=== PATIENT | male | born 1935 | race Hispanic/Latino ===

== ENCOUNTER 2017-11-01 16:04 | Observation (INO) | payer MEDICARE, OTHER ==
[2017-11-01] MEDS ORDERED: MORPHINE 4 MG/ML SYR ONE (16:21)
[2017-11-01] MEDS ORDERED: ONDANSETRON 4 MG/2 ML VIAL ONE (16:24)
[2017-11-01] MEDS ORDERED: Morphine 2 MG/2 ML SYR ONE (16:26)
[2017-11-01 16:39] LABS: Absolute Lymphocytes (CBC) 0.8 K/uL (0.7-4.9); Absolute Monocytes 1.3 K/uL (0.1-1.3); Absolute Neutrophil 7.1 K/uL (1.8-8.0); Basophils % 0.3 % (0-1.3); Eosinophils % 0.6 % (0-4.4); Hematocrit 41.5 % (39.6-49.0); MCH 32.4 pg (27.0-35.0); MCV 97.2 fL (80-100); MPV 10.8 fL (7.6-11.3); Monocytes % 13.6 % (3.3-12.3); RBC Red Blood Cell Count 4.27 M/uL (4.33-5.43)
[2017-11-01 16:43] LABS: Protime INR 1.44
--- NOTE | 2017-11-01 16:43 | RAD REPORT ---
EXAM DESCRIPTION: RAD - Chest Single View - 11/01/2017 4:34 pm CLINICAL HISTORY: Trauma, chest pain COMPARISON: None. FINDINGS: Portable technique limits examination quality. Mildly elevated right hemidiaphragm noted. The lungs are grossly clear. The heart is normal in size. No displaced fractures. IMPRESSION: No acute intrathoracic process suspected.
[2017-11-01 16:45] LABS: Potassium 3.3 mEq/L (3.6-5.0)
[2017-11-01 16:51] LABS: Bilirubin Direct 0.2 mg/dL (0-0.2); Magnesium 1.7 mg/dL (1.8-2.5); Protein, Total 6.9 g/dL (6.0-8.3)
[2017-11-01 16:54] LABS: CKMB Creatine Kinase MB 2.3 ng/ml (0.3-4.0)
--- NOTE | 2017-11-01 17:50 | RAD REPORT ---
EXAM DESCRIPTION: CT - Head C Spine Cap Wo Con - 11/01/2017 5:23 pm CLINICAL HISTORY: Trauma, head and neck injury. Chest, abdomen and pelvis pain. COMPARISON: 10/03/2001 TECHNIQUE: CT head without contrast. CT cervical spine without contrast with coronal and sagittal reformatted images. CT chest, abdomen and pelvis without contrast with coronal and sagittal reformatted images of the [facility]. All CT scans are performed using dose optimization technique as appropriate and may include automated exposure control or mA/KV adjustment according to patient size. FINDINGS: CT HEAD WITHOUT CONTRAST: No intracranial hemorrhage, hydrocephalus or extra-axial fluid collection. Multiple areas subarachnoi d space hyperdensity noted, unchanged as far back as the [address] This may be related to a remote myelogram which used Pantopaque contrast. No areas of brain edema or midline shift. The paranasal sinuses and mastoids are clear. The calvarium is intact. CT CERVICAL SPINE WITHOUT CONTRAST: No fracture or subluxation. Multilevel posterior laminectomy noted spanning C4-6. The prevertebral so ft tissues are normal in thickness. CT CHEST, ABDOMEN, PELVIS WITHOUT CONTRAST: NOTE: Lack of contrast is a significant limitation in the assessment of trauma related findings. Spec ifically, solid organ, vascular and bowel evaluation is significantly limited. The lungs are clear.No pneumothorax or pericardial/pleural fluid. No evidence of intra-abdominal visceral injury, free fluid or free air is seen within the above detai led limitations. Cholecystectomy clips. Multiple right renal cysts are present. IVC filter is noted. No concerning pelvic findings. No fractures. IMPRESSION: Negative for acute traumatic findings within the above detailed limitations.
[2017-11-01] MEDS ORDERED: NA CHLORIDE 0.9% 1,000 ML ONE (18:42)
--- NOTE | 2017-11-01 19:36 | ER ---
Nurse's Notes [facility] Name: Simone Narvaez Sr Age: 81 yrs Sex: Male : 1935 Arrival Date: 11/01/2017 Time: 16:01 Bed 4 Private MD: Diagnosis: Syncope and collapse;Diarrhea, unspecified;Urinary tract infection, site not specified Presentation: 11/01 15:56 Presenting complaint: EMS states: Pt was having pain and took a Tramadol, pt went sv outside and was dizzy. Pt passed out outside and fell outside of his house. Pt crawled out to the front of his house to get help. Pt's neighbor called 911. Abrasion to the back of the head, neck pain and low back pain. Diarrhea x 2 days, gas pain and left flank pain. BS-108. Care prior to arrival: Cervical collar in place. Placed on backboard. IV initiated. 20 GA, in the right hand, Glucose check: 108. Mechanism of Injury: Fall from standing position. Trauma event details: Injury occurred in the [facility], Injury occurred: at home. Injury occurred: November 01, 2017. 15:56 Acuity: SVEN 2 sv 15:56 Method Of Arrival: EMS: [facility] sv 16:05 Transition of care: patient was not received from another setting of care. Onset of sv symptoms was November 01, 2017. Initial Sepsis Screen: Does the patient meet any 2 criteria? No. Patient's initial sepsis screen is negative. Does the patient have a suspected source of infection? No. Patient's initial sepsis screen is negative. Trauma Activation: Alert Physician: ED Physician; Name: Dr. Banegas; Notified At: 15:52; Arrived At: 15:52 Physician: General Surgeon; Name: N/A; Notified At: 15:52; Arrived At: 15:52 Physician: Radiology; Name: Malini Rodríguez; Notified At: 15:52; Arrived At: 15:52 Physician: Respiratory; Name: N/A; Notified At: 15:52; Arrived At: N/A Physician: Lab; Name: N/A; Notified At: 15:52; Arrived At: N/A Historical: - Allergies: 16:09 Codeine; sv 16:09 Gluten Protein; sv - Home Meds: 16:09 Xarelto oral oral [Active]; amlodipine 2.5 mg tab 1 tab once daily for Hypertension sv [Active]; folic acid 400 mcg Oral tab 1 tab once daily [Active]; gabapentin 300 mg Oral cap 1 cap 3 times per day for Postherpetic Neuralgia [Active]; losartan-hydrochlorothiazide 50-12.5 mg Oral tab 1 tab once daily for Hypertension [Active]; Vision oral oral [Active]; lamotrigine oral oral [Active]; Osteo Bi-Flex oral oral [Active]; Glipizide Oral [Active]; fenofibrate oral oral [Active]; - PMHx: 16:09 DVT; Hypertension; pre-diabetic; sv - PSHx: 16:09 Neck surgery; sv - Immunization history:: Adult Immunizations up to date. - Immunization history: Last tetanus immunization: - up to date. - Social history:: Smoking status: Patient/guardian denies using tobacco. Screenin:18 Abuse screen: Denies threats or abuse. Denies injuries from another. Nutritional sv screening: No deficits noted. Tuberculosis screening: No symptoms or risk factors identified. Fall Risk No fall in past 12 months (0 pts). No secondary diagnosis (0 pts). IV access (20 points). Ambulatory Aid- None/Bed Rest/Nurse Assist (0 pts). Gait- Normal/Bed Rest/Wheelchair (0 pts) Mental Status- Oriented to own ability (0 pts). Total Hou Fall Scale indicates No Risk (0-24 pts). Primary Survey: 16:00 A: Airway: patent, No supplemental oxygen in use on arrival. Oral cavity: clear, iw dentures present. Breathing/Chest: Respiratory pattern: regular, Respiratory effort: spontaneous, unlabored, Breath sounds: clear, bilaterally. Chest inspection: symmetrical rise and fall of the chest. Circulation: Cardiac rhythm: sinus rhythm Heart tones present. Pulses: palpable right radial artery, left radial artery, left carotid pulse and right carotid pulse. Disability Alert. 16:10 Reassessment Airway Airway Patent Breathing/Chest Respiratory pattern Regular iw Respiratory effort Spontaneous Unlabored Breath sounds Clear Chest inspection Symmetrical Circulation Heart rhythm Sinus rhythm Heart tones Present Pulses Palpable Color [place] Temperature Warm Dry Disability Alert. Secondary Survey: 16:10 HEENT: Head Other abrasion to posterior left side of head. Gastrointestinal: Abdomen is iw soft, Bowel sounds present in all quadrants. Palpation No deficit noted. : No signs and/or symptoms were reported regarding the genitourinary system. Injury Description: Abrasion sustained to left lower rib cage is superficial. Assessment: 16:00 General: Appears uncomfortable, well developed, Behavior is calm, cooperative. Pain: iw Complains of pain in abdomen Quality of pain is described as bloating, gas pain. Neuro: Level of Consciousness is awake, alert, obeys commands, Oriented to person, place, time, Moves all extremities. Reports dizziness, a syncopal episode. Cardiovascular: Capillary refill < 3 seconds in bilateral fingers Patient's skin is warm and dry. Respiratory: Respiratory effort is even, unlabored, Respiratory pattern is regular, symmetrical. GI: Abdomen is flat, non-distended, Bowel sounds present X 4 quads. Abd is soft and non tender X 4 quads. Reports bloating, diarrhea. Derm: Skin is normal. Musculoskeletal: Range of motion: intact in all extremities. 16:34 Reassessment: Pt does not want pain medication at this time. sv 17:00 Reassessment: Patient appears in no apparent distress at this time. No changes from sv previously documented assessment. Patient and/or family updated on plan of care and expected duration. Pain level reassessed. Patient is alert, oriented x 3, equal unlabored respirations, skin warm/dry/pink. Pt cleaned of incontinence. 19:22 General: Appears in no apparent distress. uncomfortable, Behavior is calm, cooperative. ao General: Appears in no apparent distress. uncomfortable, Behavior is calm, cooperative, appropriate for age. Pain: Complains of pain in Right side. Neuro: Level of Consciousness is awake, alert, obeys commands, Oriented to person, place, time, Moves all extremities. Speech is normal, Facial symmetry appears normal. Cardiovascular: Capillary refill < 3 seconds in bilateral fingers Patient's skin is warm and dry. Respiratory: Airway is patent Respiratory effort is even, unlabored, Respiratory pattern is regular, symmetrical. GI: Abdomen is flat, non-distended, Bowel sounds present X 4 quads. Abd is soft and non tender X 4 quads. Reports bloating, diarrhea. : Reports inability to void. EENT: No signs and/or symptoms were reported regarding the EENT system. Derm: Skin is normal. Musculoskeletal: Range of motion: intact in all extremities. Vital Signs: 16:10 BP 129 / 68; Pulse 67; Resp 20; Temp 98.4; Pulse Ox 100% ; Weight 74.84 kg; Height 5 sv ft. 6 in. (167.64 cm); Pain 5/10; 16:34 BP 115 / 61; Pulse 63 MON; Resp 12; Temp 98.4(O); Pulse Ox 100% on R/A; sv 17:42 BP 150 / 67; Pulse 65; Resp 18; Pulse Ox 100% on R/A; sv 18:30 BP 144 / 63; Pulse 63; Resp 15; Pulse Ox 98% ; sv 19:24 BP 143 / 59; Pulse 63; Resp 18; Pulse Ox 99% on R/A; Pain 5/10; ao 20:13 BP 170 / 60; Pulse 59; Resp 19; Pulse Ox 100% on R/A; la1 20:58 BP 147 / 85; Pulse 61; Resp 19; Pulse Ox 100% on R/A; la1 16:10 Body Mass Index 26.63 (74.84 kg, 167.64 cm) sv 16:34 Sinus Rhythm sv Marcos Coma Score: 16:00 Eye Response: spontaneous(4). Verbal Response: oriented(5). Motor Response: obeys sv commands(6). Total: 15. 16:35 Eye Response: spontaneous(4). Verbal Response: oriented(5). Motor Response: obeys sv commands(6). Total: 15. 20:13 Eye Response: spontaneous(4). Verbal Response: oriented(5). Motor Response: obeys la1 commands(6). Total: 15. Trauma Score (Adult): 16:00 Eye Response: spontaneous(1); Verbal Response: oriented(1); Motor Response: obeys sv commands(2); Systolic BP: > 89 mm Hg(4); Respiratory Rate: 10 to 29 per min(4); Otley Score: 15; Trauma Score: 12 16:35 Eye Response: spontaneous(1); Verbal Response: oriented(1); Motor Response: obeys sv commands(2); Systolic BP: > 89 mm Hg(4); Respiratory Rate: 10 to 29 per min(4); Otley Score: 15; Trauma Score: 12 20:13 Eye Response: spontaneous(1); Verbal Response: oriented(1); Motor Response: obeys la1 commands(2); Systolic BP: > 89 mm Hg(4); Respiratory Rate: 10 to 29 per min(4); Marcos Score: 15; Trauma Score: 12 20:58 Eye Response: spontaneous(1); Verbal Response: oriented(1); Motor Response: obeys la1 commands(2); Systolic BP: > 89 mm Hg(4); Respiratory Rate: 10 to 29 per min(4); Otley Score: 15; Trauma Score: 12 ED Course: 16:00 Maintain EMS IV. Dressing intact. Site clean \T\ dry. Gauge \T\ site: 20G R hand. sv 16:01 Patient arrived in ED. sv 16:05 monitor and storage bin tender on. Pulse ox on. NIBP on. sv 16:05 Arm band placed on right wrist. sv 16:06 Triage completed. sv 16:10 Phillip Escoto PA is PHCP. cp 16:10 Wilman Banegas MD is Attending Physician. cp 16:15 Initial lab(s) drawn, by ED staff, sent to lab. Inserted saline lock: 18 gauge in right sv antecubital area, using aseptic technique. ,using aseptic technique. done by Tara Rodgers RN Blood collected. 16:16 Patient maintains SpO2 saturation greater than 95% on room air. Thermoregulation: warm sv blanket given to patient. 16:16 Patient has correct armband on for positive identification. Placed in gown. Bed in low sv position. Call light in reach. Side rails up X2. 16:21 Tara Harp, RAYSA is Primary Nurse. iw 16:34 XRAY Chest (1 view) In Process Unspecified. EDMS 16:47 Radiology exam delayed due to lab results not completed at this time. (BUN/Creatinine). cw1 16:50 Basic Metabolic Panel Sent. sv 17:[address] via stretcher. sv 17:23 CT completed. Patient moved back from CT. cw1 17:24 CT Traumagram (Head C Spine CAP wo con) In Process Unspecified. EDMS 19:17 role handed off by Amanda Louise RN sv 19:34 Kianna Sen MD is Hospitalizing Provider. cp 20:32 No provider procedures requiring assistance completed. Patient admitted, IV remains in la1 place. Administered Medications: 18:40 Drug: NS 0.9% 250 ml Route: IV; Rate: calculated rate; Site: right forearm; sg 20:13 Follow up: IV Status: Completed infusion la1 18:40 Drug: NS 0.9% 1000 ml Route: IV; Rate: 75 ml/hr; Site: right antecubital; sg 20:13 Follow up: IV Status: Infusion continued upon admission la1 20:15 Not Given (Patient Refused): morphine 2 mg IVP once la1 20:15 Not Given (Patient Refused): Zofran 4 mg IVP once; over 2 minutes la1 20:27 Drug: Rocephin - (cefTRIAXone) 1 grams Route: IVPB; Infused Over: 30 mins; Site: right la1 antecubital; 20:27 Follow up: IV Status: Infusion continued upon admission la1 Point of Care Testing: Blood Glucose: 16:14 Blood Glucose: 98 mg/dL; sv Ranges: Intake: 16:00 PO: 0ml; Total: 0ml. sv Output: 16:00 Urine: 0ml; Total: 0ml. sv 20:13 Urine: 400ml (Voided); Total: 400ml. la1 Outcome: 19:35 Decision to Hospitalize by Provider. cp 20:33 Admitted to Tele accompanied by tech, via stretcher, room 407, with chart, Report la1 called to Maritza 20:33 Condition: stable 20:33 Instructed on the need for admit. 20:33 Patient's length of stay in the Emergency Department was greater than 2 hours. la1 Admission process and obtaining urinePatient's length of stay extended due to 21:12 Patient left the ED. la1 Signatures: Dispatcher [employer] Amanda Floyd RN RN sv Gay, Steven, RN RN sg Williams, Irene, RN RN iw Woodley, Crystal cw1 Dayton Dia RN RN la1 Phillip Escoto PA PA cp Ortiz, Alex, RN RN ao Corrections: (The following items were deleted from the chart) 16:15 16:10 BP 129 / 68; Pulse 67bpm; Resp 20bpm; Pulse Ox 100%; 74.84 kg; sv sv
--- NOTE | 2017-11-01 19:36 | EDPHYS ---
Physician Documentation [facility] Name: Simone Narvaez Sr Age: 81 yrs Sex: Male : 1935 Arrival Date: 11/01/2017 Time: 16:01 Bed 4 Private MD: ED Physician Wilman Banegas HPI: 11/01 16:15 This 81 yrs old Male presents to ER via EMS with complaints of Fall Injury, cp Syncope. 16:15 Details of fall: The patient fell from an upright position, while walking. cp 16:15 Onset: The symptoms/episode began/occurred today. Associated injuries: The patient cp sustained injury to the head, contusion, injury to the chest, specifically the left lower rib area, pain with movement, tenderness. 16:15 Patient reports he walked outside back of house, became dizzy and collapse to ground. cp Patient was unable to get up and crawled around to front of house. Neighbor found him and called EMS. Patient reports taking tramadol prior to walking outside. Historical: - Allergies: 16:09 Codeine; sv 16:09 Gluten Protein; sv - Home Meds: 16:09 Xarelto oral oral [Active]; amlodipine 2.5 mg tab 1 tab once daily for Hypertension sv [Active]; folic acid 400 mcg Oral tab 1 tab once daily [Active]; gabapentin 300 mg Oral cap 1 cap 3 times per day for Postherpetic Neuralgia [Active]; losartan-hydrochlorothiazide 50-12.5 mg Oral tab 1 tab once daily for Hypertension [Active]; Vision oral oral [Active]; lamotrigine oral oral [Active]; Osteo Bi-Flex oral oral [Active]; Glipizide Oral [Active]; fenofibrate oral oral [Active]; - PMHx: 16:09 DVT; Hypertension; pre-diabetic; sv - PSHx: 16:09 Neck surgery; sv - Immunization history:: Adult Immunizations up to date. - Immunization history: Last tetanus immunization: - up to date. - Social history:: Smoking status: Patient/guardian denies using tobacco. ROS: 16:20 Constitutional: Negative for body aches, chills, fever, poor PO intake. cp 16:20 Eyes: Negative for injury, pain, redness, and discharge. cp 16:20 ENT: Negative for drainage from ear(s), ear pain, sore throat, difficulty swallowing, cp difficulty handling secretions. 16:20 Cardiovascular: Negative for chest pain, edema, palpitations. 16:20 Respiratory: Negative for cough, shortness of breath, wheezing. 16:20 Abdomen/GI: Positive for diarrhea, Negative for abdominal pain, nausea, vomiting, constipation, black/tarry stool, rectal bleeding. 16:20 : Negative for urinary symptoms, flank pain. cp 16:20 Skin: Negative for cellulitis, rash. 16:20 Neuro: Positive for syncope, Negative for altered mental status, seizure activity, weakness. 16:20 All other systems are negative. Exam: 16:08 ECG was reviewed by the Attending Physician. cp 16:25 Constitutional: The patient appears in no acute distress, alert, awake, cp non-diaphoretic, non-toxic, well developed, well nourished, uncomfortable. 16:25 Head/face: Noted is contusion, that is superficial, of the left side of the back of cp head. 16:25 Eyes: Periorbital structures: appear normal, Pupils: equal, round, and reactive to light and accomodation, Extraocular movements: intact throughout, Conjunctiva: normal, no exudate, no injection, Sclera: no appreciated abnormality, Lids and lashes: appear normal, bilaterally. 16:25 ENT: External ear(s): are unremarkable, Ear canal(s): are normal, clear, TM's: dullness, bilaterally, Nose: is normal, Mouth: Lips: moist, Oral mucosa: pink and intact, moist, Posterior pharynx: Airway: no evidence of obstruction, patent, Uvula: midline, non-edematous, no erythema, swelling, is not appreciated, erythema, is not appreciated, exudate, is not appreciated, Voice: is normal. 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 16:25 Cardiovascular: Rate: normal, Rhythm: regular, Pulses: Pulses are 2+ in right radial artery and left radial artery. Heart sounds: murmur, not appreciated, rub, not appreciated, gallop, not appreciated, Edema: is not appreciated, JVD: is not appreciated. 16:25 Respiratory: the patient does not display signs of respiratory distress, Respirations: normal, no use of accessory muscles, no retractions, no splinting, no tachypnea, labored breathing, is not present, Breath sounds: are clear throughout, no decreased breath sounds, no stridor, no wheezing. Vital Signs: 16:10 BP 129 / 68; Pulse 67; Resp 20; Temp 98.4; Pulse Ox 100% ; Weight 74.84 kg; Height 5 sv ft. 6 in. (167.64 cm); Pain 5/10; 16:34 BP 115 / 61; Pulse 63 MON; Resp 12; Temp 98.4(O); Pulse Ox 100% on R/A; sv 17:42 BP 150 / 67; Pulse 65; Resp 18; Pulse Ox 100% on R/A; sv 18:30 BP 144 / 63; Pulse 63; Resp 15; Pulse Ox 98% ; sv 19:24 BP 143 / 59; Pulse 63; Resp 18; Pulse Ox 99% on R/A; Pain 5/10; ao 20:13 BP 170 / 60; Pulse 59; Resp 19; Pulse Ox 100% on R/A; la1 20:58 BP 147 / 85; Pulse 61; Resp 19; Pulse Ox 100% on R/A; la1 16:10 Body Mass Index 26.63 (74.84 kg, 167.64 cm) sv 16:34 Sinus Rhythm sv Marcos Coma Score: 16:00 Eye Response: spontaneous(4). Verbal Response: oriented(5). Motor Response: obeys sv commands(6). Total: 15. 16:35 Eye Response: spontaneous(4). Verbal Response: oriented(5). Motor Response: obeys sv commands(6). Total: 15. 20:13 Eye Response: spontaneous(4). Verbal Response: oriented(5). Motor Response: obeys la1 commands(6). Total: 15. Trauma Score (Adult): 16:00 Eye Response: spontaneous(1); Verbal Response: oriented(1); Motor Response: obeys sv commands(2); Systolic BP: > 89 mm Hg(4); Respiratory Rate: 10 to 29 per min(4); Marcos Score: 15; Trauma Score: 12 16:35 Eye Response: spontaneous(1); Verbal Response: oriented(1); Motor Response: obeys sv commands(2); Systolic BP: > 89 mm Hg(4); Respiratory Rate: 10 to 29 per min(4); Marcos Score: 15; Trauma Score: 12 20:13 Eye Response: spontaneous(1); Verbal Response: oriented(1); Motor Response: obeys la1 commands(2); Systolic BP: > 89 mm Hg(4); Respiratory Rate: 10 to 29 per min(4); Carlton Score: 15; Trauma Score: 12 20:58 Eye Response: spontaneous(1); Verbal Response: oriented(1); Motor Response: obeys la1 commands(2); Systolic BP: > 89 mm Hg(4); Respiratory Rate: 10 to 29 per min(4); Carlton Score: 15; Trauma Score: 12 MDM: 16:10 Patient medically screened. cp 17:00 Differential diagnosis: closed head injury, contusion, fracture, multiple trauma. 18:25 Data reviewed: vital signs, nurses notes, lab test result(s), EKG, radiologic studies, cp CT scan, plain films. 18:28 Physician consultation: Anya Gross MD was called at 18:28, left msg on voicemail. 19:30 Response to treatment: the patient's symptoms have mildly improved after treatment, and cp as a result, I will admit patient. 19:30 Counseling: I had a detailed discussion with the patient and/or guardian regarding: the cp historical points, exam findings, and any diagnostic results supporting the discharge/admit diagnosis, lab results, radiology results, the need for further work-up and treatment in the hospital. 19:34 Physician consultation: Kianna Sen MD was called at 19:34, was contacted at 19:34, regarding admission, to the telemetry unit. patient's condition. 11/01 16:12 Order name: Basic Metabolic Panel cp 11/01 16:12 Order name: BNP; Complete Time: 17:07 cp 11/01 16:12 Order name: CBC with Diff; Complete Time: 17:07 11/01 17:08 Interpretation: Normal except: RBC 4.27; ADRIANNA% 76.5; LYM% 9.0; MN% 13.6. cp 11/01 16:12 Order name: Ckmb; Complete Time: 17:07 11/01 16:12 Order name: CPK; Complete Time: 17:07 11/01 16:12 Order name: LFT's; Complete Time: 17:07 11/01 16:12 Order name: Magnesium; Complete Time: 17:07 11/01 17:09 Interpretation: MG 1.7; Reviewed. 11/01 16:12 Order name: PT-INR; Complete Time: 17:07 11/01 16:12 Order name: Ptt, Activated; Complete Time: 17:07 11/01 16:12 Order name: Troponin (emerg Dept Use Only); Complete Time: 17:07 11/01 16:12 Order name: Basic Metabolic Panel; Complete Time: 17:07 EDUT 11/01 17:09 Interpretation: Normal except: K 3.3; CO2 19; BUN 29; CRE 2.05; GFR 31. 11/01 19:54 Order name: CBC with Automated Diff [facility] 11/01 19:54 Order name: CBC with Automated Diff [facility] 11/01 19:54 Order name: Comprehensive Metabolic Panel [facility] 11/01 16:12 Order name: XRAY Chest (1 view); Complete Time: 17:07 11/01 17:07 Order name: CT Traumagram (Head C Spine CAP wo con); Complete Time: 18:06 11/01 19:54 Order name: Echo with Doppler EDUT 11/01 19:54 Order name: Comprehensive Metabolic Panel [facility] 11/01 19:55 Order name: Carotid Artery Bilateral [facility] 11/01 20:20 Order name: Urine Microscopic Only [facility] 11/01 20:20 Order name: Urine Culture [facility] 11/01 20:22 Order name: Urine Dipstick--Ancillary (enter results) [facility] 11/01 20:24 Order name: Urine Dipstick-Ancillary [facility] 11/01 20:56 Order name: Urine Microscopic Only [facility] 11/01 16:12 Order name: EKG; Complete Time: 16:13 11/01 16:12 Order name: Cardiac monitoring; Complete Time: 16:32 11/01 16:12 Order name: EKG - Nurse/Tech; Complete Time: 16:32 11/01 16:12 Order name: IV Saline Lock; Complete Time: 16:32 11/01 16:12 Order name: Labs collected and sent; Complete Time: 16:32 11/01 16:12 Order name: O2 Per Protocol; Complete Time: 16:32 11/01 16:12 Order name: O2 Sat Monitoring; Complete Time: 16:32 11/01 16:12 Order name: Urine Dipstick-Ancillary (obtain specimen); Complete Time: 20:19 11/01 19:54 Order name: CONS Pharmacy Consult EDMS EC:08 Rate is 67 beats/min. Rhythm is regular. CT interval is prolonged at 208 msec. QRS cp interval is prolonged at 112 msec. QT interval is normal. Interpreted by me. Reviewed by me. Administered Medications: 18:40 Drug: NS 0.9% 250 ml Route: IV; Rate: calculated rate; Site: right forearm; sg 20:13 Follow up: IV Status: Completed infusion la1 18:40 Drug: NS 0.9% 1000 ml Route: IV; Rate: 75 ml/hr; Site: right antecubital; sg 20:13 Follow up: IV Status: Infusion continued upon admission la1 20:15 Not Given (Patient Refused): morphine 2 mg IVP once la1 20:15 Not Given (Patient Refused): Zofran 4 mg IVP once; over 2 minutes la1 20:27 Drug: Rocephin - (cefTRIAXone) 1 grams Route: IVPB; Infused Over: 30 mins; Site: right la1 antecubital; 20:27 Follow up: IV Status: Infusion continued upon admission la1 Point of Care Testing: Blood Glucose: 16:14 Blood Glucose: 98 mg/dL; sv Ranges: Critical Glucose Levels:Adult <50 mg/dl or >400 mg/dl <40 mg/dl or >180 mg/dl Disposition: 22:00 Chart complete. cp Disposition: 11/01/17 19:35 Hospitalization ordered by Kianna Sen for Observation. Preliminary diagnosis are Syncope and collapse, Diarrhea, unspecified, Urinary tract infection, site not specified. - Bed requested for Telemetry/MedSurg (observation). - Status is Observation. la1 - Condition is Stable. - Problem is new. - Symptoms have improved. UTI on Admission? Yes Addendum: 11/10/2017 05:58 Co-signature as Attending Physician, Wilman Banegas MD I agree with the assessment and w a plan of care. Signatures: Dispatcher [employer] EDMS Amanda Louise RN RAYSA Domonique Olivier RN RAYSA Pankaj Duran RN RN sg Attema, Lee RN RAYSA la1 Phillip Escoto PA PA cp Appiah, William, MD MD wa Corrections: (The following items were deleted from the chart) 11/01 17:08 16:13 Head C Spine CAP W Con+CT.RAD.BRZ ordered. EDMS EDMS 17:10 17:08 Head C Spine Cap Wo Con ordered. EDUT EDMS 19:46 19:35 Hospitalization Ordered by Kianna Sen MD for Observation. Preliminary mw diagnosis is Syncope and collapse; Diarrhea, unspecified. Bed requested for Telemetry/MedSurg (observation). Status is Observation. Condition is Stable. Problem is new. Symptoms have improved. UTI on Admission? No. cp 20:15 18:08 [place] ordered. cp la1 20:21 19:46 11/01/2017 19:35 Hospitalization Ordered by Kianna Sen MD for Observation. cp Preliminary diagnosis is Syncope and collapse; Diarrhea, unspecified. Bed requested for Telemetry/MedSurg (observation). Status is Observation. Condition is Stable. Problem is new. Symptoms have improved. UTI on Admission? No. mw 21:12 20:21 11/01/2017 19:35 Hospitalization Ordered by Kianna Sen MD for Observation. la1 Preliminary diagnosis is Syncope and collapse; Diarrhea, unspecified; Urinary tract infection, site not specified. Bed requested for Telemetry/MedSurg (observation). Status is Observation. Condition is Stable. Problem is new. Symptoms have improved. UTI on Admission? Yes. cp
[2017-11-01] MEDS ORDERED: ONDANSETRON 4 MG/2 ML VIAL IV PRN (19:51)
[2017-11-01] MEDS ORDERED: ACETAMINOPHEN 500 MG TAB PO PRN (19:51)
[2017-11-01] MEDS ORDERED: MORPHINE 2 MG/ML SYR IV PRN (19:51)
[2017-11-01 20:23] LABS: Urine Blood NEGATIVE (NEG); Urine Glucose NEGATIVE (NEG); Urine Protein NEGATIVE (NEG); Urine Specific Gravity <1.005 (1.005-1.030); Urine pH 5.5 (5.0-7.0)
[2017-11-01] MEDS ORDERED: CEFTRIAXONE/SWI 1gm 1 GM/10 ML SYR ONE (20:25)
[2017-11-01 20:55] LABS: Urine Bacteria LOADED /HPF (NONE SEEN); Urine Culture Reflex Order NOT NEEDED; Urine RBC <5 /HPF (NONE SEEN)
--- NOTE | 2017-11-01 21:20 | RAD REPORT ---
EXAM DESCRIPTION: RACHEL - CP - 11/01/2017 9:14 pm CLINICAL HISTORY: Syncope COMPARISON: None. TECHNIQUE: Real-time sonographic evaluation of both carotid systems was performed. Doppler interroga tion was performed with waveform tracing bilaterally. FINDINGS: Normal high resistance waveforms are noted in both external carotid arteries. The common c arotid arteries and internal carotid arteries show normal low resistance waveforms. Mild soft plaque is seen in the left carotid bulb. Small focal hard plaque is noted left common carot id. Peak systolic and end diastolic velocity values and the ICA/CCA ratios are in the non-hemodynamic ally significant range. Antegrade flow seen in both vertebral arteries. IMPRESSION: Mild soft plaquing noted left carotid bulb. No evidence of a hemodynamically significant stenosis.
[2017-11-01] MEDS: NA CHLORIDE 0.9% 1,000 ML IV SCH (22:29)
--- NOTE | 2017-11-02 01:27 | P.HP ---
Certification for Inpatient Patient admitted to: Observation With expected LOS: <2 Midnights Patient will require the following post-hospital care: None Practitioner: I am a practitioner with admitting privileges, knowledge of patient current condition, hospital course, and medical plan of care. Services: Services provided to patient in accordance with Admission requirements found in Title 42 Section 412.3 of the Code of Federal Regulations Patient History Date of Service: 11/01/17 Reason for admission: Syncope History of Present Illness: Patient is an 81-year-old gentleman who came into the hospital after a syncopal event. Patient has been having diarrhea for the last 48 hrs. He states he is unable to count how many times he has gone to the restroom today. He was in his driveway when he suddenly became dizzy and collapsed. He crawled towards his driveway, and one of the neighbors saw him lying in his driveway. EMS was called. Patient was brought into the hospital for evaluation. Patient EKG and troponins are negative. Patient was found to have prerenal azotemia, and appears to be very dehydrated. Patient was brought into the hospital and will be worked up for the syncopal event. We will go ahead and admit patient for observation and monitor on telemetry. Allergies codeine Allergy (Verified 11/01/17 23:03) Unknown Gluten Protein Allergy (Uncoded 11/01/17 23:03) Unknown Home Medications: Amlodipine Besylate 5 mg PO DAILY 11/01/17 Fish Oil/Dha/Epa [Fish Oil 1,200 mg Fish Oil] 1 cap PO DAILY 11/01/17 Folic Acid 0.4 mg PO DAILY 11/01/17 Gabapentin [Gralise] 300 mg PO TID 11/01/17 Glipizide [Glucotrol] 5 mg PO DAILY 11/01/17 Glucosamine/D3/Boswellia Viviana [Osteo Bi-Flex Tablet] 1 each PO DAILY 11/01/17 Lamotrigine [Lamictal] 25 mg PO DAILY 11/01/17 Losartan/Hydrochlorothiazide [Losartan-Hctz 100-12.5 mg Tab] 1 tab PO DAILY Pioglitazone HCl 30 mg PO DAILY 11/01/17 Rivaroxaban [Xarelto] 20 mg PO DAILY 11/01/17 Tramadol HCl [Ultram] 50 mg PO Q6H PRN 11/01/17 Vit A/C/E/Zinc/Selenium/Copper [Vision Formula Tablet] 1 each PO DAILY 11/01/17 - Past Medical/Surgical History Has patient received pneumonia vaccine in the past: Yes Diabetic: Yes -: HTN -: NIDDM -: Hx DVT (2016) -: Kidney disease (bilat 50% functional per pt's report) -: Nodules in the lungs -: Neuropathy -: back neck -: gall bladder -: lower back -: Bilat cataract sx - Family History Mother Medical History: Hypertension - Social History Smoking Status: Former smoker Alcohol use: Yes CD- Drugs: No Caffeine use: Yes Place of Residence: Home Review of Systems 10-point ROS is otherwise unremarkable Physical Examination - Vital Signs Temperature: 98.2 F Blood Pressure: 167/71 Pulse: 52 Respirations: 19 Pulse Ox (%): 97 - Physical Exam General: Alert, In no apparent distress, Oriented x3 HEENT: Atraumatic, PERRLA, Mucous membr. moist/pink, EOMI, Sclerae nonicteric Neck: Supple, 2+ carotid pulse no bruit, No LAD, Without JVD or thyroid abnormality Respiratory: Clear to auscultation bilaterally, Normal air movement Cardiovascular: Regular rate/rhythm, Normal S1 S2, No murmurs Gastrointestinal: Normal bowel sounds, Soft and benign, Non-distended, No tenderness Musculoskeletal: No clubbing, No swelling, No tenderness Integumentary: No rashes Neurological: Normal gait, Normal speech, Normal strength at 5/5 x4 extr, Normal tone, Sensation intact, Cranial nerves 3-12 intact, Normal affect Lymphatics: No axilla or inguinal lymphadenopathy - Studies Laboratory Data (last 24 hrs) 11/01/17 16:20: PT 17.0 H, INR 1.44, APTT 29.5 11/01/17 16:20: WBC 9.2, Hgb 13.9, Hct 41.5, Plt Count 155 11/01/17 16:20: B-Natriuretic Peptide 73 11/01/17 16:20: Sodium 135, Potassium 3.3 L, BUN 29 H, Creatinine 2.05 H, Glucose 110, Magnesium 1.7 L, Total Bilirubin 1.0, AST 96 H, ALT 60, Alkaline Phosphatase 39 L Assessment & Plan - Problems (Diagnosis) (1) Syncope and collapse Current Visit: Yes Status: Acute (2) Hypertension Current Visit: Yes Status: Acute (3) Type 2 diabetes mellitus Current Visit: Yes Status: Acute (4) Diarrhea Current Visit: Yes Status: Acute (5) Chronic kidney disease Current Visit: Yes Status: Acute (6) Urinary tract infection Current Visit: Yes Status: Acute - Plan Plan: 1. Serial troponins and EKG 2. Cardiology consultation if any arrhythmias or cardiac abnormalities noted on imaging study 3. Echocardiogram and carotid Doppler 4. IV hydration 5. Stool studies and Imodium if persistent diarrhea 6. GI and DVT prophylaxis Discharge Plan: Home Plan to discharge in: 24 Hours - Advance Directives Does patient have a Living Will: No Does patient have a Durable POA for Healthcare: No - Code Status/Comfort Care Code Status Assessed: Yes Code Status: Full Code Critical Care: No Time Spent Managing PTS Care (In Minutes): 50
[2017-11-02 04:09] LABS: Absolute Lymphocytes (CBC) 1.1 K/uL (0.7-4.9); Absolute Monocytes 1.1 K/uL (0.1-1.3); Absolute Neutrophil 4.7 K/uL (1.8-8.0); Basophils % 0.7 % (0-1.3); Eosinophils % 2.1 % (0-4.4); Lymphocytes % 15.2 % (15.3-44.8); MCH 32.7 pg (27.0-35.0); MCV 96.8 fL (80-100); MPV 10.1 fL (7.6-11.3); Monocytes % 15.9 % (3.3-12.3); RBC Red Blood Cell Count 4.24 M/uL (4.33-5.43)
[2017-11-02 04:54] LABS: Albumin 3.6 g/dL (3.2-5.5); Bilirubin Total 0.6 mg/dL (0.3-1.2); Potassium 3.7 mEq/L (3.6-5.0); Protein, Total 6.6 g/dL (6.0-8.3)
[2017-11-02] MEDS: NA CHLORIDE 0.9% 1,000 ML IV SCH ×2 (06:39→16:00)
[2017-11-02] MEDS ORDERED: Morphine 2 MG/2 ML SYR IV PRN (07:00)
[2017-11-02] MEDS ORDERED: TRAMADOL HCL 50 MG TAB PO PRN (07:07)
[2017-11-02] MEDS ORDERED: REGADENOSON 0.4 MG/5 ML SYR IV ONE (08:10)
[2017-11-02] MEDS ORDERED: AMLODIPINE 5 MG TAB PO SCH (09:00)
[2017-11-02] MEDS ORDERED: FOLIC ACID 1 MG TABLET PO SCH (09:00)
[2017-11-02] MEDS ORDERED: DOCOSAHEXANOIC AC/EPA 1000 MG PO SCH (09:00)
[2017-11-02] MEDS ORDERED: OCUVITE (VIT A,C & E/LUTEIN/MINERAL) TABLET PO SCH (09:00)
[2017-11-02] MEDS ORDERED: lamoTRIgine 25 MG TAB PO SCH (09:00)
--- NOTE | 2017-11-02 12:10 | RAD REPORT ---
EXAM DESCRIPTION: MRI - Stroke Protocol - 11/02/2017 10:57 am CLINICAL HISTORY: CVA.Syncope COMPARISON: 11/01/2017 TECHNIQUE: MRI of brain with diffusion-weighted imaging with contrast 3D [id number] non contrast MR angiography of the [place]. 2D [id number] post contrast MR angiography of the neck vessels. Approximately 20 cc of Magnevist contrast was administered during the study. FINDINGS: No intracranial hemorrhage, hydrocephalus or extra-axial fluid collection is seen. Moderat e confluent T2/FLAIR hyperintensity in the periventricular and deep white matter is present compatibl e with chronic microvascular ischemic changes.No areas of brain edema or midline shift. No intracrani al mass lesion. Diffusion-weighted imaging is negative for acute CVA. The midline structures are normally formed. Post-contrast imaging through the brain shows no abnormal enhancement to suggest tumor or infection. Mastoid air cells and paranasal sinuses are clear. MR angiography of the [place] shows no aneurysm, flow-limiting stenosis or vascular malforma tion. MR angiography of the neck vessels shows no significant carotid stenosis. Antegrade flow is seen in b oth vertebral arteries. IMPRESSION: Negative for acute CVA or other acute intracranial abnormality.
--- NOTE | 2017-11-02 12:42 | RAD REPORT ---
EXAM DESCRIPTION: NM - Rest Stress Cardiac Imaging - 11/02/2017 12:36 pm CLINICAL HISTORY: Chest pain. COMPARISON: None. TECHNIQUE: The patient was administered approximately 10mCi of Tc 99m Sestamibi prior to resting SPE CT imaging of the heart. The patient was then administered approximately 30 mCi of Tc 99m Sestamibi f ollowing exercise or pharmacologic stress. Multiplanar SPECT images were reviewed. FINDINGS: No stress induced ischemic defect is seen to suggest stress induced ischemia. No fixed def ect is seen to suggest hibernating myocardium or scarred myocardium. The end diastolic volume is 95 ml, the end systolic volume is 35 ml, and the ejection fraction is 64 %. IMPRESSION: No stress induced ischemia.
--- NOTE | 2017-11-02 12:51 | TREADPHA ---
DX: CHEST PAIN Date of Study: 11/02/17 Ht: 5 6 Wt: 165 lb 0 oz Consulting Physician: JAZMINE MEDICATIONS: TYLENOL, NORVASC, FISH OIL, FOLIC ACID, LAMICTAL, ZOFRAN, XARELTO, ULTRAM HISTORY: PHYSICIAL EXAMINATION: RESTING B.P.: 140/60 RESTING H.R.: 52 RESTING EKG: SINUS BRADYCARDIA, FIRST DEGREE AV BLOCK. PROTOCOL: LEXISCAN EXERCISE TIME: 3:30 B.P. AT PEAK STRESS: 132/68 IMPRESSION: LEXISCAN STRESS TEST PERFORMED CARDIOLITE INJECTED PER PROTOCOL. NO SUPRA VENTRICULAR TACHYCARDIA OR VENTRICULAR TACHYCARDIA NOTED. SEE NUCLEAR MEDICINE REPORT. NON DIAGNSOTIC EKG WITH LEXISCAN STRESS.
--- NOTE | 2017-11-02 14:46 | EKG ---
Test Date: 2017-11-01 Test Time: 16:03:11 Stock Clerk: SWG MEASUREMENT RESULTS: Intervals: Rate: 67 VT: 208 QRSD: 112 QT: 412 QTc: 435 [place]: P: 29 VT: 208 QRS: 37 T: 48 INTERPRETIVE STATEMENTS: Normal sinus rhythm Normal ECG Compared to ECG 01/04/2010 12:33:26 criteria for inferior infarct are no longer present Electronically Signed On 11-02-17 14:46:02 CDT by Christo Cowan
[2017-11-02 15:46] LABS: Potassium 4.8 mEq/L (3.6-5.0)
[2017-11-02] MEDS ORDERED: NACHLORIDE 0.45% 1,000 ML IV SCH (17:00)
[2017-11-02] MEDS ORDERED: RIVAROXABAN 20 MG TABLET PO SCH (17:00)
--- NOTE | 2017-11-02 17:38 | P.DS ---
Admission Date: 11/01/17 Discharge Date: 11/02/17 Primary Care Provider: Dr. Prashant Dooley, [facility] Disposition: ROUTINE DISCHARGE Discharge Condition: GOOD Reason for Admission: Syncope Procedures: Stress test: No stress induced ischemia. MRI Stroke protocol: No acute abnormality. Carotid doppler: No carotid stenosis. - Problems (1) Chronic kidney disease Onset Date: 11/02/17 Current Visit: Yes Status: Chronic Qualifiers: Chronic kidney disease stage: stage 2 (mild) Qualified Code(s): N18.2 - Chronic kidney disease, stage 2 (mild) (2) Diarrhea Onset Date: 11/02/17 Current Visit: Yes Status: Acute Qualifiers: Diarrhea type: unspecified type Qualified Code(s): R19.7 - Diarrhea, unspecified (3) Hypertension Onset Date: 11/02/17 Current Visit: Yes Status: Chronic Qualifiers: Hypertension type: essential hypertension Qualified Code(s): I10 - Essential (primary) hypertension (4) Syncope and collapse Onset Date: 11/02/17 Current Visit: Yes Status: Acute (5) Type 2 diabetes mellitus Onset Date: 11/02/17 Current Visit: Yes Status: Chronic Qualifiers: Diabetes mellitus terminal carman insulin use: without group home use Diabetes mellitus complication status: with other specified complication Qualified Code (s): E11.69 - Type 2 diabetes mellitus with other specified complication (6) Urinary tract infection Onset Date: 11/02/17 Current Visit: Yes Status: Acute Qualifiers: Urinary tract infection type: site unspecified Hematuria presence: without hematuria Qualified Code(s): N39.0 - Urinary tract infection, site not specified (7) History of DVT (deep vein thrombosis) Current Visit: Yes Status: Chronic (8) Chronic anticoagulation Current Visit: Yes Status: Chronic (9) 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 He reports that he was having some diarrhea recently. He mentioned not having good oral intake. He was going to his car when he felt lightheaded and blanked out. He was seen in the ER. He was evaluated. Initial CT brain was negative. He was admitted for further evaluation. Hospital Course: During his stay, he was evaluated for his syncopal episode. It was thought it was from dehydration. CT of the head, neck, chest and abdomen was unremarkable. He also had an MRI stroke protocol to address this further. No acute finding was noted. Carotid doppler showed no acute stenosis. Cardiac stress test showed no stress induced ischemia. EF was normal. He was given IV fluids with improvement. His diarrhea improved. He was found to have a UTI. Urine culture was pending. At discharge, he was doing well. No chest pain, SOB, or diarrhea was noted. He will be sent home with Cipro 250 mg one pill twice daily for 7 days to treat his UTI. Recommendation is to follow up with a repeat urine culture in 7-10 days to monitor resolution. UTI prevention will be provided. His diarrhea has improved. C. Diff culture was negative. He may take Imodium as needed. He has HTN. Medication has been adjusted due to his renal insufficiency. Losartan HCT has been discontinued. BP has been stable with Norvasc only. At discharge he may continue with Norvasc 5 mg one pill every day. Recommendation is to maintain BP less than 150/80. If elevated, he will need to contact his PCP for recommendations. He has DM. He will continue with Glipizide and Actos. He is to monitor for hypoglycemia. Recommendation is to maintain his BS less than 140 fasting and less than 200 after meals. Further adjustment can be done by his PCP. Patient has DM neuropathy. He may continue with Gabapentin and Tramadol. He will need to limit his Tramadol in the future. He has Chronic renal disease. This remains improved. He will need to follow up with Nephrology as outpatient to further monitor. Recommendation is to obtain Lab-BMP in 1 week to monitor his progress. He has history of recurrent DVT with IVC filter. He is taking Chronic anticoagulation. He may continue with this medication. This is to be monitored closely since he chronic renal disease. 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 He may continue with this medication. His liver function was elevated. Lab-Hepatitis panel has been obtained. He will need to follow up with his PCP to go over results. Vital Signs/Physical Exam: Temp Pulse Resp BP Pulse Ox 97.9 F 60 18 150/60 H 100 11/02/17 16:00 11/02/17 16:00 11/02/17 16:00 11/02/17 16:00 11/02/17 16:00 General: Alert, In no apparent distress, Oriented x3, Cooperative HEENT: Atraumatic Neck: Supple Respiratory: Clear to auscultation bilaterally, Normal air movement Cardiovascular: Normal pulses, Regular rate/rhythm Gastrointestinal: Normal bowel sounds, Soft and benign, Non-distended, No tenderness, No masses, No rebound Musculoskeletal: No erythema, No tenderness, No warmth Integumentary: No tenderness/swelling, No erythema, No warmth, No cyanosis Neurological: Normal speech, Normal strength at 5/5 x4 extr, Normal tone Laboratory Data at Discharge: WBC 7.1 K/uL (4.3-10.9) D 11/02/17 03:50 Hgb 13.8 g/dL (13.6-17.9) 11/02/17 03:50 Hct 41.0 % (39.6-49.0) 11/02/17 03:50 Plt Count 139 K/uL (152-406) L 11/02/17 03:50 PT 17.0 SECONDS (9.5-12.5) H 11/01/17 16:20 INR 1.44 11/01/17 16:20 APTT 29.5 SECONDS (24.3-36.9) 11/01/17 16:20 Sodium 155 mEq/L (135-145) H 11/02/17 15:15 Potassium 4.8 mEq/L (3.6-5.0) 11/02/17 15:15 BUN 25 mg/dL (6-20) H 11/02/17 15:15 Creatinine 1.59 mg/dL (0.61-1.24) H 11/02/17 15:15 Glucose 146 mg/dL (65-120) H 11/02/17 15:15 Magnesium 1.7 mg/dL (1.8-2.5) L 11/01/17 16:20 Total Bilirubin 0.6 mg/dL (0.3-1.2) 11/02/17 03:50 AST 93 IU/L (10-42) H 11/02/17 03:50 ALT 72 IU/L (10-60) H 11/02/17 03:50 Alkaline Phosphatase 33 IU/L (42-121) L 11/02/17 03:50 B-Natriuretic Peptide 73 pg/ml (<=100) 11/01/17 16:20 Home Medications: Amlodipine Besylate 5 mg PO DAILY 11/01/17 Fish Oil/Dha/Epa [Fish Oil 1,200 mg Fish Oil] 1 cap PO DAILY 11/01/17 Folic Acid 0.4 mg PO DAILY 11/01/17 Gabapentin [Gralise] 300 mg PO TID 11/01/17 Glipizide [Glucotrol*] 5 mg PO DAILY 11/01/17 Glucosamine/D3/Boswellia Viviana [Osteo Bi-Flex Tablet] 1 each PO DAILY 11/01/17 Lamotrigine [Lamictal*] 25 mg PO DAILY 11/01/17 Pioglitazone HCl 30 mg PO DAILY 11/01/17 Rivaroxaban [Xarelto] 20 mg PO DAILY 11/01/17 Tramadol HCl [Ultram] 50 mg PO Q6H PRN 11/01/17 Vit A/C/E/Zinc/Selenium/Copper [Vision Formula Tablet] 1 each PO DAILY 11/01/17 Ciprofloxacin HCl [Cipro 250 MG Tablet*] 250 mg PO BID #14 tab 11/02/17 New Medications: Ciprofloxacin HCl [Cipro 250 MG Tablet*] 250 mg PO BID #14 tab Patient Discharge Instructions: 1. Patient will need to follow up with his PCP in 1 week to follow up this hospitalization. 2. Patient presented with syncope related to diarrhea and dehydration. He received IV fluids and this has resolved. During his stay, CT of the head, neck, chest and abdomen was unremarkable. MRI brain showed no acute finding. Carotid doppler showed no acute stenosis. Cardiac stress test showed no stress induced ischemia. EF was normal. He was found to have a UTI. Urine culture was pending. At discharge, he was doing well. No chest pain, SOB, or diarrhea was noted. At discharge he will continue with Cipro 250 mg one pill twice daily for 7 days to treat his UTI. Recommendation is to follow up with a repeat urine culture in 7-10 days to monitor resolution. UTI prevention will be provided. 3. His diarrhea has improved. C. Diff culture was negative. He may take Imodium as needed. 4. He has HTN. Medication has been adjusted due to his renal insufficiency. Losartan HCT has been discontinued. BP has been stable with Norvasc only. At discharge he may continue with Norvasc 5 mg one pill every day. Recommendation is to maintain BP less than 150/80. If elevated, he will need to contact his PCP for recommendations. 5. He has DM. He will continue with Glipizide and Actos. He is to monitor for hypoglycemia. Recommendation is to maintain his BS less than 140 fasting and less than 200 after meals. Further adjustment can be done by his PCP. 6. Patient has DM neuropathy. He may continue with Gabapentin and Tramadol. He will need to limit his Tramadol in the future. 7. He has Chronic renal disease. This remains improved. He will need to follow up with Nephrology as outpatient to further monitor. Recommendation on no further use of NSAIDS. Future medication will need to be renally dosed. Recommendation is to obtain Lab -BMP in 1 week to monitor his progress. 8. He has history of recurrent DVT with IVC filter. He is taking Chronic anticoagulation. He may continue with this medication. This is to be monitored closely since he chronic renal disease. 9. 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 He may continue with this medication. 10. His liver function was elevated. Lab-Hepatitis panel has been obtained. He will need to follow up with his PCP to go over results. Diet: Renal Activity: Fall precautions Time spent managing pt's care (in minutes): 55
[2017-11-04 14:04] LABS: HBsAG Nonreactive (Nonreactive); Hepatitis A IgM Antibody Nonreactive
--- NOTE | 2017-11-04 15:01 | EEG ---
CHART: [id number] TEST ID#: [id number] DATE OF STUDY: 11/02/2017 THE EEG WAS RECORDED PORTABLE IN THE PATIENTS ROOM ON A 17 CHANNEL MACHINE. ELECTRODES WERE APPLIED IN THE USUAL MANNER USING THE INTERNATIONAL 10-20 SYSTEM. THE WAKING BACKGROUND RHYTHM IN THIS RECORD CONSISTS OF VERY WELL DEVELOPED AND WELL ORGANIZED WAVES OF 9 HZ., MAXIMAL IN THE POSTERIOR HEAD REGIONS WHICH ATTENUATE NORMALLY WITH EYE OPENING. LOW-VOLTAGE 18-22 HZ ACTIVITY IS EXPRESSED IN THE FRONTAL REGIONS. THERE ARE NO FOCAL OR LATERALIZING FEATURES. NO EPILEPTIFORM ACTIVITY APPEARS. SLEEP OCCURRED NATURALLY. IN ADDIOTION TO NORMAL SLEEP PATTERNS ARE PRESENT. HYPERVENTILATION WAS NOT PREFORMED. PHOTIC STIMULATION PRODUCED POOR DRIVING BILATERALLY. IMPRESSION: NORMAL EEG FOR THE AGE OF THE PATIENT IN [place], DROWSINESS AND SLEEP.
== END 2017-11-02 21:41 | disposition home or self-care (01) ==
LOC: ER 16:04 → ERHOLD 19:53 → 4TH 20:30
PROVIDERS: ADMIT Hospitalist; ATTEND Family Medicine
DX: R55 Syncope and collapse (principal); I10 Essential (primary) hypertension; R19.7 Diarrhea, unspecified; E11.22 Type 2 diabetes mellitus with diabetic chronic kidney disease; I12.9 Hypertensive chronic kidney disease with stage 1 through stage 4 chronic kidney disease, or unspecified chronic kidney disease; N39.0 Urinary tract infection, site not specified; N18.2 Chronic kidney disease, stage 2 (mild); Z86.718 Personal history of other venous thrombosis and embolism
CPT/HCPCS: 36415; 70450; 70544; 70549; 70553; 71045; 71250; 72125; 78452; 80048 ×3; 80053; 80074; 80076; 82550; 82553; 82962 ×5; 83735; 83880; 84484; 85025 ×2; 85610; 85730; 87077; 87086; 87088; 87186; 87493; 93005; 93017; 93880; 95819; 96361; 96365; 96366; 96374; 96375; 97163; 99285; A9500; A9577; G0378 ×2; J0696; J2785; J7030 ×2; 81003; 81015; J2270; J2405

== ENCOUNTER 2018-02-01 09:30 | Emergency (ER) | payer MEDICARE ==
--- OUTSIDE RECORDS SUMMARY | 2018-02-01 09:35 | XMS REPORT | Continuity of Care Document ---
:1935 Author Organization Interface Problems Problem Status Onset Classification Date Comments Source Date Reported Discharge 01/27/20 01/29/2017 [facility] Diagnosis: 17 Acute embolism and thrombosis of other specified deep vein of right lower extremity RT LEG SWELLING Active 01/27/20 [facility] 17 I82.409 Active 01/01/20 [facility] 17 I87.331 - Active 10/02/19 [facility] CHRONIC VENOUS 17 [facility] HTN W ULCER AND DX: Active 05/13/20 [facility] E11.622///I70.2 16 03/// ART DOPPLER LOW E11.622, Active 05/01/20 [facility] I70.203 16 L97.819 Active 04/28/20 [facility] 16 DVT Active 04/11/20 [facility] 16 M54.5 - LOW Active 12/12/19 [facility] BACK PAIN 16 [facility] LEG PAIN Active 12/12/19 [facility] 16 ACUTE LEFT Active 12/12/19 [facility] LOWER EXTREMITY 16 DVT DEEP VENOUS Active 12/12/19 [facility] THROMBOSIS 16 [place], LEG PAIN Active 12/12/19 [facility] 16 733.0 - Active 04/06/20 [facility] OSTEOPOROSIS 14 [facility] 723.1 - Active 12/15/19 [facility] CERVICALGIA 13 [facility] Depression Resolved Problem 01/29/2017 [facility] (<span [facility] ID="[id number] [facility] 9">Confirmed</s farrar>) Diabetes Active Problem 01/29/2017 [facility] Hypertension Resolved Problem 01/29/2017 [facility] Atypical chest Active Problem 01/29/2017 pain [facility] OPID [facility] DVT (<span Active Problem 01/29/2017 ID="[id number] [facility] 1">Confirmed</s OPID farrar>) [facility] OPID [place] wound Resolved Problem 01/29/2017 [facility], OPID [facility], OP[facility] [place] EDEMA, Active [facility] UNSPECIFIED ACUTE EMBOLISM Active [facility] AND [facility] UNSP DEEP VN ACUTE EMBOLISM Active [facility] AND THROMBOSIS OF [place] NON-PRESSURE Active [facility] CHRONIC ULCER OTH PRT R LOW TYPE 2 DIABETES Active [facility] MELLITUS WITH OTHER SKIN UNSP ATHSCL Active [facility] [place] ARTERIES OF EXTREMITI Medications Medication Details Route Status Patient Ordering Order Source Instructions Provider Date tramadol 50 mg=1 tab, Active hydrochloride 50 PO, Q6H, PRN 2016 [facility] MG Oral Tablet Pain, X 7 day, # 28 tab, 0 Refill(s) rivaroxaban 15 MG 15 mg=1 tab, Active Oral Tablet PO, BID, # 42 2016 [facility] [Xarelto] tab, 0 Refill(s) Saline Flush 0.9% 10 mL, Route: Inactive IVP, Drug 2016 [facility] Form: INJ, Dosing Weight 75, kg, PRN, PRN Line Flush, Start date: 01/26/17 13:17:00 CDT, Duration: 30 day, Stop date: 02/25/17 13:16:00 CDTNotes: (Same as: BD Posiflush) pioglitazone 30 mg 30 mg=1 tab, Active oral tablet PO, Daily, # 2016 [facility] 90 tab, 0 Refill(s) amLODIPine 5 mg 5 mg=1 tab, Active oral tablet PO, Daily, # 2016 [facility] 30 tab, 0 Refill(s) carBAMazepine 200 200 mg=1 tab, Active mg oral tablet PO, BID, # 60 2016 [facility] tab, 3 Refill(s) Glipizide 5 MG 5 mg=1 tab, Active Oral Tablet PO, Before 2016 [facility] Breakfast, # 90 tab, 0 Refill(s) Prilosec PO, Daily, 0 Active Refill(s) 2016 [facility] Fish Oil 1200 mg 1,200 mg=1 Active oral capsule cap, PO, TID, 2016 [facility] 0 Refill(s) rivaroxaban 20 MG 20 mg=1 tab, No Longer Oral Tablet PO, QPM, # 30 Active 2016 [facility] [Xarelto] tab, 3 Refill(s) Fenofibrate 54 MG 54 mg=1 tab, Active Oral Tablet PO, Daily, # 2016 [facility] 30 tab, 0 Refill(s) sodium chloride 1,000 mL, No Longer 0.9% 1000 ml INJ Rate: 125 Active 2016 [facility] 1,000 mL ml/hr, Infuse over: 8 hr, Route: IV, Dosing Weight 75.909 kg, Total Volume: 1,000, Start date: 01/05/17 8:53:00 CDT, Duration: 30 day, Stop date: 02/04/17 8:52:00 CDT Sulfamethoxazole 1 tab, PO, Active 800 MG / BID, 0 2015 [facility] Trimethoprim 160 Refill(s) MG Oral Tablet [Bactrim] Mupirocin 0.02 1 appl, TOP, Active MG/MG Topical BID, apply a 2015 [facility] Ointment thin film till resolved, 0 Refill(s) Folic Acid 1, PO, Daily, Active 0 Refill(s) 2015 [facility] Vitamin D3 See Active Instructions, 2015 [facility] 1 tab daily, 0 Refill(s) Losartan 12.5 mg, PO, Active Daily, 0 2015 [facility] Refill(s) tizanidine 2.5 mg, PO, Active Bedtime, 0 2015 [facility] Refill(s) levocetirizine 2 mg=, PO, Active QPM, 0 2015 [facility] Refill(s) enoxaparin 80 70 mg, SUB-Q, Active mg/0.8 mL [id number], X 30 2015 [facility] subcutaneous day, # 30 ea, solution 0 Refill(s) Levemir 5 unit, 0.05 No Longer mL, Route: Active 2015 [facility] SUB-Q, Drug form: INJ, Bedtime, Dosing Weight 74.091, kg, Start date: 04/17/16 21:00:00 CDT, Duration: 30 day, Stop date: 05/16/16 21:00:00 CSTNotes: Same as Levemir Do not hold insulin without contacting prescriber WASTE: F/P - Black; E - Municipal Trash Bin "single patient use only" Lovenox 70 mg, 0.7 mL, No Longer Route: SUB-Q, Active 2015 [facility] Drug form: INJ, [id number], Dosing Weight 74.091, kg, For CrCL Notes: Nurse to ensure documentation of patient education per anticoagulatio n policy. (Same as: Lovenox) Warfarin Sodium 2.5 mg=1 tab, No Longer 2.5 MG Oral Tablet PO, Q-, 0 Active 2015 [facility] [Coumadin] Refill(s) Warfarin Sodium 1 1 mg=1 tab, No Longer MG Oral Tablet PO, Active 2015 [facility] [Coumadin] [id number], 0 Refill(s) Docusate 100 mg, 1 cap, No Longer Route: PO, Active 2015 [facility] Drug form: CAP, BID, Dosing Weight 74.091, kg, Start date: 04/17/16 17:00:00 CDT, Duration: 30 day, Stop date: 05/17/16 9:00:00 CSTNotes: (Same as: Colace) (Do Not Crush) Insulin, Aspart, 10 unit, 0.1 No Longer Human mL, Route: Active 2015 [facility] SUB-Q, Drug form: SOLN, TID-Before Meals, Dosing Weight 74.091, kg, PRN Blood Glucose Results, Start date: 04/17/16 16:06:00 CDT, Duration: 30 day, Stop date: 05/17/16 16:05:00 CSTNotes: Roll in palms of hands gently; Do not shake vigorously. (Same as: NovoLOG) "single patient use only" WASTE: F/P - Black; E - [employer] | Anywhere Trash Bin Stable for 28 days at room temperature. Expires in days from Date Dextrose 50% 25 gm, 50 mL, No Longer Syringe Route: IVP, Active 2015 [facility] Drug Form: INJ, Dosing Weight 74.091, kg, PRN, PRN Blood Glucose Results, Start date: 04/17/16 16:06:00 CDT, Duration: 30 day, Stop date: 05/17/16 15:05:00 ORTHOTIST PROSTHETIST Glucagon 1 mg, Route: No Longer IM, Drug form: Active 2015 [facility] PDR/INJ, PRN, Dosing Weight 74.091, kg, PRN Blood Glucose Results, Start date: 04/17/16 16:06:00 CDT, Duration: 30 day, Stop date: 05/17/16 15:05:00 ORTHOTIST PROSTHETIST Ondansetron 4 mg, 2 mL, No Longer Route: IVP, Active 2015 [facility] Drug form: INJ, Q6H, Dosing Weight 74.091, kg, PRN Nausea & Vomiting, Start date: 04/17/16 16:00:00 CDT, Duration: 30 day, Stop date: 05/17/16 15:59:00 CSTNotes: (Same as: Zofran) MEDICATION WASTE Product Size: 4 mg Product Wasted: ___ mg Acetaminophen 650 mg, 2 tab, No Longer Route: PO, Active 2015 [facility] Drug form: TAB, Q4H, Dosing Weight 74.091, kg, PRN Pain 1-3/Temp > 100.4 F, Start date: 04/17/16 16:00:00 CDT, Duration: 30 day, Stop date: 05/17/16 15:59:00 CSTNotes: Do not exceed 4 gm/day. (Same as: Tylenol) Enoxaparin 70 mg, 0.7 mL, No Longer Route: SUB-Q, Active 2015 [facility] Drug form: INJ, Daily, Dosing Weight 72.727, kg, Start date: 12/14/15 3:00:00 CDT, Duration: 30 day, Stop date: 01/12/16 3:00:00 CDTNotes: Nurse to ensure documentation of patient education per anticoagulatio n policy. (Same as: Lovenox) Protonix 40 mg, 1 tab, Inactive Route: PO, 2015 [facility] Drug form: ECTAB, Daily, Dosing Weight 72.727, kg, Start date: 12/13/15 9:00:00 CDT, Duration: 30 day, Stop date: 01/11/16 9:00:00 CDTNotes: Tablet should not be chewed or crushed. (Same as: Protonix) apixaban 5 MG Oral 5 mg=1 tab, Active Tablet [Eliquis] PO, BID, 2 2015 [facility] pills po bid for first 7 days then 1 pill po bid, # 70 tab, 0 Refill(s) Vitamin D3 5000 5,000 Active intl units oral IntlUnit=1 2015 [facility] tablet tab, PO, Daily, 0 Refill(s) multivitamin with 0 Refill(s) Active minerals 2015 [facility] MaxiVision Lutein 10 mg, PO, Active Formula Daily, 0 2015 [facility] Refill(s) Osteo Bi-Flex 0 Refill(s) Active 2015 [facility] Amlodipine 2.5 mg, PO, Active Daily, 0 2015 [facility] Refill(s) Osteo Bi-Flex QAM, 0 Active Triple Strength Refill(s) 2015 [facility] Alendronate 70 mg, PO, Active QSun, 0 2015 [facility] Refill(s) gabapentin 300 mg, PO, Active TID, 0 2015 [facility] Refill(s) Diltiazem 180 mg, PO, Active Hydrochloride ER Daily, 0 2015 [facility] Refill(s) Prilosec 20 mg, PO, Active Daily, 0 2015 [facility] Refill(s) Hydrochlorothiazid 1 tab, PO, Active e 12.5 MG / Daily, 2 hours 2015 [facility] Losartan Potassium after 100 MG Oral Tablet breakfast, 0 Refill(s) Fish Oil 1,200 mg, PO, Active with lunch, 0 2015 [facility] Refill(s) pioglitazone 15 mg, PO, Active Daily, 0 2015 [facility] Refill(s) Sertraline 50 mg, PO, Active Daily, at 2015 [facility] bedtime, 0 Refill(s) Enoxaparin 70 mg, 0.7 mL, No Longer Route: SUB-Q, Active 2015 [facility] Drug form: INJ, [id number], Dosing Weight 72.727, kg, Start date: 12/12/15 18:00:00 CDT, Duration: 30 day, Stop date: 01/11/16 15:00:00 CDTNotes: Nurse to ensure documentation of patient education per anticoagulatio n policy. (Same as: Lovenox) Insulin, Aspart, 4 unit, 0.04 No Longer Human mL, Route: Active 2015 [facility] SUB-Q, Drug form: SOLN, TID-Before Meals, Dosing Weight 72.636, kg, PRN Blood Glucose Results, Start date: 12/12/15 17:58:00 CDT, Duration: 30 day, Stop date: 01/11/16 17:57:00 CDTNotes: Roll in palms of hands gently; Do not shake vigorously. (Same as: NovoLOG) "single patient use only" WASTE: F/P - Black; E - Municipal Trash Bin Stable for 28 days at room temperature. Expires in days from Date Dextrose 50% 12.5 gm, 25 No Longer Syringe mL, Route: Active 2015 [facility] IVP, Drug Form: INJ, Dosing Weight 72.636, kg, PRN, PRN Blood Glucose Results, Start date: 12/12/15 17:58:00 CDT, Duration: 30 day, Stop date: 01/11/16 17:57:00 CDT Glucagon 1 mg, Route: No Longer IM, Drug form: Active 2015 [facility] PDR/INJ, PRN, Dosing Weight 72.636, kg, PRN Blood Glucose Results, Start date: 12/12/15 17:58:00 CDT, Duration: 30 day, Stop date: 01/11/16 17:57:00 CDT Zofran 4 mg, 2 mL, No Longer Route: IVP, Active 2015 [facility] Drug form: INJ, Q6H, Dosing Weight 72.727, kg, PRN Nausea, Start date: 12/12/15 17:56:00 CDT, Duration: 30 day, Stop date: 01/11/16 17:55:00 CDTNotes: (Same as: Zofran) MEDICATION WASTE Product Size: 4 mg Product Wasted: ___ mg Albuterol 0.833 3 ml, Route: No Longer MG/ML / NEB, Drug Active 2015 [facility] Ipratropium Form: SOLN, Marlin 0.167 Dosing Weight MG/ML Inhalant 72.727, kg, Solution [DuoNeb] RQID, PRN Shortness of breath, Start date: 12/12/15 17:56:00 CDT, Duration: 30 day, Stop date: 01/11/16 17:55:00 CDTNotes: (Same as: Duoneb) Acetaminophen 325 1 tab, Route: No Longer MG / Hydrocodone PO, Drug Form: Active 2015 [facility] Bitartrate 7.5 MG TAB, Dosing Oral Tablet [Thompson Weight 72.727, 7.5/325] kg, Q4H, PRN Pain Score 4-6, Start date: 12/12/15 17:56:00 CDT, Duration: 30 day, Stop date: 01/11/16 17:55:00 CDTNotes: Same as Thompson 325-7.5mg Do not exceed 4gm/day of acetaminophen. Acetaminophen 650 mg, 2 tab, No Longer Route: PO, Active 2015 [facility] Drug form: TAB, Q6H, Dosing Weight 72.727, kg, PRN Pain 1-3/Temp > 100.4 F, Start date: 12/12/15 17:56:00 CDT, Duration: 30 day, Stop date: 01/11/16 17:55:00 CDTNotes: Do not exceed 4 gm/day. (Same as: Tylenol) Dulcolax Laxative 10 mg, 1 supp, No Longer Route: SC, Active 2015 [facility] Drug form: SUPP, ONCE, Dosing Weight 72.727, kg, PRN Constipation, Start date: 12/12/15 17:56:00 CDTNotes: (Same As: Dulcolax, Bisco-Lax) Hydralazine 10 mg, 0.5 mL, No Longer Route: IVP, Active 2015 [facility] Drug form: INJ, Q4H, Dosing Weight 72.727, kg, PRN Hypertension, Start date: 12/12/15 17:56:00 CDT, Duration: 30 day, Stop date: 01/11/16 17:55:00 CDTNotes: (Same as: Apresoline) Push over 5 minutes Docusate Sodium 100 mg, 1 cap, No Longer 100 MG Oral Route: PO, Active 2015 [facility] Capsule [Colace] Drug form: CAP, BID, Dosing Weight 72.727, kg, PRN Constipation, Start date: 12/12/15 17:56:00 CDT, Duration: 30 day, Stop date: 01/11/16 17:55:00 CDTNotes: (Same as: Colace) (Do Not Crush) Lovenox 70 mg, Route: Inactive SUB-Q, Drug 2015 [facility] form: INJ, ONCE, Dosing Weight 72.727, kg, Priority: STAT, Start date: 12/12/15 14:37:00 CDT, Stop date: 12/12/15 14:37:00 CDT Saline Flush 0.9% 10 mL, Route: No Longer IVP, Drug Active 2015 [facility] Form: INJ, Dosing Weight 72.727, kg, PRN, PRN Line Flush, Start date: 12/12/15 13:59:00 CDT, Duration: 30 day, Stop date: 01/11/16 13:58:00 CDTNotes: (Same as: BD Posiflush) Enoxaparin 72 mg, Route: Inactive SUB-Q, ONCE, 2015 [facility] Dosing Weight 72.727, kg, Priority: STAT, Start date: 12/12/15 13:59:00 CDT, Stop date: 12/12/15 13:59:00 CDT Allergies, Adverse Reactions, Alerts Substance Category Reaction Severity Reaction Status Date Comments Source type Reported codeine Assertion Drug Active allergy [facility] Immunizations Immunization Date Site Status Last Comments Source Given Updated influenza virus Right completed Bindu vaccine, 6 deltoid [facility] inactivated OPID [facility] Results Order Name Results Value Reference Date Interpretation Comments Source Range CHEM PANEL A/G Ratio 1.0 0.7 - 1.6 01/26 [facility] CHEM PANEL Globulin 3.8 g/dL 2.7 - 4.2 01/26 [facility] CHEM PANEL AGAP 7.0 meq/L 10.0 - 08/ 20.0 /2017 [facility] CHEM PANEL B/C Ratio 14 6 - 25 01/26 [facility] CHEM PANEL eGFR 34 01/26 Result Comment: The eGFR is calculated using the CKD-EPI formula. In most young, healthy individuals the eGFR will be >90 mL/ min/1.73m2. The eGFR declines with age. An eGFR of 60-89 may be normal in mL/min/1.7 /2016 some populations, particularly the elderly, for whom the CKD-EPI formula has not been extensively validated. Use of the eGFR is not recommended in the following populations: [place] [address] Individuals with unstable creatinine concentrations, including patients and those with serious co-morbid conditions. Patients with extremes in muscle mass or diet. The data above are obtained from the National Kidney Disease Education Program (NKDEP) which additionally recommends that when the eGFR is used in patients with extremes of body mass index for purposes of drug dosing, the eGFR should be multiplied by the estimated BMI. CHEM PANEL Bili Total 0.3 mg/dL 0.2 - 1.3 01/26 [facility] CHEM PANEL Alk Phos 58 unit/L 39 - 136 01/26 [facility] CHEM PANEL AST 15 unit/L 0 - 37 01/26 [facility] CHEM PANEL ALT 20 unit/L 0 - 65 01/26 [facility] CHEM PANEL BUN 26 mg/dL 7 - 22 01/26 [facility] CHEM PANEL Glucose Lvl 106 mg/dL 70 - 99 01/26 [facility] CHEM PANEL CO2 29 meq/L 24 - 32 01/26 [facility] CHEM PANEL Chloride Lvl 104 meq/L 95 - 109 01/26 [facility] CHEM PANEL Albumin Lvl 3.8 g/dL 3.5 - 5.0 01/26 [facility] CHEM PANEL Total 7.6 g/dL 6.4 - 8.4 01/26 Protein [facility] CHEM PANEL Calcium Lvl 8.7 mg/dL 8.5 - 10.5 01/26 [facility] CHEM PANEL Sodium Lvl 136 meq/L 135 - 145 01/26 [facility] CHEM PANEL Creatinine 1.85 mg/dL 0.50 - 01/26 Lvl 1.40 [facility] CHEM PANEL Potassium 4.0 meq/L 3.5 - 5.1 01/26 Lvl [facility] HEMATOLOGY PTT 34.6 s 22.9 - 08 MH 35.8 /2017 [facility] HEMATOLOGY INR 1.20 0.85 - 08 MH 1.17 /2016 [facility] HEMATOLOGY PT 15.5 s 12.0 - 08/07 MH 14.7 /2016 [facility] HEMATOLOGY MCHC 33.2 g/dL 32.0 - 01/26 MH 36.0 /2016 [facility] HEMATOLOGY RDW 14.4 % 11.5 - 01/26 MH 14. [facility] HEMATOLOGY MPV 9.7 fL 7.4 - 10.4 01/26 [facility] HEMATOLOGY Platelet 144 K/CMM 133 - 450 01/26 [facility] HEMATOLOGY Hgb 13.4 g/dL 14.0 - 01/26 MH 18.0 /2016 [facility] HEMATOLOGY RBC 4.13 M/CMM 4.70 - 01/26 MH 6.10 /2016 [facility] HEMATOLOGY MCV 97.7 fL 80.0 - 01/26 MH 94.0 /2016 [facility] HEMATOLOGY Hct 40.4 % 42.0 - 01/26 54.0 [facility] HEMATOLOGY MCH 32.5 pg 27.0 - 01/26 31.0 /2016 [facility] HEMATOLOGY WBC 8.5 K/CMM 3.7 - 10.4 01/26 [facility] HEMATOLOGY Eosinophils 0.1 K/CMM 0.0 - 0.5 08/ MH # /2016 [facility] HEMATOLOGY Basophils # 0.0 K/CMM 0.0 - 0.2 01/26 [facility] HEMATOLOGY Segs-Bands # 6.4 K/CMM 1.5 - 8.1 01/26 [facility] Lymphocytes 1.0 K/CMM 1.0 - 5.5 01/26 MH # /2016 [facility] Monocytes 11.4 % 2.0 - 12.0 01/26 [facility] Monocytes # 1.0 K/CMM 0.0 - 0.8 01/26 [facility] HEMATOLOGY Eosinophils 1.3 % 0.0 - 4.0 01/26 [facility] HEMATOLOGY Basophils 0.4 % 0.0 - 1.0 01/26 [facility] HEMATOLOGY Segs 75.0 % 45.0 - 01/26 75.0 [facility] HEMATOLOGY Lymphocytes 11.9 % 20.0 - 01/26 40.0 [facility] Bladder US Bladder US Patient Name: ONEAL ALFARO HUNG 01/23 - OPID - [facility] : 1935; Age: 81 years y/o Male MR: [id number] Read by: Wade Li MD Dictated Date/time: 01/23/17 14:11 Electronically Signed by: Wade Li MD 01/23/17 14:14 FINAL REPORT Study: Bladder US 01/23/2017 1:22 PM CDT Ordering Physician: Lauren Keller MD Clinical Indication: Chronic kidney disease. Diabetes. No signs or symptoms provided. Comparison: None. Technique: Grayscale, color and Doppler sonographic evaluation of the bladder was performed with standard technique. FINDINGS: Under distended and appropriately thick walled. Both ureteral jets are identified. Prevoid volume: 44 cc. Post void volume: 6 cc. Other: None. IMPRESSION: 1. Under distended thick-walled urinary bladder. 2. Mild postvoid residual. SL: [id number] CHEM PANEL POC 1.9 mg/dL 0.5 - 1.4 01/05 Creatinine /2016 [facility] CHEM PANEL eGFR 33 01/05 Result Comment: The eGFR is calculated using the CKD-EPI formula. In most young, healthy individuals the eGFR will be >90 mL/ min/1.73m2. The eGFR declines with age. An eGFR of 60-89 may be normal in mL/min/1.7 some populations, particularly the elderly, for whom the CKD-EPI formula has not been extensively validated. Use of the eGFR is not recommended in the following populations: [address] Individuals with unstable creatinine concentrations, including patients and those with serious co-morbid conditions. Patients with extremes in muscle mass or diet. The data above are obtained from the National Kidney Disease Education Program (NKDEP) which additionally recommends that when the eGFR is used in patients with extremes of body mass index for purposes of drug dosing, the eGFR should be multiplied by the estimated BMI. HEMATOLOGY PTT 32.4 s 22.9 - 01/05 MH 35.8 /2017 [facility] HEMATOLOGY INR 1.09 0.85 - 01/05 MH 1. [facility] HEMATOLOGY PT 14.3 s 12.0 - 01/05 MH 14.7 [facility] HEMATOLOGY Platelet 138 K/CMM 133 - 450 01/05 [facility] Vena cava Vena cava Patient Name: ONEAL ALFARO HUNG 01/05 - filter filter /2016 - [facility] placement placement VR : 1935; Age: 81 years y/o Male VR MR: [id number] Read by: Tan Simmons MD Dictated Date/time: 01/05/17 14:43 Electronically Signed by: Tan Simmons MD 01/05/17 14:48 FINAL REPORT Study: Vena cava filter placement VR 01/05/2017 7:56 AM CDT Ordering Physician: Meena Malcolm MD Clinical Indication: - Failure of anticoagulation, deep venous thrombosis. Comparison: None Fluoroscopy time 0.8 minutes. Timeout performed prior to procedure. Procedure performed utilizing maximal sterile barrier technique. Procedure was performed utilizing local anesthesia only. Right internal jugular vein was shown be patent, compressible suitable for access. Hard copy sonographic image of venous access was recorded in PACS. Utilizing Seldinger technique a 10-Tajik sheath was advanced centrally into the SVC, through the right atrium and into the IVC, to the iliac vein confluence. IVC venogram was performed, with use of only 10 mL of Nonionic contrast. IVC venogram demonstrates normal caval caliber, with bilateral renal vein and left iliac vein inflow. No caval thrombus seen. An Vena Tech IVC filter was then deployed in the infrarenal IVC, just below the level of the renal veins. Postdeployment cavogram was not performed, secondary to the patient's renal insufficiency. However, fluoroscopically the filter position appeared appropriate and complete opening was demonstrated. The vascular sheath was removed and hemostasis achieved with manual compression. Procedure well-tolerated clinically. 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 Rule out osteomyelitis. Comparison: None RIGHT ANKLE, 3 views: 1. No acute fracture, dislocation, or suspicious focal osseous lesion. No focal osseous destruction is seen to suggest osteomyelitis with certainty. 2. Mild osteoarthritis. 3. Mild diffuse soft tissue thickening associated with small vessel calcifications consistent with peripheral vascular disease. 4. More sensitive evaluation for osteomyelitis may be obtained with a 3 phase bone scan or MR if clinically indicated and no contraindications are present. SL: [id number] Retroperit Retroperiton RETROPERITONEAL COMPLETE ULTRASOUND 06/02 OPID [email or web address] [email or web address] [facility] Complete US US HISTORY: N18.3 Chronic kidney disease, stage 3 (moderate); Read by : Benigno Lake MD Dictated Date/time: 06/02/16 11:18 Electronically Signed by: Benigno Lake MD 06/02/16 11:22 FINAL REPORT COMPARISON: None available. TECHNIQUE: Multiple longitudinal and transverse real time sonographic images of the kidneys and urinary bladder are obtained. FINDINGS: KIDNEYS: Several small and moderate-sized right renal cysts which are either simple or only minimally complex with single thin septation are grossly unchanged from the prior study. No solid right renal mass is seen. Single moderate 4.5 cm simple cyst in the left kidney is unchanged. Kidneys are normal in size and shape with preservation of corticomedullary differentiation. No hydronephrosis is seen. The right kidney measures 10.4 x 6.9 x 5.0 cm. The right renal cortex measures 1.8 cm in thickness. The left kidney measures 11.3 x 5.0 x 4.2 cm. The left renal cortex measures 1.8 cm in thickness. BLADDER: The bladder is well-distended and unremarkable. IMPRESSION: 1. No change since the prior exam. 2. Multiple right renal cysts and single left renal cyst which are all either simple or only minimally complex. No follow-up specifically for these cysts is recommended. SL: [id number] Bone scan Bone scan 3 Patient Name: ONEAL PERSAUD 05/12 - 3 phase VT phase VT - [facility] : 1935; Age: 80 years y/o Male MR: [id number] Read by: Jacob Wilder MD Dictated Date/time: 05/12/16 17:42 Electronically Signed by: Jacob Wilder MD 05/12/16 17:45 FINAL REPORT Study: Bone scan 3 phase NM 05/12/2016 11:46 AM ORTHOTIST PROSTHETIST Ordering Physician: Odessa Luke MD Clinical Indication: Type 2 DM with other skin ulcer,; right foot ulcer for about 4 months on the lateral aspect Comparison: Right tibia fibula series 04/03/2016 TECHNIQUE: Three phase bone scan of the bilateral feet is performed using 25.2 mCi of technetium 99m-MDP. FINDINGS: The radionuclide angiographic images show minimally diffusely increased radiotracer flow in the left lower extremity. The blood pool images show minimally diffusely increased radiotracer activity in the left lower extremity. The delayed images show no abnormal areas of uptake. IMPRESSION: No scintigraphic evidence of osteomyelitis. Possible cellulitis in the left lower extremity. SL: [id number] HEMATOLOGY D-Dimer 0.24 ug/mL 04/18 [facility] CHEM PANEL eGFR 35 04/17 Result Comment: The eGFR is calculated using the CKD-EPI formula. In most young, healthy individuals the eGFR will be >90 mL/ min/1.73m2. The eGFR declines with age. An eGFR of 60-89 may be normal in mL/min/1. some populations, particularly the elderly, for whom the CKD-EPI formula has not been extensively validated. Use of the eGFR is not recommended in the following populations: [address] Individuals with unstable creatinine concentrations, including patients and those with serious co-morbid conditions. Patients with extremes in muscle mass or diet. The data above are obtained from the National Kidney Disease Education Program (NKDEP) which additionally recommends that when the eGFR is used in patients with extremes of body mass index for purposes of drug dosing, the eGFR should be multiplied by the estimated BMI. CHEM PANEL Chloride Lvl 99 meq/L 95 - 109 04/17 [facility] CHEM PANEL CO2 27 meq/L 24 - 32 04/17 [facility] CHEM PANEL Calcium Lvl 8.8 mg/dL 8.5 - 10.5 04/17 [facility] CHEM PANEL Potassium 3.5 meq/L 3.5 - 5.1 04/17 Lv [facility] CHEM PANEL Creatinine 1.80 mg/dL 0.50 - 04/17 Lvl 1.40 [facility] CHEM PANEL BUN 24 mg/dL 7 - 22 04/17 [facility] CHEM PANEL Glucose Lvl 273 mg/dL 70 - 99 04/17 [facility] CHEM PANEL Sodium Lvl 136 meq/L 135 - 145 04/17 [facility] CHEM PANEL AGAP 13.5 meq/L 10.0 - 04/17 MH 20.0 [facility] HEMATOLOGY MPV 10.3 fL 7.4 - 10.4 04/17 [facility] HEMATOLOGY Platelet 158 K/CMM 133 - 450 04/17 [facility] HEMATOLOGY RBC 4.62 M/CMM 4.70 - 04/17 MH 6.10 [facility] HEMATOLOGY WBC 6.1 K/CMM 3.7 - 10.4 04/17 [facility] HEMATOLOGY Hgb 14.7 g/dL 14.0 - 04/17 MH 18.0 [facility] HEMATOLOGY MCV 93.3 fL 80.0 - 04/17 MH 94.0 /2015 [facility] HEMATOLOGY MCHC 34.1 g/dL 32.0 - 04/17 MH 36.0 [facility] HEMATOLOGY MCH 31.8 pg 27.0 - 04/17 31.0 [facility] HEMATOLOGY RDW 13.0 % 11.5 - 04/17 14. [facility] HEMATOLOGY Hct 43.1 % 42.0 - 04/17 54.0 /2015 [facility] HEMATOLOGY INR 2.49 0.85 - 04/17 MH 1.17 [facility] HEMATOLOGY PTT 43.1 s 22.9 - 04/17 35.8 /2015 [facility] HEMATOLOGY PT 27.3 s 12.0 - 04/17 14.7 /2015 [facility] HEMATOLOGY Basophils # 0.0 K/CMM 0.0 - 0.2 04/17 [facility] HEMATOLOGY Eosinophils 2.3 % 0.0 - 4.0 04/17 [facility] HEMATOLOGY Basophils 0.6 % 0.0 - 1.0 04/17 [facility] HEMATOLOGY Lymphocytes 1.3 K/CMM 1.0 - 5.5 04/17 # /2015 [facility] HEMATOLOGY Monocytes # 0.6 K/CMM 0.0 - 0.8 04/17 [facility] HEMATOLOGY Eosinophils 0.1 K/CMM 0.0 - 0.5 04/17 MH # /2015 [facility] HEMATOLOGY Monocytes 9.7 % 2.0 - 12.0 04/17 [facility] HEMATOLOGY Segs-Bands # 4.0 K/CMM 1.5 - 8.1 04/17 [facility] HEMATOLOGY Segs 66.6 % 45.0 - 04/17 75.0 /2015 [facility] HEMATOLOGY Lymphocytes 20.8 % 20.0 - 04/17 40.0 [facility] Tibia Tibia fibula Patient Name: ONEAL PERSAUD 04/03 - OPID fibula series DX /2015 - [facility] series DX : 1935; Age: 80 years y/o Male MR: [id number] Read by: Leobardo Mcdonald MD Dictated Date/time: 04/03/16 16:52 Electronically Signed by: Leobardo Mcdonald MD 04/03/16 16:56 FINAL REPORT * RIGHT TIBIA -- FIBULA SERIES, 2 views History: Injury, trauma to right lower leg region -right lower extremity. Technique: Frontal and lateral radiographs of the right tibia and fibula were obtained. FINDINGS: There is no evidence of fracture, dislocation, or acute change. There are no destructive lesions or other osseous abnormalities. There are moderate vascular calcifications. IMPRESSION: 1. Negative right tibia -- fibula series. 2. Vascular calcifications. SL: [id number] Retroperit Retroperiton EXAM: RENAL/RETROPERITONEAL ULTRASOUND 01/21 - OPID [place] Complete /2015 - [place] Complete US DATE: 01/22/2016 10:09 AM CDT . US Read by: Christo Johnson MD Dictated Date/time: 01/22/16 10:47 CLINICAL INDICATION: Acute embolism . Electronically Signed by: Christo Johnson MD 01/22/16 10:49 FINAL REPORT ADDITIONAL DATA: None COMPARISON: None TECHNIQUE: Grayscale and Doppler imaging of the kidneys was obtained. FINDINGS: The right kidney measures 10.4 x 5.7 x 5.5 cm. The left kidney measures 10.1 x 5.5 x 4.3 cm. There are numerous Bosniak 1 right renal cysts measuring up to 3.6 cm. Left kidney is somewhat lobular and al so contains a Bosniak 1 cyst measuring up to 4.0 cm. There is no hydronephrosis or solid mass lesion. Urinary bladder is unremarkable. Visualized portions of the aorta and IVC are unremarkable. IMPRESSION: Bilateral renal cysts. HEMATOLOGY Protein C 152 % 72 - 147 12/12 Func [facility] HEMATOLOGY Hex Phos N Negative Negative 12/12 [facility] (12/13/15 8:58 AM) HEMATOLOGY dRVV Ratio 1.16 <=1.20 12/12 [facility] HEMATOLOGY Lup Interp Negative 12/12 for lupus /2015 [facility] anticoagul ant by DRVV screen and hexagonal phospholip idneutrali zation test. If there is a strong clinical suspicion of lupus anticoagul ant,additi onal testing, to include repeat studies at a clinically appropriat e interval andanticar diolipin antibody assays, is recommende d.Interpre tation performed at [facility]. HEMATOLOGY Protein S 75 % 54 - 137 12/12 Func [facility] HEMATOLOGY F5 Leiden FACTOR V 12/12 Intrp LEIDEN: [facility] NegativeIN TERPRETATI ON:Molecul ar analysis for the Factor V Leiden, [id number] mutation was negative.O ther causes of activated protein C resistance and hereditary forms of venousthro mbosis are not ruled out. Final diagnosis requires correlatio n withclinic al history and other pertinent laboratory findings.W here appropriat e, medical consultati on and/or genetic counseling should beoffered to inform and explain the risk implicatio ns and genetic implicatio nsof these test results. SAY LIMITATION S:The assay uses the FDA-cleare d Grisel Factor V Leiden IVD(Poymer ase chain reaction/F RET detection) kit, Grisel [employer] Pocket[employer] LC Instrument and the [place] [employer] 1.2 Instrument . A 222-bp fragment of Factor V gene (FV) containing the Factor V Leiden sequence is amplified in the assay. The assay is designed to detect the G [id number] mutation only. Other causes of activated protein C resistance and hereditary forms of venous thrombosis are not ruled out. However, melting curve analysis may implicate the presence of possible rare mutations at positions 1689, 1692 and 1696. (Further testing will be recommende d in the report). A minimum detection level is 202 copies of Factor V Leiden per reaction. The level of agreement between the Factor V Leiden Kit and sequence analysis was 99.4%. The test result must be interprete d along with the patient's clinical history and relevant laboratory data. This assay has been validated by [facility] . HEMATOLOGY F5 Leiden Negative 12/12 PCR [facility] (12/13/15 8:58 AM) HEMATOLOGY F2 Mut FACTOR II 12/12 MH Interp PT: [facility] NegativeIN TERPRETATI ON:Molecul ar analysis for the Factor II (Prothromb in) [id number] mutation wasnegativ e. Other causes of elevated prothrombi n levels and hereditary formsof venous thrombosis are not ruled out. Final diagnosis requires correlatio nwith clinical history and other pertinent laboratory findings.W here appropriat e, medical consultati on and genetic counseling should beoffered to inform and explain the risk implicatio ns and genetic implicatio nsof these test results. SAY LIMITATION S:The assay uses the FDA-cleare d Grisel Factor II (Prothromb in) [id number] IVD(Polyme rase chain reaction/F RET detection) kit, In[employer]ascale LC Instrument and the [place] [employer] 1.2 Instrument . A 165-bp fragment of Factor IIgene(FII ) containing the Factor II [id number] sequence is amplified in theassay. The assay is designed to detect the [id number] mutation only. Othercause s of elevated prothrombi n levels and hereditary forms of venousthro mbosis are not ruled out. However, the melting curve analysis mayimplica te the presence of a possible rare mutation at position 93393 (Furtherte sting will be recommende d in the report). A minimum detection level is 198copies of Factor II per reaction. The level of agreement between the FactorII(P rothrombin ) [id number] Kit and sequence analysis was 98.9%. The test resultmust be interprete d along with the patient's clinical history and revelant laboratory data. This assay has been validated by [facility] . HEMATOLOGY F2 Mutation Negative 12/12 PCR /2015 [facility] (12/13/15 8:58 AM) HEMATOLOGY AT [facility] 94 % 77 - 140 12/12 [facility] IMMUNOLOGY Cardiolipin null <=19.9 GPL 12/12 IgG [facility] IMMUNOLOGY Cardiolipin null <=19.9 APL 12/12 IgA [facility] IMMUNOLOGY Cardiolipin 0.5 <=19.9 MPL 12/12 IgM MPL-U/mL /2015 [facility] IMMUNOLOGY Beta2-Glycop 0.3 <=19.9 12/12 rotein IgM unit/mL unit/mL /2015 [facility] IMMUNOLOGY Beta2-Glycop null <=19.9 12/12 rotein IgA unit/mL /2015 [facility] IMMUNOLOGY Beta2-Glycop null <=19.9 12/12 rotein IgG unit/mL /2015 [facility] IMMUNOLOGY WADE Negative 1 Negative 12/12 Result Comment: [facility] (12/13/15 8:58 AM) Marked Cytoplamic staining present. IMMUNOLOGY Homocyst Tot 16.7 3.7 - 13.9 12/12 umol/L /2015 [facility] SPECIAL PSA 0.68 ng/mL 0.00 - 12/12 CHEMISTRY 4.00 [facility] TUMOR CEA 6.1 ng/mL 0.0 - 3.0 12/12 MARKERS [facility] CHEM PANEL Albumin Lvl 4.0 g/dL 3.5 - 5.0 12/12 [facility] CHEM PANEL ALT 21 unit/L 0 - 65 12/12 [facility] CHEM PANEL Calcium Lvl 9.1 mg/dL 8.5 - 10.5 12/12 [facility] CHEM PANEL Total 7.4 g/dL 6.4 - 8.4 12/12 [facility] CHEM PANEL eGFR 38 12/12 Result Comment: The eGFR is calculated using the CKD-EPI formula. In most young, healthy individuals the eGFR will be >90 mL/ min/1.73m2. The eGFR declines with age. An eGFR of 60-89 may be normal in mL/min/1. some populations, particularly the elderly, for whom the CKD-EPI formula has not been extensively validated. Use of the eGFR is not recommended in the following populations: [facility] 3m2 Individuals with unstable creatinine concentrations, including patients and those with serious co-morbid conditions. Patients with extremes in muscle mass or diet. The data above are obtained from the National Kidney Disease Education Program (NKDEP) which additionally recommends that when the eGFR is used in patients with extremes of body mass index for purposes of drug dosing, the eGFR should be multiplied by the estimated BMI. CHEM PANEL Bili Total 0.4 mg/dL 0.2 - 1.3 12/12 [facility] CHEM PANEL AST 16 unit/L 0 - 37 12/12 [facility] CHEM PANEL Alk Phos 65 unit/L 39 - 136 12/12 [facility] CHEM PANEL Glucose Lvl 176 mg/dL 70 - 99 12/12 [facility] CHEM PANEL BUN 26 mg/dL 7 - 22 12/12 [facility] CHEM PANEL CO2 28 meq/L 24 - 32 12/12 [facility] CHEM PANEL Creatinine 1.70 mg/dL 0.50 - 12/12 MH Lvl 1.40 [facility] CHEM PANEL Sodium Lvl 135 meq/L 135 - 145 12/12 [facility] CHEM PANEL Chloride Lvl 101 meq/L 95 - 109 12/12 [facility] CHEM PANEL Potassium 3.9 meq/L 3.5 - 5.1 12/12 Lvl /2015 [facility] CHEM PANEL A/G Ratio 1.2 0.7 - 1.6 12/12 [facility] CHEM PANEL B/C Ratio 15 6 - 25 12/12 [facility] CHEM PANEL Globulin 3.4 g/dL 2.0 - 4.0 12/12 [facility] CHEM PANEL AGAP 9.9 meq/L 10.0 - 12/12 MH 20.0 [facility] HEMATOLOGY Basophils 1.1 % 0.0 - 1.0 12/12 [facility] HEMATOLOGY Eosinophils 2.4 % 0.0 - 4.0 12/12 [facility] HEMATOLOGY Lymphocytes 23.1 % 20.0 - 12/12 MH 40.0 [facility] HEMATOLOGY Monocytes 11.3 % 2.0 - 12.0 12/12 [facility] HEMATOLOGY Segs 62.1 % 45.0 - 12/12 MH 75.0 [facility] HEMATOLOGY Eosinophils 0.1 K/CMM 0.0 - 0.5 12/12 MH # /2015 [facility] HEMATOLOGY Basophils # 0.1 K/CMM 0.0 - 0.2 12/12 [facility] HEMATOLOGY Lymphocytes 1.3 K/CMM 1.0 - 5.5 12/12 MH # /2015 [facility] HEMATOLOGY Monocytes # 0.6 K/CMM 0.0 - 0.8 12/12 [facility] HEMATOLOGY Segs-Bands # 3.5 K/CMM 1.5 - 8.1 12/12 [facility] HEMATOLOGY Platelet 144 K/CMM 133 - 450 12/12 [facility] HEMATOLOGY MPV 11.6 fL 7.4 - 10.4 12/12 [facility] HEMATOLOGY RBC 4.65 M/CMM 4.70 - 12/12 MH 6.10 [facility] HEMATOLOGY Hgb 15.2 g/dL 14.0 - 12/12 MH 18.0 [facility] WBC 5.7 K/CMM 3.7 - 10.4 12/12 [facility] HEMATOLOGY MCHC 34.1 g/dL 32.0 - 12/12 36.0 [facility] RDW 13.1 % 11.5 - 12/12 14. [facility] MCV 95.7 fL 80.0 - 12/12 94.0 [facility] MCH 32.6 pg 27.0 - 12/12 31.0 [facility] Hct 44.5 % 42.0 - 12/12 54.0 [facility] Protein S 75 % 54 - 137 12/11 Func [facility] Protein C 162 % 72 - 147 12/11 c [facility] HEMATOLOGY AT III Func 86 % 77 - 140 12/11 [facility] Cardiolipin null <=19.9 GPL 12/11 IgG [facility] Cardiolipin null <=19.9 APL 12/11 IgA [facility] Cardiolipin 0.4 <=19.9 MPL 12/11 IgM MPL-U/mL [facility] Beta2-Glycop 0.3 <=19.9 12/11 rotein IgM unit/mL unit/mL /2015 [facility] IMMUNOLOGY Beta2-Glycop null <=19.9 12/11 rotein IgG unit/mL /2015 [facility] IMMUNOLOGY Beta2-Glycop null <=19.9 12/11 rotein IgA unit/mL /2015 [facility] CHEM PANEL A/G Ratio 1.1 0.7 - 1.6 12/11 [facility] CHEM PANEL AGAP 7.9 meq/L 10.0 - 12/11 20.0 [facility] CHEM PANEL B/C Ratio 16 6 - 25 12/11 [facility] CHEM PANEL Globulin 3.6 g/dL 2.0 - 4.0 12/11 [facility] CHEM PANEL eGFR 36 12/11 Result Comment: The eGFR is calculated using the CKD-EPI formula. In most young, healthy individuals the eGFR will be >90 mL/ min/1.73m2. The eGFR declines with age. An eGFR of 60-89 may be normal in mL/min/1.7 some populations, particularly the elderly, for whom the CKD-EPI formula has not been extensively validated. Use of the eGFR is not recommended in the following populations: [place] [address] Individuals with unstable creatinine concentrations, including patients and those with serious co-morbid conditions. Patients with extremes in muscle mass or diet. The data above are obtained from the National Kidney Disease Education Program (NKDEP) which additionally recommends that when the eGFR is used in patients with extremes of body mass index for purposes of drug dosing, the eGFR should be multiplied by the estimated BMI. CHEM PANEL Alk Phos 82 unit/L 39 - 136 12/11 [facility] CHEM PANEL AST 13 unit/L 0 - 37 12/11 [facility] CHEM PANEL Bili Total 0.4 mg/dL 0.2 - 1.3 12/11 [facility] CHEM PANEL Total 7.6 g/dL 6.4 - 8.4 12/11 [facility] CHEM PANEL Albumin Lvl 4.0 g/dL 3.5 - 5.0 12/11 [facility] CHEM PANEL ALT 20 unit/L 0 - 65 12/11 [facility] CHEM PANEL CO2 30 meq/L 24 - 32 12/11 [facility] CHEM PANEL Calcium Lvl 8.5 mg/dL 8.5 - 10.5 12/11 [facility] CHEM PANEL Chloride Lvl 100 meq/L 95 - 109 12/11 [facility] CHEM PANEL Glucose Lvl 247 mg/dL 70 - 99 12/11 [facility] CHEM PANEL BUN 29 mg/dL 7 - 22 12/11 [facility] CHEM PANEL Sodium Lvl 134 meq/L 135 - 145 12/11 [facility] CHEM PANEL Potassium 3.9 meq/L 3.5 - 5.1 12/11 MH Lvl [facility] CHEM PANEL Creatinine 1.78 mg/dL 0.50 - 12/11 MH Lvl 1.40 [facility] HEMATOLOGY Segs-Bands # 3.4 K/CMM 1.5 - 8.1 12/11 [facility] HEMATOLOGY Basophils 1.2 % 0.0 - 1.0 12/11 [facility] HEMATOLOGY Eosinophils 1.9 % 0.0 - 4.0 12/11 [facility] HEMATOLOGY Lymphocytes 20.6 % 20.0 - 12/11 MH 40.0 /2015 [facility] HEMATOLOGY Monocytes 10.0 % 2.0 - 12.0 12/11 [facility] HEMATOLOGY Eosinophils 0.1 K/CMM 0.0 - 0.5 12/11 MH # /2016 [facility] HEMATOLOGY Basophils # 0.1 K/CMM 0.0 - 0.2 12/11 /2015 [facility] HEMATOLOGY Monocytes # 0.5 K/CMM 0.0 - 0.8 12/11 MH /2015 [facility] HEMATOLOGY Lymphocytes 1.1 K/CMM 1.0 - 5.5 12/11 MH # /2016 [facility] HEMATOLOGY Segs 66.3 % 45.0 - 12/11 MH 75.0 /2015 [facility] MCH 31.9 pg 27.0 - 12/11 MH 31.0 /2015 [facility] HEMATOLOGY RBC 4.46 M/CMM 4.70 - 12/11 MH 6.10 /2015 [facility] HEMATOLOGY Hgb 14.2 g/dL 14.0 - 12/11 MH 18.0 /2015 [facility] Hct 43.1 % 42.0 - 12/11 MH 54.0 /2015 [facility] MCV 96.6 fL 80.0 - 12/11 94.0 /2015 [facility] WBC 5.2 K/CMM 3.7 - 10.4 12/11 /2015 [facility] HEMATOLOGY RDW 13.1 % 11.5 - 12/11 MH 14.5 /2015 [facility] MCHC 33.0 g/dL 32.0 - 12/11 MH 36.0 /2015 [facility] HEMATOLOGY Platelet 157 K/CMM 133 - 450 12/11 MH /2015 [facility] MPV 10.2 fL 7.4 - 10.4 12/11 /2015 [facility] INR 1.14 0.85 - 12/11 1.17 /2015 [facility] HEMATOLOGY PT 14.9 s 12.0 - 12/11 14.7 /2015 [facility] HEMATOLOGY PTT 32.1 s 22.9 - 12/11 MH 35.8 /2015 [facility] Chest Chest 1view Chest 1view DX 12/12/2015 2:38 PM CDT 12/11 - 1view DX DX - [facility] Ordering Physician: Nikolas Christie MD Read by: Jacob Wilder MD Dictated Date/time: 12/12/15 15:09 CLINICAL HISTORY: Chest pain; positive for deep vein thrombosis, leg pain Electronically Signed by: Jacob Wilder MD 15:12 FINAL REPORT TECHNIQUE: AP view of the chest was obtained. COMPARISON: Earlier same day FINDINGS: Lungs are clear. Pulmonary parenchymal vascularity is symmetric. Small metallic foreign body is again noted shadowing over the right upper hemithorax. No pleural effusion or radiographically detectable pneumothorax is present. Cardiomediastinal silhouette is unchanged. Bones are unchanged. IMPRESSION: No acute abnormality of the chest. SL: [id number] Spine Spine Patient Name: ONEAL PERSAUD 12/11 - OPID thoracic 3 thoracic 3 - [facility] views DX views DX : 1935; Age: 79 years y/o Male MR: [id number] Read by: Billy Zee MD Dictated Date/time: 12/12/15 12:18 Electronically Signed by: Billy Zee MD 12/12/15 12:21 FINAL REPORT Study: Spine thoracic 3 views DX 12/12/2015 10:53 AM CDT Ordering Physician: Prashant Dooley MD Comparison: 12/14/2012 Clinical Indication: M54.5 Low back pain; dorsalgia 4 x 1 mm metallic radiopaque foreign body is noted at the ventral right chest wall soft tissues. A 2.5 x 4.2 mm metallic radiopaque foreign body is noted at the soft tissues of the neck on the left. Res idual Pantopaque is noted at the dorsal left side of the lower thoracic spinal canal. Marginal spurring is noted at all thoracic vertebral bodies. Pedicles appear intact. Paraspinous stripes are normal. Thoracic vertebral body heights are maintained as visualized. No acute fracture or dislocation. No spondylolisthesis. SL: [id number] Spine Spine lumbar Patient Name: ONEAL PERSAUD 12/11 [facility] OPID lumbar 2 2 or 3 views /2015 - [facility] or 3 views DX : 1935; Age: 79 years y/o Male DX MR: [id number] Read by: Billy Zee MD Dictated Date/time: 12/12/15 12:27 Electronically Signed by: Billy Zee MD 12/12/15 12:29 FINAL REPORT Study: Spine lumbar 2 or 3 views DX 12/12/2015 11:31 AM CDT Ordering Physician: Prashant Dooley MD Comparison: None Clinical Indication: low back pain; lumbar back pain PA, lateral and cone lateral views of the lumbar spine were obtained. Narrowing of the disc spaces at L3-L4 and L4-L5 is noted consistent with degenerative disc disease. Marginal spurring is noted at the visualized lower thoracic and lumbar vertebral bodies. Lumbar vertebral body heights and interspaces are otherwise well- maintained. There is no acute fracture, dislocation or spondylolisthesis. Surgical clips are noted at the right upper quadrant. Residual Pantopaque is noted at the thoracic spinal canal. Vascular calcification at the abdomen and pelvis. SL: [id number] Chest 2 Chest 2 Patient Name: ONEAL PERSAUD 12/11 - OPID views DX views DX - [facility] : 1935; Age: 79 years y/o Male MR: [id number] Read by: Billy Zee MD Dictated Date/time: 12/12/15 12:16 Electronically Signed by: Billy Zee MD 12/12/15 12:18 FINAL REPORT Study: Chest 2 views DX 12/12/2015 10:57 AM CDT Ordering Physician: Prashant Dooley MD Comparison: None Clinical Indication: R60.9 Edema, unspecified; Lungs are clear. No pulmonary venous vascular congestion. Cardiac silhouette is not enlarged. Uncoiling of the thoracic aorta is noted associated with vascular calcification at the arch. There is no acu te consolidation or pleural fluid collection noted. Marginal spurring is noted at the thoracic spine. Punctate metallic radiopaque foreign body is noted at the ventral soft tissues of the upper chest. IMPRESSION: No acute cardiopulmonary process. SL: [id number] Bone Bone Density - Bone Density DXA [employer] MA 04/07 OPID Density DXA Dual /2013 - [facility] DXA [employer] MA MALE BONE DENSITY EVALUATION: 04/07/2014 Energy MA Read by: Luci Wilson MD Dictated Date/time: 04/10/14 11:01 FINDINGS: Electronically Signed by: Luci Wilson MD 04/10/14 11:01 FINAL REPORT Bone density evaluation was performed 04/07/2014 on the AP L1-L4 region of spine using [employer] X-Ray Absorptiometry. The BMD average for the exam is 1.406 g/cm2. The T-score is 1.50 and the Z -score is 2.30. These values indicate 115.0% of bone mineralization for young normals and 124.0% for age-matched controls. This matches the World Health Organization's criteria for normal bone de nsity and places the patient within normal limits of fracture risk. An additional bone density evaluation was performed 04/07/2014 on the right femur neck using [employer] X-Ray Absorptiometry. The BMD average for the exam is 0.757 g/cm2. The T-score is -2.40 an d the Z-score is -0.90. These values indicate 71.0% of bone mineralization for young normals and 87.0% for age-matched controls. This matches the World Health Organization's criteria for osteopen ia and places the patient at a medium risk for fracture. An additional bone density evaluation was performed 04/07/2014 on the left femur neck using [employer] X-Ray Absorptiometry. The BMD average for the exam is 0.770 g/cm2. The T-score is -2.30 and the Z-score is -0.80. These values indicate 72.0% of bone mineralization for young normals and 88.0% for age-matched controls. This matches the World Health Organization's criteria for osteopeni a and places the patient at a medium risk for fracture. IMPRESSION: OSTEOPENIA Patient is at medium risk for fracture. Patient consult w/primary care provider is recommended. Dr. 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: Hiwot IGLESIAS)(Luzma), [facility] Vital Signs Vital Sign Value Date Comments Source Heart Rate 55 01/26/2017 [facility] Systolic (mm Hg) 157 01/26/2017 [facility] Diastolic (mm Hg) 70 01/26/2017 [facility] Temperature Oral (F) 98.6 F 01/26/2017 [facility] Respitory Rate 12 01/26/2017 [facility] Weight 75 01/26/2017 [facility] BMI Calculated 26.69 01/26/2017 [facility] Height 167.64 cm 01/26/2017 [facility] Respitory Rate 18 01/26/2017 [facility] Heart Rate 70 01/26/2017 [facility] Temperature Oral (F) 98.1 F 01/26/2017 [facility] Systolic (mm Hg) 122 01/26/2017 [facility] Diastolic (mm Hg) 70 01/26/2017 [facility] Systolic (mm Hg) 154 01/05/2017 [facility] Diastolic (mm Hg) 72 01/05/2017 [facility] Respitory Rate 10 01/05/2017 [facility] Systolic (mm Hg) 167 01/05/2017 [facility] Diastolic (mm Hg) 77 01/05/2017 [facility] Respitory Rate 10 01/05/2017 [facility] Systolic (mm Hg) 169 01/05/2017 [facility] Diastolic (mm Hg) 77 01/05/2017 [facility] Respitory Rate 10 01/05/2017 [facility] Height 165.1 cm 01/05/2017 [facility] Weight 79.091 01/05/2017 [facility] BMI Calculated 29.02 01/05/2017 [facility] Temperature Oral (F) 97.6 F 01/05/2017 [facility] Weight 75.909 09/23/2016 [facility] BMI Calculated 28.73 09/23/2016 [facility] Height 162.56 cm 09/23/2016 [facility] Weight 74.545 05/12/2016 [facility] BMI Calculated 27.35 05/12/2016 [facility] Height 165.1 cm 05/12/2016 [facility] Weight 75.455 05/02/2016 [facility] BMI Calculated 27.68 05/02/2016 [facility] Height 165.1 cm 05/02/2016 [facility] Temperature Oral (F) 97.5 F 04/18/2016 [facility] Heart Rate 59 04/18/2016 [facility] Systolic (mm Hg) 128 04/18/2016 [facility] Diastolic (mm Hg) 70 04/18/2016 [facility] Respitory Rate 18 04/18/2016 [facility] Respitory Rate 18 04/18/2016 [facility] Systolic (mm Hg) 144 04/18/2016 [facility] Diastolic (mm Hg) 71 04/18/2016 [facility] Temperature Oral (F) 97.5 F 04/18/2016 [facility] Heart Rate 56 04/18/2016 [facility] Systolic (mm Hg) 163 04/18/2016 [facility] Diastolic (mm Hg) 65 04/18/2016 [facility] Respitory Rate 18 04/18/2016 [facility] Heart Rate 54 04/18/2016 [facility] Temperature Oral (F) 97.9 F 04/18/2016 [facility] Height 165.1 cm 04/17/2016 [facility] BMI Calculated 27.21 04/17/2016 [facility] Weight 74.176 04/17/2016 [facility] Height 165.1 cm 04/17/2016 [facility] Weight 74.091 04/17/2016 [facility] BMI Calculated 27.18 04/17/2016 [facility] Systolic (mm Hg) 141 12/13/2015 [facility] Diastolic (mm Hg) 72 12/13/2015 [facility] Respitory Rate 18 12/13/2015 [facility] Heart Rate 55 12/13/2015 [facility] Heart Rate 54 12/13/2015 [facility] Respitory Rate 18 12/13/2015 [facility] Systolic (mm Hg) 156 12/13/2015 [facility] Diastolic (mm Hg) 74 12/13/2015 [facility] Respitory Rate 18 12/13/2015 [facility] Systolic (mm Hg) 142 12/13/2015 [facility] Diastolic (mm Hg) 72 12/13/2015 [facility] Heart Rate 50 12/13/2015 [facility] Temperature Oral (F) 97.8 F 12/13/2015 [facility] Temperature Oral (F) 98.8 F 12/13/2015 [facility] Temperature Oral (F) 97.7 F 12/13/2015 [facility] Height 167.64 cm 12/12/2015 [facility] Weight 72.636 12/12/2015 [facility] BMI Calculated 25.85 12/12/2015 [facility] BMI Calculated 27.52 12/12/2015 [facility] Weight 72.727 12/12/2015 [facility] Height 162.56 cm 12/12/2015 [facility] Height 167.64 cm 12/12/2015 [facility] Weight 72.727 12/12/2015 [facility] BMI Calculated 25.88 12/12/2015 [facility] Encounters Location Location Encounter Encounter Reason Attending ADM DC Status Source Details Type Number For Provider Date Date Visit OD [id number] 723.1 - PRASHANT 12/14 Active [facility] 0 CERVICAL [place] [facility] PAULINE [facility] Outpt Diag [id number] Prashant 12/11 12/12 [facility] Outpatient Services 2 [place] /2015 [facility] Outpatient [id number] Prashant 12/11 12/12 [place] 4 [place] /2015 [facility] OBS [id number] Tajuddin 12/11 12/12 [place] Observation 0 Lety /2015 [facility] Outpatient [id number] ECHO VISIT 12/31 [facility] [id number] ECHO VISIT 12/31 Active [facility] Outpt Diag [id number] Meena 01/21 01/22 [facility] Out[facility] 3 [facility] [place] [facility] [id number] SAE 01/31 [facility] 2 [place] Outpatient [id number] SAE 02/03 Active [facility] 4 [facility] Outpt Diag [id number] Prashant 04/03 04/04 [facility] Outpatient Services 4 [place] [facility] Observation [id number] Laura 04/17 04/18 [facility] 1 Anighoro [facility] Wound Care [id number] [place] 05/01 05/31 [place] 0 [place] [facility] Outpatient [id number] [place] 05/12 05/13 [place] 2 [place] [facility] Outpt Diag [id number] Janny Sen 06/02 06/03 [facility] Outpatient Services [facility] Wound Care [id number] [place] 06/05 06/21 [facility] 1 [place] [facility] Wound Care [id number] Babajide 06/26 07/26 [facility] 2 [place] [facility] Recurring [id number] Babajide 07/30 08/29 [place] 3 [place] [facility] Outpatient [id number] SAE 08/04 Active [facility] 5 [facility] W[facility] Care [id number] Babajide 09/02 10/02 [place] 4 [place] [facility] Outpatient [id number] Meena 09/23 09/24 [place] 5 [place] [facility] Outpt Diag [id number] Babajide 10/01 10/02 [facility] Outpatient Services 6 [place] [facility] Wound Care [id number] Babajide 10/08 11/07 [place] 5 [place] [facility] Wound Care [id number] Babajide 11/19 12/19 [facility] 6 [place] [facility] Bedded [id number] Meena 01/05 01/05 [facility] Outpatient 6 [facility] Outpatient [id number] SAE 01/06 Active [facility] 6 [facility] Outpt Diag [id number] Marializa 01/23 01/24 [facility] Outpatient Services 7 Krishna [facility] Emergency [id number] Jesusita 01/26 01/26 [place] 7 [place] [facility] Procedures Procedure Code Date Perfomer Comments Source Cataract surgery [id number] [facility] [place] Cholecystectomy [id number] [facility] [place] Cystoscopy and [id number] [facility] transurethral biopsy [place] of prostate Local anesthetic 553799390 [facility] cervical facet joint [place] nerve block Lumbar discectomy 996487990 [facility] [place] Removal of thyroid 465524274 [facility] nodule [place] Cataract surgery [id number] [facility] Cholecystectomy [id number] [place] Cystoscopy and [id number] [place] transurethral biopsy of prostate Local anesthetic [id number] [facility] cervical facet joint nerve block Lumbar discectomy [id number] [place] Removal of thyroid [id number] [facility] nodule Cataract surgery [id number] [facility] [place] Cholecystectomy [id number] [facility] [place] Cystoscopy and [id number] [facility] [place] transurethral biopsy [place] of prostate Local anesthetic 983361080 [facility] [place] cervical facet joint [place] nerve block Lumbar discectomy 985906712 [facility] [place] Removal of thyroid 791894054 [facility] [place] nodule [place] IVC - Insertion of [id number] [facility] inferior vena caval filter
--- OUTSIDE RECORDS SUMMARY | 2018-02-01 09:35 | XMS REPORT | Summary of Care ---
:1935 Author Organization [facility] Outpatient Imaging [facility] Address [address] [place] [id number]- Encounter HQ Encntr_alias(FIN) [id number] Date(s): 12/12/15 - 12/12/15 [facility] Outpatient Imaging [address] [address]- [phone] Discharge Disposition: Home Attending Physician: Prashant [place] MD Vital Signs No data available for this section Problem List Condition Effective Dates Status Health Status Informant Depression (emotion)(Confirmed) Resolved Diabetes(Confirmed) Resolved Hypertension(Confirmed) Resolved Allergies, Adverse Reactions, Alerts Substance Reaction Severity Status codeine Active Medications No data available for this section Results No data available for this section Immunizations No data available for this section Procedures Procedure Date Related Diagnosis Body Site Cataract surgery Cholecystectomy Cystoscopy and transurethral biopsy of prostate Local anesthetic cervical facet joint nerve block Lumbar discectomy Removal of thyroid nodule Social History Social History Type Response Substance Abuse Use: None. Sexual Sexually active: No. Exercise Exercise duration: 0. Employment/School Status: Retired. Alcohol Past Smoking Status Never smoker; Exposure to Tobacco Smoke None; Cigarette Smoking Last 365 Days No; Reg Smoking Cessation Counseling No Assessment and Plan No data available for this section
--- OUTSIDE RECORDS SUMMARY | 2018-02-01 09:35 | XMS REPORT | Summary of Care ---
:1935 Author Organization [facility] Address [address], [place] [address]- Encounter HQ Brian(FIN) [phone] Date(s): 12/12/15 - 12/13/[address] [address]- Discharge Disposition: Home Attending Physician: Ralf Davidson MD Vital Signs Most recent to oldest 1 2 3 [Reference Range]: Height 167.64 cm 162.56 cm (12/12/15 5:21 PM) (12/12/15 2:01 PM) Temperature Oral [96.4-99.1 97.8 DegF 98.8 DegF 97.7 DegF DegF] (12/13/15 5:10 AM) (12/13/15 12:15 AM) (12/12/15 8:05 PM) Blood Pressure [90-140/60-90 141/72 mmHg 156/74 mmHg 142/72 mmHg mmHg] *HI* *HI* *HI* (12/13/15 12:00 PM) (12/13/15 8:00 AM) (12/13/15 5:10 AM) Respiratory Rate [14-20 18 BRMIN 18 BRMIN 18 BRMIN BRMIN] (12/13/15 12:00 PM) (12/13/15 8:00 AM) (12/13/15 5:10 AM) Peripheral Pulse Rate [60-100 55 bpm 54 bpm 50 bpm bpm] *LOW* *LOW* *LOW* (12/13/15 12:00 PM) (12/13/15 8:00 AM) (12/13/15 5:10 AM) Weight 72.636 kg 72.727 kg (12/12/15 5:21 PM) (12/12/15 2:01 PM) Body Mass Index 25.85 m2 27.52 m2 (12/12/15 5:21 PM) (12/12/15 2:01 PM) Problem List Condition Effective Dates Status Health Status Informant Depression (emotion)(Confirmed) Resolved Diabetes(Confirmed) Resolved Hypertension(Confirmed) Resolved Allergies, Adverse Reactions, Alerts Substance Reaction Severity Status codeine Active Medications acetaminophen 650 mg, 2 tab, Route: PO, Drug form: TAB, Q6H, Dosing Weight 72.727, kg, PRN Pain 1-3/Temp > 100.4 F, Start date: 12/12/15 17:56:00 CDT, Duration: 30 day, Stop date: 01/11/16 17:55:00 CDT Notes: Do not exceed 4 gm/day. (Same as: Tylenol) Start Date: 12/12/15 Stop Date: 12/13/15 Status: Discontinuedalendronate 70 mg, PO, QSun, 0 Refill(s) Start Date: 12/13/15 Status: OrderedamLODIPine 2.5 mg, PO, Daily, 0 Refill(s) Start Date: 12/13/15 Status: OrderedColace 100 mg oral capsule 100 mg, 1 cap, Route: PO, Drug form: CAP, BID, Dosing Weight 72.727, kg, PRN Constipation, Start date: 12/12/15 17:56:00 CDT, Duration: 30 day, Stop date: 17:55:00 CDT Notes: (Same as: Colace) (Do Not Crush) Start Date: 12/12/15 Stop Date: 12/13/15 Status: DiscontinuedDextrose 50% Syringe 12.5 gm, 25 mL, Route: IVP, Drug Form: INJ, Dosing Weight 72.636, kg, PRN, PRN Blood Glucose Results, Start date: 12/12/15 17:58:00 CDT, Duration: 30 day, Stop date: 01/11/16 17:57:00 CDT Start Date: 12/12/15 Stop Date: 12/13/15 Status: DiscontinuedDextrose 50% Syringe 25 gm, 50 mL, Route: IVP, Drug Form: INJ, Dosing Weight 72.636, kg, PRN, PRN Blood Glucose Results, Start date: 12/12/15 17:58:00 CDT, Duration: 30 day, Stop date: 01/11/16 17:57:00 CDT Start Date: 12/12/15 Stop Date: 12/13/15 Status: DiscontinuedDiltiazem Hydrochloride ER 180 mg, PO, Daily, 0 Refill(s) Start Date: 12/13/15 Status: OrderedDulcolax Laxative 10 mg, 1 supp, Route: UT, Drug form: SUPP, ONCE, Dosing Weight 72.727, kg, PRN Constipation, Start date: 12/12/15 17:56:00 CDT Notes: (Same As: Dulcolax, Bisco-Lax) Start Date: 12/12/15 Stop Date: 12/13/15 Status: DiscontinuedDuoNeb inhalation solution 3 ml, Route: NEB, Drug Form: SOLN, Dosing Weight 72.727, kg, RQID, PRN Shortness of breath, Start date: 12/12/15 17:56:00 CDT, Duration: 30 day, Stop date: 01/11/16 17:55:00 CDT Notes: (Same as: Duoneb) Start Date: 12/12/15 Stop Date: 12/13/15 Status: DiscontinuedEliquis 5 mg oral tablet 5 mg=1 tab, PO, BID, 2 pills po bid for first 7 days then 1 pill po bid, # 70 tab, 0 Refill(s) Start Date: 12/13/15 Stop Date: 01/12/16 Status: Orderedenoxaparin 72 mg, Route: SUB-Q, ONCE, Dosing Weight 72.727, kg, Priority: STAT, Start date : 12/12/15 13:59:00 CDT, Stop date: 12/12/15 13:59:00 CDT Start Date: 12/12/15 Stop Date: 12/12/15 Status: Discontinuedenoxaparin 70 mg, 0.7 mL, Route: SUB-Q, Drug form: INJ, Daily, Dosing Weight 72.727, kg, Start date: 12/14/15 3:00:00 CDT, Duration: 30 day, Stop date: 01/12/16 3:00:00 CDT Notes: Nurse to ensure documentation of patient education per anticoagulation policy. (Same as: Lovenox) Start Date: 12/14/15 Stop Date: 12/13/15 Status: Canceledenoxaparin 70 mg, 0.7 mL, Route: SUB-Q, Drug form: INJ, [id number], Dosing Weight 72.727, kg , Start date: 12/12/15 18:00:00 CDT, Duration: 30 day, Stop date: 01/11/16 15:00 :00 CDT Notes: Nurse to ensure documentation of patient education per anticoagulation policy. (Same as: Lovenox) Start Date: 12/12/15 Stop Date: 12/13/15 Status: DiscontinuedFish Oil 1,200 mg, PO, with lunch, 0 Refill(s) Start Date: 12/13/15 Status: Orderedgabapentin 300 mg, PO, TID, 0 Refill(s) Start Date: 12/13/15 Status: Orderedglucagon 1 mg, Route: IM, Drug form: PDR/INJ, PRN, Dosing Weight 72.636, kg, PRN Blood Glucose Results, Startdate: 12/12/15 17:58:00 CDT, Duration: 30 day, Stop date: 01/11/16 17:57:00 CDT Start Date: 12/12/15 Stop Date: 12/13/15 Status: DiscontinuedhydrALAZINE 10 mg, 0.5 mL, Route: IVP, Drug form: INJ, Q4H, Dosing Weight 72.727, kg, PRN Hypertension, Start date: 12/12/15 17:56:00 CDT, Duration: 30 day, Stop date: 17:55:00 CDT Notes: (Same as: Apresoline)Push over 5 minutes Start Date: 12/12/15 Stop Date: 12/13/15 Status: Discontinuedhydrochlorothiazide-losartan 12.5 mg-100 mg oral tablet 1 tab, PO, Daily, 2 hours after breakfast, 0 Refill(s) Start Date: 12/13/15 Status: Orderedinsulin aspart 4 unit, 0.04 mL, Route: SUB-Q, Drug form: SOLN, TID-Before Meals, Dosing Weight 72.636, kg, PRN Blood Glucose Results, Start date: 12/12/15 17:58:00 CDT, Duration: 30 day, Stop date: 01/11/16 17:57:00 CDT Notes: Roll in palms of hands gently; Do not shake vigorously. (Same as: ClearwaveLOG)"single patient use only"WASTE: F/P - Black; E - Municipal Trash Bin Stable for 28 days at room temperature.Expires in days from Date Start Date: 12/12/15 Stop Date: 12/13/15 Status: Discontinuedinsulin aspart 1 unit, 0.01 mL, Route: SUB-Q, Drug form: SOLN, Bedtime, Dosing Weight 72.636, kg, PRN Blood GlucoseResults, Start date: 12/12/15 17:58:00 CDT, Duration: 30 day, Stop date: 01/11/16 17:57:00 CDT Notes: Roll in palms of hands gently; Do not shake vigorously. (Same as: ClearwaveLOG)"single patient use only"WASTE: F/P - Black; E - Municipal Trash Bin Stable for 28 days at room temperature.Expires in days from Date Start Date: 12/12/15 Stop Date: 12/13/15 Status: Discontinuedinsulin aspart 2 unit, 0.02 mL, Route: SUB-Q, Drug form: SOLN, Bedtime, Dosing Weight 72.636, kg, PRN Blood GlucoseResults, Start date: 12/12/15 17:58:00 CDT, Duration: 30 day, Stop date: 01/11/16 17:57:00 CDT Notes: Roll in palms of hands gently; Do not shake vigorously. (Same as: NovoLOG)"single patient use only"WASTE: F/P - Black; E - Municipal Trash Bin Stable for 28 days at room temperature.Expires in days from Date Start Date: 12/12/15 Stop Date: 12/13/15 Status: Discontinuedinsulin aspart 3 unit, 0.03 mL, Route: SUB-Q, Drug form: SOLN, Bedtime, Dosing Weight 72.636, kg, PRN Blood GlucoseResults, Start date: 12/12/15 17:58:00 CDT, Duration: 30 day, Stop date: 01/11/16 17:57:00 CDT Notes: Roll in palms of hands gently; Do not shake vigorously. (Same as: ClearwaveLOG)"single patient use only"WASTE: F/P - Black; E - Municipal Trash Bin Stable for 28 days at room temperature.Expires in days from Date Start Date: 12/12/15 Stop Date: 12/13/15 Status: Discontinuedinsulin aspart 4 unit, 0.04 mL, Route: SUB-Q, Drug form: SOLN, Bedtime, Dosing Weight 72.636, kg, PRN Blood GlucoseResults, Start date: 12/12/15 17:58:00 CDT, Duration: 30 day, Stop date: 01/11/16 17:57:00 CDT Notes: Roll in palms of hands gently; Do not shake vigorously. (Same as: ClearwaveLOG)"single patient use only"WASTE: F/P - Black; E - Municipal Trash Bin Stable for 28 days at room temperature.Expires in days from Date Start Date: 12/12/15 Stop Date: 12/13/15 Status: Discontinuedinsulin aspart 6 unit, 0.06 mL, Route: SUB-Q, Drug form: SOLN, TID-Before Meals, Dosing Weight 72.636, kg, PRN Blood Glucose Results, Start date: 12/12/15 17:58:00 CDT, Duration: 30 day, Stop date: 01/11/16 17:57:00 CDT Notes: Roll in palms of hands gently; Do not shake vigorously. (Same as: ClearwaveLOG)"single patient use only"WASTE: F/P - Black; E - Municipal Trash Bin Stable for 28 days at room temperature.Expires in days from Date Start Date: 12/12/15 Stop Date: 12/13/15 Status: Discontinuedinsulin aspart 8 unit, 0.08 mL, Route: SUB-Q, Drug form: SOLN, TID-Before Meals, Dosing Weight 72.636, kg, PRN Blood Glucose Results, Start date: 12/12/15 17:58:00 CDT, Duration: 30 day, Stop date: 01/11/16 17:57:00 CDT Notes: Roll in palms of hands gently; Do not shake vigorously. (Same as: [employer])"single patient use only"WASTE: F/P - Black; E - Municipal Trash Bin Stable for 28 days at room temperature.Expires in days from Date Start Date: 12/12/15 Stop Date: 12/13/15 Status: Discontinuedinsulin aspart 10 unit, 0.1 mL, Route: SUB-Q, Drug form: SOLN, TID-Before Meals, Dosing Weight 72.636, kg, PRN Blood Glucose Results, Start date: 12/12/15 17:58:00 CDT, Duration: 30 day, Stop date: 01/11/16 17:57:00 CDT Notes: Roll in palms of hands gently; Do not shake vigorously. (Same as: [employer])"single patient use only"WASTE: F/P - Black; E - Municipal Trash Bin Stable for 28 days at room temperature.Expires in days from Date Start Date: 12/12/15 Stop Date: 12/13/15 Status: Discontinuedinsulin aspart 2 unit, 0.02 mL, Route: SUB-Q, Drug form: SOLN, TID-Before Meals, Dosing Weight 72.636, kg, PRN Blood Glucose Results, Start date: 12/12/15 17:58:00 CDT, Duration: 30 day, Stop date: 01/11/16 17:57:00 CDT Notes: Roll in palms of hands gently; Do not shake vigorously. (Same as: [employer])"single patient use only"WASTE: F/P - Black; E - Municipal Trash Bin Stable for 28 days at room temperature.Expires in days from Date Start Date: 12/12/15 Stop Date: 12/13/15 Status: DiscontinuedLovenox 70 mg, Route: SUB-Q, Drug form: INJ, ONCE, Dosing Weight 72.727, kg, Priority: STAT, Start date: 12/12/15 14:37:00 CDT, Stop date: 12/12/15 14:37:00 CDT Start Date: 12/12/15 Stop Date: 12/12/15 Status: CompletedMaxiVision Lutein Formula 10 mg, PO, Daily, 0 Refill(s) Start Date: 12/13/15 Status: Orderedmultivitamin with minerals 0 Refill(s) Start Date: 12/13/15 Status: OrderedNorco 7.5/325 oral tablet 1 tab, Route: PO, Drug Form: TAB, Dosing Weight 72.727, kg, Q4H, PRN Pain Score 4-6, Start date: 12/12/15 17:56:00 CDT, Duration: 30 day, Stop date: 01/11/16 17 :55:00 CDT Notes: Same as [place] 325-7.5mg Do not exceed 4gm/day of acetaminophen. Start Date: 12/12/15 Stop Date: 12/13/15 Status: DiscontinuedOsteo Bi-Flex 0 Refill(s) Start Date: 12/13/15 Status: OrderedOsteo Bi-Flex Triple Strength QAM, 0 Refill(s) Start Date: 12/13/15 Status: Orderedpioglitazone 15 mg, PO, Daily, 0 Refill(s) Start Date: 12/13/15 Status: OrderedPrilosec 20 mg, PO, Daily, 0 Refill(s) Start Date: 12/13/15 Status: OrderedProtonix 40 mg, 1 tab, Route: PO, Drug form: ECTAB, Daily, Dosing Weight 72.727, kg, Start date: 12/13/15 9:00:00 CDT, Duration: 30 day, Stop date: 01/11/16 9:00:00 CDT Notes: Tablet should not be chewed or crushed.(Same as: Protonix) Start Date: 12/13/15 Stop Date: 12/13/15 Status: DiscontinuedSaline Flush 0.9% 10 mL, Route: IVP, Drug Form: INJ, Dosing Weight 72.727, kg, PRN, PRN Line Flush , Start date: 12/12/15 13:59:00 CDT, Duration: 30 day, Stop date: 01/11/16 13:58 :00 CDT Notes: (Same as: BD Posiflush) Start Date: 12/12/15 Stop Date: 12/13/15 Status: Discontinuedsertraline 50 mg, PO, Daily, at bedtime, 0 Refill(s) Start Date: 12/13/15 Status: OrderedVitamin D3 5000 intl units oral tablet 5,000 IntlUnit=1 tab, PO, Daily, 0 Refill(s) Start Date: 12/13/15 Status: OrderedZofran 4 mg, 2 mL, Route: IVP, Drug form: INJ, Q6H, Dosing Weight 72.727, kg, PRN Nausea, Start date: 12/12/15 17:56:00 CDT, Duration: 30 day, Stop date: 17:55:00 CDT Notes: (Same as: Zofran) MEDICATION WASTE Product Size: 4 mgProduct Wasted: ___ mg Start Date: 12/12/15 Stop Date: 12/13/15 Status: Discontinued Results ELECTROLYTES Most recent to oldest [Reference Range]: 1 2 Sodium Lvl [135-145 mEq/L] 135 mEq/L 134 mEq/L (12/13/15 4:43 AM) *LOW* (12/12/15 2:35 PM) Potassium Lvl [3.5-5.1 mEq/L] 3.9 mEq/L 3.9 mEq/L (12/13/15 4:43 AM) (12/12/15 2:35 PM) Chloride Lvl [95-109 mEq/L] 101 mEq/L 100 mEq/L (12/13/15 4:43 AM) (12/12/15 2:35 PM) CO2 [24-32 mEq/L] 28 mEq/L 30 mEq/L (12/13/15 4:43 AM) (12/12/15 2:35 PM) AGAP [10.0-20.0 mEq/L] 9.9 mEq/L 7.9 mEq/L *LOW* *LOW* (12/13/15 4:43 AM) (12/12/15 2:35 PM) CHEM PANEL Most recent to oldest [Reference Range]: 1 2 Creatinine Lvl [0.50-1.40 mg/dL] 1.70 mg/dL 1.78 mg/dL *HI* *HI* (12/13/15 4:43 AM) (12/12/15 2:35 PM) eGFR 38 mL/min/1.73m2 1 36 mL/min/1.73m2 2 *NA* *NA* (12/13/15 4:43 AM) (12/12/15 2:35 PM) BUN [7-22 mg/dL] 26 mg/dL 29 mg/dL *HI* *HI* (12/13/15 4:43 AM) (12/12/15 2:35 PM) B/C Ratio [6-25] 15 16 (12/13/15 4:43 AM) (12/12/15 2:35 PM) Glucose Lvl [70-99 mg/dL] 176 mg/dL 247 mg/dL *HI* *HI* (12/13/15 4:43 AM) (12/12/15 2:35 PM) Total Protein [6.4-8.4 g/dL] 7.4 g/dL 7.6 g/dL (12/13/15 4:43 AM) (12/12/15 2:35 PM) Albumin Lvl [3.5-5.0 g/dL] 4.0 g/dL 4.0 g/dL (12/13/15 4:43 AM) (12/12/15 2:35 PM) Globulin [2.0-4.0 g/dL] 3.4 g/dL 3.6 g/dL (12/13/15 4:43 AM) (12/12/15 2:35 PM) A/G Ratio [0.7-1.6] 1.2 1.1 (12/13/15 4:43 AM) (12/12/15 2:35 PM) Calcium Lvl [8.5-10.5 mg/dL] 9.1 mg/dL 8.5 mg/dL (12/13/15 4:43 AM) (12/12/15 2:35 PM) ALT [0-65 unit/L] 21 unit/L 20 unit/L (12/13/15 4:43 AM) (12/12/15 2:35 PM) AST [0-37 unit/L] 16 unit/L 13 unit/L (12/13/15 4:43 AM) (12/12/15 2:35 PM) Alk Phos [39-136 unit/L] 65 unit/L 82 unit/L (12/13/15 4:43 AM) (12/12/15 2:35 PM) Bili Total [0.2-1.3 mg/dL] 0.4 mg/dL 0.4 mg/dL (12/13/15 4:43 AM) (12/12/15 2:35 PM) 1Result Comment: The eGFR is calculated using the CKD-EPI formula. In most young , healthy individualsthe eGFR will be >90 mL/min/1.73m2. The eGFR declines with age. An eGFR of 60-89 may be normal in some populations, particularly the elderly, for whom the CKD-EPI formula has not been extensively validated. Use of the eGFR is not recommended in the following populations: Individuals with unstable creatinine concentrations, including patients and those with serious co-morbid conditions. Patients with extremes in muscle mass or diet. The data above are obtained from the National Kidney Disease Education Program ( NKDEP) which additionally recommends that when the eGFR is used in patients with extremes of body mass index for purposesof drug dosing, the eGFR should be multiplied by the estimated BMI.2Result Comment: The eGFR is calculated using the CKD-EPI formula. In most young, healthy individualsthe eGFR will be >90 mL/ min/1.73m2. The eGFR declines with age. An eGFR of 60-89 may be normal in some populations, particularly the elderly, for whom the CKD-EPI formula has not been extensively validated. Use of the eGFR is not recommended in the following populations: Individuals with unstable creatinine concentrations, including patients and those with serious co-morbid conditions. Patients with extremes in muscle mass or diet. The data above are obtained from the National Kidney Disease Education Program ( NKDEP) which additionally recommends that when the eGFR is used in patients with extremes of body mass index for purposesof drug dosing, the eGFR should be multiplied by the estimated BMI.SPECIAL CHEMISTRY Most recent to oldest [Reference Range]: 1 2 PSA [0.00-4.00 ng/mL] 0.68 ng/mL (12/13/15 8:58 AM) IMMUNOLOGY Most recent to oldest [Reference Range]: 1 2 WADE [Negative] Negative 1 (12/13/15 8:58 AM) Cardiolipin IgA [<=19.9 APL-U/mL] <0.5 APL-U/mL <0.5 APL-U/mL (12/13/15 8:58 AM) (12/12/15 4:43 PM) Cardiolipin IgG [<=19.9 GPL-U/mL] <1.6 GPL-U/mL <1.6 GPL-U/mL (12/13/15 8:58 AM) (12/12/15 4:43 PM) Cardiolipin IgM [<=19.9 MPL-U/mL] 0.5 MPL-U/mL 0.4 MPL-U/mL (12/13/15 8:58 AM) (12/12/15 4:43 PM) Beta2-Glycoprotein IgM [<=19.9 unit/mL] 0.3 unit/mL 0.3 unit/mL (12/13/15 8:58 AM) (12/12/15 4:43 PM) Beta2-Glycoprotein IgG [<=19.9 unit/mL] <1.4 unit/mL <1.4 unit/mL (12/13/15 8:58 AM) (12/12/15 4:43 PM) Beta2-Glycoprotein IgA [<=19.9 unit/mL] <0.6 unit/mL <0.6 unit/mL (12/13/15 8:58 AM) (12/12/15 4:43 PM) Homocyst Tot [3.7-13.9 uMol/L] 16.7 uMol/L *HI* (12/13/15 8:58 AM) 1Result Comment: Marked Cytoplamic staining present.HEMATOLOGY Most recent to oldest 1 2 [Reference Range]: WBC [3.7-10.4 K/CMM] 5.7 K/CMM 5.2 K/CMM (12/13/15 4:43 AM) (12/12/15 2:35 PM) RBC [4.70-6.10 M/CMM] 4.65 M/CMM 4.46 M/CMM *LOW* *LOW* (12/13/15 4:43 AM) (12/12/15 2:35 PM) Hgb [14.0-18.0 g/dL] 15.2 g/dL 14.2 g/dL (12/13/15 4:43 AM) (12/12/15 2:35 PM) Hct [42.0-54.0 %] 44.5 % 43.1 % (12/13/15 4:43 AM) (12/12/15 2:35 PM) MCV [80.0-94.0 fL] 95.7 fL 96.6 fL *HI* *HI* (12/13/15 4:43 AM) (12/12/15 2:35 PM) MCH [27.0-31.0 pg] 32.6 pg 31.9 pg *HI* *HI* (12/13/15 4:43 AM) (12/12/15 2:35 PM) MCHC [32.0-36.0 g/dL] 34.1 g/dL 33.0 g/dL (12/13/15 4:43 AM) (12/12/15 2:35 PM) RDW [11.5-14.5 %] 13.1 % 13.1 % (12/13/15 4:43 AM) (12/12/15 2:35 PM) Platelet [133-450 K/CMM] 144 K/CMM 157 K/CMM (12/13/15 4:43 AM) (12/12/15 2:35 PM) MPV [7.4-10.4 fL] 11.6 fL 10.2 fL *HI* (12/12/15 2:35 PM) (12/13/15 4:43 AM) Segs [45.0-75.0 %] 62.1 % 66.3 % (12/13/15 4:43 AM) (12/12/15 2:35 PM) Lymphocytes [20.0-40.0 %] 23.1 % 20.6 % (12/13/15 4:43 AM) (12/12/15 2:35 PM) Monocytes [2.0-12.0 %] 11.3 % 10.0 % (12/13/15 4:43 AM) (12/12/15 2:35 PM) Eosinophils [0.0-4.0 %] 2.4 % 1.9 % (12/13/15 4:43 AM) (12/12/15 2:35 PM) Basophils [0.0-1.0 %] 1.1 % 1.2 % *HI* *HI* (12/13/15 4:43 AM) (12/12/15 2:35 PM) Segs-Bands # [1.5-8.1 K/CMM] 3.5 K/CMM 3.4 K/CMM (12/13/15 4:43 AM) (12/12/15 2:35 PM) Lymphocytes # [1.0-5.5 K/CMM] 1.3 K/CMM 1.1 K/CMM (12/13/15 4:43 AM) (12/12/15 2:35 PM) Monocytes # [0.0-0.8 K/CMM] 0.6 K/CMM 0.5 K/CMM (12/13/15 4:43 AM) (12/12/15 2:35 PM) Eosinophils # [0.0-0.5 K/CMM] 0.1 K/CMM 0.1 K/CMM (12/13/15 4:43 AM) (12/12/15 2:35 PM) Basophils # [0.0-0.2 K/CMM] 0.1 K/CMM 0.1 K/CMM (12/13/15 4:43 AM) (12/12/15 2:35 PM) PT [12.0-14.7 seconds] 14.9 seconds *HI* (12/12/15 2:35 PM) INR [0.85-1.17] 1.14 (12/12/15 2:35 PM) F2 Mutation PCR Negative (12/13/15 8:58 AM) F2 Mut Interp FACTOR II PT: Negative INTERPRETATION: Molecular analysis for the Factor II (Prothrombin) 15068P>A mutation was negative. Other causes of elevated prothrombin levels and hereditary forms of venous thrombosis are not ruled out. Final diagnosis requires correlation with clinical history and other pertinent laboratory findings. Where appropriate, medical consultation and genetic counseling should be offered to inform and explain the risk implications and genetic implications of these test results. ASSAY LIMITATIONS: The assay uses the FDA-cleared [employer]isel Factor II (Prothrombin) [id number] IVD (Polymerase chain reaction/FRET detection)kit, [employer]isel eMeterA Pure LC Instrument and the [employer] LightCycler 1.2 Instrument. A 165-bp fragment of Factor II gene(FII) containing the Factor II [id number] sequence is amplified in the assay. The assay is designed to detect the [id number] mutation only. Other causes of elevated prothrombin levels and hereditary forms of venous thrombosis are not ruled out. However, the melting curve analysis may implicate the presence of a possible rare mutation at position 01955 ( Further testing will be recommended in the report). A minimum detection level is 198 copies of Factor II per reaction. The level of agreement between the Factor II(Prothrombin) [id number] Kit and sequence analysis was 98.9%. The test result must be interpreted along with the patient's clinical history and revelant laboratory data. This assay has been validated by [facility]. *NA* (12/13/15 8:58 AM) F5 Leiden PCR Negative (12/13/15 8:58 AM) F5 Leiden Intrp FACTOR V LEIDEN: Negative INTERPRETATION: Molecular analysis for the Factor V Leiden, R506Q mutation was negative. Other causes of activated protein C resistance and hereditary forms of venous thrombosis are not ruled out. Final diagnosis requires correlation with clinical history and other pertinent laboratory findings. Where appropriate, medical consultation and/or genetic counseling should be offered to inform and explain the risk implications and genetic implications of these test results. ASSAY LIMITATIONS: The assay uses the FDA-cleared Grisel Factor V Leiden IVD(Poymerase chain reaction/FRET detection)kit, [employer]isel eMeterA Pure LC Instrument and the [employer] LightCycler 1.2 Instrument. A 222-bp fragment of Fact or V gene (FV) containing the Factor V Leiden sequence is amplified in the assay. The assay is designed to detect the G [id number] mutation only. Other causes of activated protein C resistance and hereditary forms of venous thrombosis are not ruled out. However,the melting curve analysis may implicate the presence of possible rare mutations at positions 1689 , 1692 and 1696. (Further testing will be recomme nded in the report). A minimum detection level is 202 copies of Factor V Leiden per reaction. The level of agreement between the Factor V Leiden Kit and sequence analysis was 99.4%. The test result must be interpreted along with the patient's clinical history and relevant laboratory data. This assay has been validated by [facility]. *NA* (12/13/15 8:58 AM) AT III Func [77-140 %] 94 % 86 % (12/13/15 8:58 AM) (12/12/15 4:43 PM) PTT [22.9-35.8 seconds] 32.1 seconds (12/12/15 2:35 PM) dRVV Ratio [<=1.20] 1.16 (12/13/15 8:58 AM) Hex Phos N [Negative] Negative (12/13/15 8:58 AM) Lup Interp Negative for lupus anticoagulant by DRVV screen and hexagonal phospholipid neutralization test. If there is a strong clinical suspicion of lupus anticoagulant, additional testing, to include repeat studies at a clinically appropriate interval and anticardiolipin antibody assays, is recommended. Interpretation performed at [facility]. *NA* (12/13/15 8:58 AM) Protein C Func [72-147 %] 152 % 162 % *HI* *HI* (12/13/15 8:58 AM) (12/12/15 4:43 PM) Protein S Func [54-137 %] 75 % 75 % (12/13/15 8:58 AM) (12/12/15 4:43 PM) TUMOR MARKERS Most recent to oldest [Reference Range]: 1 2 CEA [0.0-3.0 ng/mL] 6.1 ng/mL *HI* (12/13/15 8:58 AM) Immunizations No data available for this section [...]
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
--- OUTSIDE RECORDS SUMMARY | 2018-02-01 09:36 | XMS REPORT | Summary of Care ---
:1935 Author Organization [facility] Outpatient Imaging [address] [address]- Encounter [facility] Encntr_alias(FIN) [id number] Date(s): 04/03/16 - 04/03/16 [facility] Outpatient Imaging [address] [phone] Discharge Disposition: Home or Self Care Attending Physician: Prashant Dooley MD Vital Signs [...]
--- OUTSIDE RECORDS SUMMARY | 2018-02-01 09:36 | XMS REPORT | Summary of Care ---
:1935 Author Organization [facility] Address [address] [place] [address]- Encounter HQ Encntr_alias(FIN) [id number] Date(s): 07/30/16 - 08/28/[address] [address]- Discharge Disposition: Home or Self Care Attending Physician: Margarito Arnold DPLuzma Referring Physician: Margarito Arnold DPLuzma Vital Signs No data available for this [...]
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
--- OUTSIDE RECORDS SUMMARY | 2018-02-01 09:36 | XMS REPORT | Summary of Care ---
:[address] [facility] Address [address] [place] [address]- Encounter HQ Encntr_aliseema(FIN) [id number] Date(s): 11/19/16 - 12/18/[address] [address]- Discharge Disposition: Home or Self Care Attending [...]
--- OUTSIDE RECORDS SUMMARY | 2018-02-01 09:36 | XMS REPORT | Summary of Care ---
:1935 Author Organization [facility] Address [address] [place] [address]- Encounter HQ Encntr_aliseema(FIN) [id number] Date(s): 10/08/16 - 11/06/[address] [address]- Discharge Disposition: Home or Self Care Attending [...]
--- OUTSIDE RECORDS SUMMARY | 2018-02-01 09:36 | XMS REPORT | Summary of Care ---
:1935 Author Organization [facility] Address [address] [place] [address]- Encounter HQ Kristyn_temitope(FIN) [id number] Date(s): 09/23/16 - 09/23/[address] [address]- Discharge Disposition: Home or Self Care Attending Physician: Meena Malcolm MD Referring Physician: Meena Malcolm MD Vital Signs Most recent to oldest [Reference Range]: 1 Height 162.56 cm (09/23/16 9:24 AM) Weight 75.909 kg (09/23/16 9:24 AM) Body Mass Index 28.73 m2 (09/23/16 9:24 AM) Problem List Condition Effective Dates Status Health [...]
--- OUTSIDE RECORDS SUMMARY | 2018-02-01 09:36 | XMS REPORT | Summary of Care ---
:1935 Author Organization [facility] Address [address] [place] [address]- Encounter HQ Encntr_alias(FIN) [id number] Date(s): 06/05/16 - 06/21/[address] [address]- Discharge Disposition: Home or Self Care Attending Physician: Odessa Luke MD Referring Physician: Odessa Luke MD Vital Signs No data available for [...]
--- OUTSIDE RECORDS SUMMARY | 2018-02-01 09:36 | XMS REPORT | Summary of Care ---
:1935 Author Organization [facility] Address [address] [place] [address]- Encounter HQ Encntr_aliseema(FIN) [id number] Date(s): 09/02/16 - 10/01/[address] [address]- Discharge Disposition: Home or Self Care Attending [...]
--- OUTSIDE RECORDS SUMMARY | 2018-02-01 09:36 | XMS REPORT | Summary of Care ---
:1935 Author Organization [facility] Address [address] [place] [address]- Encounter HQ Karenntr_temitope(FIN) [id number] Date(s): 05/12/16 - 05/12/[address] [address]- Discharge Disposition: Home or Self Care Attending Physician: Odessa Luke MD Referring Physician: Odessa Luke MD Vital Signs Most recent to oldest [Reference Range]: 1 Height 165.1 cm (05/12/16 10:49 AM) Weight 74.545 kg (05/12/16 10:49 AM) Body Mass Index 27.35 m2 (05/12/16 10:49 AM) Problem List Condition Effective Dates Status [...]
--- OUTSIDE RECORDS SUMMARY | 2018-02-01 09:36 | XMS REPORT | Summary of Care ---
:1935 Author Organization [facility] Address [facility] [place], [place] [address]- Encounter HQ Karenntr_temitope(FIN) [id number] Date(s): 05/01/16 - 05/30/[address] [address]- Discharge Disposition: Home or Self Care Attending Physician: Odessa Luke MD Referring Physician: Odessa Luke MD Vital Signs Most recent to oldest [Reference Range]: 1 Height 165.1 cm (05/02/16 8:53 AM) Weight 75.455 kg (05/02/16 8:53 AM) Body Mass Index 27.68 m2 (05/02/16 8:53 AM) Problem List Condition Effective Dates Status [...]
--- OUTSIDE RECORDS SUMMARY | 2018-02-01 09:36 | XMS REPORT | Summary of Care ---
:1935 Author Organization [facility] Address [address] [place] [address]- Encounter HQ Karenntr_temitope(FIN) [id number] Date(s): 12/12/15 - 12/12/[address] [address]- Discharge Disposition: Home Attending Physician: Prashant Dooley MD Vital Signs Most recent to oldest [Reference Range]: 1 Height 167.64 cm (12/12/15 1:11 PM) Weight 72.727 kg (12/12/15 1:11 PM) Body Mass Index 25.88 m2 (12/12/15 1:11 PM) Problem List Condition Effective Dates Status [...]
--- OUTSIDE RECORDS SUMMARY | 2018-02-01 09:36 | XMS REPORT | Summary of Care ---
:[address] [facility]patient Imaging [address] [address]- Encounter HQ Encntr_alias(FIN) [id number] Date(s): 10/01/16 - 10/01/16 [facility] [address] [phone] Discharge Disposition: Home or Self Care Attending Physician: Margarito Arnold DPM Vital Signs No data available for this [...]
--- OUTSIDE RECORDS SUMMARY | 2018-02-01 09:36 | XMS REPORT | Summary of Care ---
:1935 Author Organization [facility] Address [address] [place] [address]- Encounter HQ Encntr_alias(FIN) [id number] Date(s): 06/26/16 - 07/25/[address] [address]- Discharge Disposition: Home or Self Care Attending Physician: Margarito Arnold DPM Referring Physician: Odessa Luke MD Vital Signs [...]
--- OUTSIDE RECORDS SUMMARY | 2018-02-01 09:36 | XMS REPORT | Summary of Care ---
:1935 Author Organization [facility] Outpatient Imaging [place] Address [address] [place] [address]- Encounter HQ Brian(FIN) [id number] Date(s): 01/22/16 - 01/22/16 [facility] Outpatient Imaging [address] [address]- Discharge Disposition: Home or Self Care Attending Physician: Meena Malcolm MD Vital Signs No data available for this section Problem List Condition Effective Dates Status Health Status Informant DVT (deep venous Active thrombosis)(Confirmed) Depression (emotion)(Confirmed) [...]
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
--- OUTSIDE RECORDS SUMMARY | 2018-02-01 09:37 | XMS REPORT | Summary of Care ---
:1935 Author Organization [facility] Outpatient Imaging [address] [address]- Encounter HQ Encntr_alias(FIN) [id number] Date(s): 01/23/17 - 01/23/17 [facility] Outpatient Imaging [address] [phone] Discharge Disposition: Home or Self Care Attending Physician: Lauren Keller MD Vital Signs No data available for [...]
[2018-02-01] MEDS ORDERED: DEXAMETHASONE 10 MG/ML VIAL ONE (09:54)
[2018-02-01] MEDS ORDERED: NA CHLORIDE 0.9% 500 ML ONE ×2 (09:55→11:19)
[2018-02-01] MEDS ORDERED: FENTANYL CITR 100 MCG/2 ML ONE (09:55)
[2018-02-01] MEDS ORDERED: ONDANSETRON 4 MG/2 ML VIAL ONE (09:55)
[2018-02-01 10:15] LABS: Absolute Lymphocytes (CBC) 0.9 K/uL (0.7-4.9); Absolute Monocytes 0.5 K/uL (0.1-1.3); Basophils % 1.1 % (0-1.3); Eosinophils % 1.7 % (0-4.4); Hematocrit 42.5 % (39.6-49.0); Lymphocytes % 20.8 % (15.3-44.8); MCV 98.4 fL (80-100); MPV 10.5 fL (7.6-11.3); Monocytes % 10.6 % (3.3-12.3); RBC Red Blood Cell Count 4.32 M/uL (4.33-5.43)
--- NOTE | 2018-02-01 10:21 | RAD REPORT ---
EXAM DESCRIPTION: CTSpine Lumbar Wo Con02/01/2018 10:07 am CLINICAL HISTORY: Left hip pain/left leg radiculopathy for 5 days TECHNIQUE: Computed axial tomography lumbar spine was obtained with coronal and sagittal reconstruct ion. All CT scans are performed using dose optimization technique as appropriate and may include automated exposure control or mA/KV adjustment according to patient size. FINDINGS: No fracture is seen. No dislocation is noted. L1-2 appears unremarkable Mild spondylosis involves L2-3 Disc bulge, osteophytes, ligamentum flavum and facet hypertrophy is present at L3-4. Thecal sac measu res approximately 5 millimeters. Moderate narrowing of the neural foramina bilaterally is seen. Vacuu m phenomena is noted. Vacuum phenomena is present at L4-5 with disc thinning. Disc bulge is present. Osteophytes and facet hypertrophy is seen. Mild narrowing of the thecal sac is present. Moderate narrowing of the neural fo ramina bilaterally is noted. Mild spondylosis L5-S1 is present. 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 Moderate bi lateral foraminal stenosis is seen.
[2018-02-01 10:32] LABS: Albumin 3.7 g/dL (3.4-5.0); Bilirubin Total 0.4 mg/dL (0.2-1.0); Potassium 3.7 mmol/L (3.5-5.1); Protein, Total 7.2 g/dL (6.4-8.2)
--- NOTE | 2018-02-01 10:45 | RAD REPORT ---
EXAM DESCRIPTION: RAD - Pelvis - 02/01/2018 10:36 am CLINICAL HISTORY: Pelvic pain FINDINGS: No fracture or dislocation is seen. The bones are osteoporotic. 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
--- NOTE | 2018-02-01 11:40 | EDPHYS ---
Physician Documentation [facility] Name: Simone Narvaez Sr Age: 82 yrs Sex: Male : 1935 Arrival Date: 02/01/2018 Time: 09:31 Bed 23 Private MD: ED Physician Phillip Narvaez HPI: 02/01 09:43 This 82 yrs old Male presents to ER via EMS with complaints of Hip Pain. david 09:43 The patient or guardian reports pain. david Historical: - Allergies: 09:40 Codeine; hb 09:40 Gluten Protein; hb - Home Meds: 09:40 alendronate 70 mg/75 mL Oral soln 75 mL once wkly [Active]; amlodipine 2.5 mg tab 1 tab hb once daily for Hypertension [Active]; B-12 DOTS 500 mcg Oral tab [Active]; fenofibrate Oral [Active]; folic acid 400 mcg Oral tab 1 tab once daily [Active]; gabapentin 300 mg Oral cap 1 cap 3 times per day for Postherpetic Neuralgia [Active]; Glipizide Oral [Active]; lamotrigine Oral [Active]; levocetirizine 5 mg Oral tab 1 tab once daily [Active]; losartan-hydrochlorothiazide 50-12.5 mg Oral tab 1 tab once daily for Hypertension [Active]; Osteo Bi-Flex Oral [Active]; pioflitazone 15 mg 1 tab [Active]; Xarelto Oral [Active]; Vision Oral [Active]; - PMHx: 09:40 Hypertension; pre-diabetic; DVT; hb - PSHx: 09:40 Neck surgery; IVC Filter; hb - Immunization history:: Adult Immunizations up to date. - Social history:: Smoking status: Patient/guardian denies using tobacco. - Ebola Screening: : No symptoms or risks identified at this time. ROS: 09:44 Constitutional: Negative for fever, chills, and weight loss, Eyes: Negative for injury, david pain, redness, and discharge, ENT: Negative for injury, pain, and discharge, Neck: Negative for injury, pain, and swelling, Cardiovascular: Negative for chest pain, palpitations, and edema, Respiratory: Negative for shortness of breath, cough, wheezing, and pleuritic chest pain, Abdomen/GI: Negative for abdominal pain, nausea, vomiting, diarrhea, and constipation, : Negative for injury, bleeding, discharge, and swelling, MS/Extremity: Negative for injury and deformity, Skin: Negative for injury, rash, and discoloration, Neuro: Negative for headache, weakness, numbness, tingling, and seizure, Psych: Negative for depression, anxiety, suicide ideation, homicidal ideation, and hallucinations, Allergy/Immunology: Negative for hives, rash, and allergies, Endocrine: Negative for neck swelling, polydipsia, polyuria, polyphagia, and marked weight changes, Hematologic/Lymphatic: Negative for swollen nodes, abnormal bleeding, and unusual bruising. 09:44 Back: Positive for decreased range of motion, pain with movement, radiated pain. Exam: 09:44 Constitutional: This is a well developed, well nourished patient who is awake, alert, dvaid and in no acute distress. Head/Face: Normocephalic, atraumatic. Eyes: Pupils equal round and reactive to light, extra-ocular motions intact. Lids and lashes normal. Conjunctiva and sclera are non-icteric and not injected. Cornea within normal limits. Periorbital areas with no swelling, redness, or edema. ENT: Nares patent. No nasal discharge, no septal abnormalities noted. Tympanic membranes are normal and external auditory canals are clear. Oropharynx with no redness, swelling, or masses, exudates, or evidence of obstruction, uvula midline. Mucous membranes moist. Neck: Trachea midline, no thyromegaly or masses palpated, and no cervical lymphadenopathy. Supple, full range of motion without nuchal rigidity, or vertebral point tenderness. No Meningismus. Chest/axilla: Normal chest wall appearance and motion. Nontender with no deformity. No lesions are appreciated. Cardiovascular: Regular rate and rhythm with a normal S1 and S2. No gallops, murmurs, or rubs. Normal PMI, no JVD. No pulse deficits. Respiratory: Lungs have equal breath sounds bilaterally, clear to auscultation and percussion. No rales, rhonchi or wheezes noted. No increased work of breathing, no retractions or nasal flaring. Abdomen/GI: Soft, non-tender, with normal bowel sounds. No distension or tympany. No guarding or rebound. No evidence of tenderness throughout. Male : Normal genitalia with no discharge or lesions. Skin: Warm, dry with normal turgor. Normal color with no rashes, no lesions, and no evidence of cellulitis. MS/ Extremity: Pulses equal, no cyanosis. Neurovascular intact. Full, normal range of motion. Neuro: Awake and alert, GCS 15, oriented to person, place, time, and situation. Cranial nerves II-XII grossly intact. Motor strength 5/5 in all extremities. Sensory grossly intact. Cerebellar exam normal. Normal gait. Psych: Awake, alert, with orientation to person, place and time. Behavior, mood, and affect are within normal limits. 09:44 Back: pain, that is mild, ROM is painful, normal spinal alignment noted, CVA tenderness, is absent. Vital Signs: 09:35 BP 176 / 70; Pulse 60; Resp 16; Temp 98.1; Pulse Ox 100% on R/A; Pain 3/10; hb 10:30 BP 168 / 66; Pulse 61; Resp 14; Pulse Ox 90% on R/A; hb 10:35 Pulse Ox 99% on 2 lpm NC; hb 11:20 BP 157 / 60; Pulse 60; Resp 15; Pulse Ox 100% on 2 lpm NC; hb MDM: 09:35 Patient medically screened. [facility] 09:45 Data reviewed: vital signs, nurses notes, lab test result(s), EKG, radiologic studies, [facility] plain films. 02/01 09:43 Order name: CBC with Diff; Complete Time: 11:33 [facility] 02/01 09:43 Order name: Comprehensive Metabolic Panel; Complete Time: 11:33 [facility] 02/01 09:43 Order name: CT Lumbar Spine Wo Con; Complete Time: 11:33 [facility] 02/01 12:03 Order name: Urine Microscopic Only 02/01 12:11 Order name: Urine Dipstick--Ancillary (enter results) 02/01 12:18 Order name: Urine Culture [facility] 02/01 09:44 Order name: Pelvis XRAY; Complete Time: 11:33 [facility] 02/01 09:43 Order name: Urine Dipstick-Ancillary (obtain specimen); Complete Time: 12:07 [facility] Administered Medications: 09:58 Drug: NS 0.9% 500 ml Route: IV; Rate: bolus; Site: right antecubital; hb 10:30 Follow up: Response: No adverse reaction; IV Status: Completed infusion hb 09:58 Drug: fentaNYL (PF) 25 mcg Route: IVP; Site: right antecubital; hb 10:30 Follow up: Response: No adverse reaction; Pain is decreased hb 09:58 Drug: Zofran 4 mg Route: IVP; Site: right antecubital; hb 10:30 Follow up: Response: No adverse reaction hb 09:58 Drug: Decadron - Dexamethasone 10 mg Route: IVP; Site: right antecubital; hb 10:30 Follow up: Response: No adverse reaction hb 11:19 Drug: NS 0.9% 500 ml Route: IV; Rate: bolus; Site: right antecubital; hb 11:45 Follow up: Response: No adverse reaction; IV Status: Completed infusion hb 12:28 Drug: fentaNYL (PF) 25 mcg Route: IVP; Site: right antecubital; hb 12:46 Follow up: Response: No adverse reaction hb 12:47 Drug: Rocephin - (cefTRIAXone) 1 grams Route: IVPB; Infused Over: 30 mins; Site: left hb antecubital; 12:47 Follow up: IV Status: Completed infusion hb 12:47 Drug: Bactrim (160 mg-800 mg (DS) 1 tablet Route: PO; hb 12:47 Follow up: Response: Medication administered at discharge. hb Disposition: 02/01/18 11:39 Discharged to Home. Impression: Spondylolysis, lumbar region, Sciatica, left side, Unspecified kidney failure, Cystitis. - Condition is Stable. - Discharge Instructions: Dysuria, Sciatica, Sciatica, [id number], Chronic Kidney Disease, Adult, [id number]. - Prescriptions for Tramadol 50 mg Oral Tablet - take 1 tablet by ORAL route every 8 hours as needed; 30 tablet. Medrol (Beau) 4 mg Oral Tablets, Dose Pack - take 1 tablet by ORAL route as directed - follow package instructions; 1 packet. Bactrim DS 800- 160 mg Oral Tablet - take 1 tablet by ORAL route every 12 hours for 10 days; 20 tablet. - Medication Reconciliation Form, Thank You Letter, Antibiotic Education, Prescription Opioid Use form. - Follow up: Private Physician; When: 2 - 3 days; Reason: Recheck today's complaints, Continuance of care, Re-evaluation by your physician. - Problem is new. - Symptoms have improved. Signatures: Dispatcher [employer] Phillip Butler MD MD cha Baxter, Heather, RN RN Corrections: (The following items were deleted from the chart) 11:40 11:39 02/01/2018 11:39 Discharged to Home. Impression: Spondylolysis, lumbar region; david Sciatica, left side. Condition is Stable. Forms are Medication Reconciliation Form, Thank You Letter, Antibiotic Education, Prescription Opioid Use. Follow up: Private Physician; When: 2 - 3 days; Reason: Recheck today's complaints, Continuance of care, Re-evaluation by your physician. Problem is new. Symptoms have improved. [facility] 12:18 11:40 02/01/2018 11:39 Discharged to Home. Impression: Spondylolysis, lumbar region; david Sciatica, left side; Unspecified kidney failure. Condition is Stable. Forms are Medication Reconciliation Form, Thank You Letter, Antibiotic Education, Prescription Opioid Use. Follow up: Private Physician; When: 2 - 3 days; Reason: Recheck today's complaints, Continuance of care, Re-evaluation by your physician. Problem is new. Symptoms have improved. [facility] 12:52 12:18 02/01/2018 11:39 Discharged to Home. Impression: Spondylolysis, lumbar region; hb Sciatica, left side; Unspecified kidney failure; Cystitis. Condition is Stable. Discharge Instructions: Sciatica, Sciatica, [id number], Chronic Kidney Disease, Adult, [id number]. Prescriptions for Tramadol 50 mg Oral Tablet - take 1 tablet by ORAL route every 8 hours as needed; 30 tablet, Medrol (Beau) 4 mg Oral Tablets, Dose Pack - take 1 tablet by ORAL route as directed - follow package instructions; 1 packet. and Forms are Medication Reconciliation Form, Thank You Letter, Antibiotic Education, Prescription Opioid Use. Follow up: Private Physician; When: 2 - 3 days; Reason: Recheck today's complaints, Continuance of care, Re-evaluation by your physician. Problem is new. Symptoms have improved. [facility]
--- NOTE | 2018-02-01 11:40 | ER ---
Nurse's Notes [facility] Name: Simone Narvaez Sr Age: 82 yrs Sex: Male : 1935 Arrival Date: 02/01/2018 Time: 09:31 Bed 23 Private MD: Diagnosis: Spondylolysis, lumbar region;Sciatica, left side;Unspecified kidney failure;Cystitis Presentation: 02/01 09:35 Presenting complaint: EMS states: Worsening left hip pain x 5 days. Denies injury. hb Transition of care: patient was not received from another setting of care. Onset of symptoms was January 28, 2018. Risk Assessment: Do you want to hurt yourself or someone else? Patient reports no desire to harm self or others. Initial Sepsis Screen: Does the patient meet any 2 criteria? No. Patient's initial sepsis screen is negative. Does the patient have a suspected source of infection? No. Patient's initial sepsis screen is negative. Care prior to arrival: Medication(s) given: Toradol 30mg IVP IV initiated. 20 GA, in the right antecubital area. 09:35 Method Of Arrival: EMS: [facility] 09:35 Acuity: SVEN 3 hb Triage Assessment: 09:40 General: Appears in no apparent distress. uncomfortable, Behavior is calm, cooperative. hb Pain: Complains of pain in left hip Pain radiates to left lower leg Pain currently is 3 out of 10 on a pain scale. at worst was 10 out of 10 on a pain scale. EENT: No signs and/or symptoms were reported regarding the EENT system. Neuro: Level of Consciousness is awake, alert, obeys commands, Oriented to person, place, time, situation. Cardiovascular: Heart tones S1 S2 present Capillary refill < 3 seconds Patient's skin is warm and dry. Respiratory: Airway is patent Respiratory effort is even, unlabored, Respiratory pattern is regular, symmetrical, Breath sounds are clear bilaterally. GI: No signs and/or symptoms were reported involving the gastrointestinal system. : No signs and/or symptoms were reported regarding the genitourinary system. Derm: No signs and/or symptoms reported regarding the dermatologic system. Skin is intact, is healthy with good turgor. Musculoskeletal: Reports pain in left hip. Historical: - Allergies: 09:40 Codeine; hb 09:40 Gluten Protein; hb - Home Meds: 09:40 alendronate 70 mg/75 mL Oral soln 75 mL once wkly [Active]; amlodipine 2.5 mg tab 1 tab hb once daily for Hypertension [Active]; B-12 DOTS 500 mcg Oral tab [Active]; fenofibrate Oral [Active]; folic acid 400 mcg Oral tab 1 tab once daily [Active]; gabapentin 300 mg Oral cap 1 cap 3 times per day for Postherpetic Neuralgia [Active]; Glipizide Oral [Active]; lamotrigine Oral [Active]; levocetirizine 5 mg Oral tab 1 tab once daily [Active]; losartan-hydrochlorothiazide 50-12.5 mg Oral tab 1 tab once daily for Hypertension [Active]; Osteo Bi-Flex Oral [Active]; pioflitazone 15 mg 1 tab [Active]; Xarelto Oral [Active]; Vision Oral [Active]; - PMHx: 09:40 Hypertension; pre-diabetic; DVT; hb - PSHx: 09:40 Neck surgery; IVC Filter; hb - Immunization history:: Adult Immunizations up to date. - Social history:: Smoking status: Patient/guardian denies using tobacco. - Ebola Screening: : No symptoms or risks identified at this time. Screenin:42 Abuse screen: Denies threats or abuse. Denies injuries from another. Nutritional hb screening: No deficits noted. Tuberculosis screening: No symptoms or risk factors identified. Fall Risk Total Hou Fall Scale indicates Low Risk Score (25-44 pts). Fall prevention measures have been instituted. Side Rails Up X 2 Frequent Obs/Assesments occuring Family Present and informed to notify staff if they need to leave bedside As available Patient and Family Educated on Fall Prevention Program and strategies. Assessment: 09:42 General: see triage assessment. hb 10:30 Reassessment: Patient appears in no apparent distress at this time. Patient and/or hb family updated on plan of care and expected duration. Pain level reassessed. Patient is alert, oriented x 3, equal unlabored respirations, skin warm/dry/pink. Awaiting radiology results and urine at this time. Urinal provided for urine specimen. Family remains at bedside. 11:00 Reassessment: Awaiting urine specimen, Dr. Narvaez notified. hb 11:30 Reassessment: Patient appears in no apparent distress at this time. No changes from hb previously documented assessment. Patient and/or family updated on plan of care and expected duration. Pain level reassessed. Patient is alert, oriented x 3, equal unlabored respirations, skin warm/dry/pink. 11:45 Reassessment: Awaiting urine specimen, Dr. Narvaez aware. hb 12:30 Reassessment: Patient appears in no apparent distress at this time. Patient and/or hb family updated on plan of care and expected duration. Pain level reassessed. Patient is alert, oriented x 3, equal unlabored respirations, skin warm/dry/pink. Vital Signs: 09:35 BP 176 / 70; Pulse 60; Resp 16; Temp 98.1; Pulse Ox 100% on R/A; Pain 3/10; hb 10:30 BP 168 / 66; Pulse 61; Resp 14; Pulse Ox 90% on R/A; hb 10:35 Pulse Ox 99% on 2 lpm NC; hb 11:20 BP 157 / 60; Pulse 60; Resp 15; Pulse Ox 100% on 2 lpm NC; hb ED Course: 09:31 Patient arrived in ED. hb 09:35 Phillip Narvaez MD is Attending Physician. david 09:37 Triage completed. hb 09:37 Arm band placed on left wrist. hb 09:42 Patient has correct armband on for positive identification. Placed in gown. Bed in low hb position. Call light in reach. Side rails up X2. 09:42 Maintain EMS IV. Dressing intact. Good blood return noted. Site clean \T\ dry. Gauge \T\ hb site: 20g RIGHT AC. 09:45 Radha Chun, RN is Primary Nurse. hb 10:07 CT Lumbar Spine Wo Con In Process Unspecified. EDMS 10:08 CT completed. Patient tolerated procedure well. Patient moved to CT via stretcher. [email or web address] Patient moved to radiology. 10:15 X-ray completed. Patient tolerated procedure well. Patient moved back from radiology. sw 10:15 Pelvis XRAY In Process Unspecified. EDMS 12:52 No provider procedures requiring assistance completed. IV discontinued, intact, hb bleeding controlled, No redness/swelling at site. Pressure dressing applied. Administered Medications: 09:58 Drug: NS 0.9% 500 ml Route: IV; Rate: bolus; Site: right antecubital; hb 10:30 Follow up: Response: No adverse reaction; IV Status: Completed infusion hb 09:58 Drug: fentaNYL (PF) 25 mcg Route: IVP; Site: right antecubital; hb 10:30 Follow up: Response: No adverse reaction; Pain is decreased hb 09:58 Drug: Zofran 4 mg Route: IVP; Site: right antecubital; hb 10:30 Follow up: Response: No adverse reaction hb 09:58 Drug: Decadron - Dexamethasone 10 mg Route: IVP; Site: right antecubital; hb 10:30 Follow up: Response: No adverse reaction hb 11:19 Drug: NS 0.9% 500 ml Route: IV; Rate: bolus; Site: right antecubital; hb 11:45 Follow up: Response: No adverse reaction; IV Status: Completed infusion hb 12:28 Drug: fentaNYL (PF) 25 mcg Route: IVP; Site: right antecubital; hb 12:46 Follow up: Response: No adverse reaction hb 12:47 Drug: Rocephin - (cefTRIAXone) 1 grams Route: IVPB; Infused Over: 30 mins; Site: left hb antecubital; 12:47 Follow up: IV Status: Completed infusion hb 12:47 Drug: Bactrim (160 mg-800 mg (DS) 1 tablet Route: PO; hb 12:47 Follow up: Response: Medication administered at discharge. hb Outcome: 11:39 Discharge ordered by MD. hernandez 12:52 Discharged to home ambulatory. hb 12:52 Condition: stable 12:52 Discharge instructions given to patient, Instructed on discharge instructions, follow up and referral plans. medication usage, Demonstrated understanding of instructions, follow-up care, medications, Prescriptions given X 3. 12:52 Patient left the ED. hb Addendum: 02/06/2018 08:21 Addendum: Culture Results: Positive urine culture. No further action required. Bacteria a a5 sensitive to prescribed antibiotic. Signatures: Dispatcher [employer] EDMS Phillip Narvaez MD MD cha Garcia, Jessica [email or web address] Calderon, Audri, RN RN [id number] Angela Osei Heather, RN RN hb
[2018-02-01 12:27] LABS: Urine Bacteria >50 /HPF (NONE SEEN); Urine Culture Reflex Order REFLEXED; Urine RBC <5 /HPF (NONE SEEN)
[2018-02-01 12:33] LABS: Urine Blood TRACE (NEG); Urine Glucose NEGATIVE (NEG); Urine Protein NEGATIVE (NEG); Urine Specific Gravity 1.015 (1.005-1.030); Urine pH 5.5 (5.0-7.0)
[2018-02-01] MEDS ORDERED: CEFTRIAXONE/SWI 1gm 1 GM/10 ML SYR ONE (12:41)
[2018-02-01] MEDS ORDERED: SMZ./TMP. 800/160 MG TABLET ONE (12:41)
== END 2018-02-01 12:52 | disposition home or self-care (01) ==
LOC: ER 09:30
DX: M47.896 Other spondylosis, lumbar region (principal); M54.32 Sciatica, left side; N30.90 Cystitis, unspecified without hematuria; I10 Essential (primary) hypertension; Z86.718 Personal history of other venous thrombosis and embolism; R73.03 Prediabetes; Z79.01 Long term (current) use of anticoagulants; Z88.5 Allergy status to narcotic agent; Z91.018 Allergy to other foods
CPT/HCPCS: 36415; 72131; 72170; 80053; 85025; 87086; 87088; J0696; J1100; J2405; J3010; 81003; 81015; 87077; 87186; 99284

== ENCOUNTER 2018-08-01 19:42 | Emergency (ER) | payer MEDICARE ==
--- OUTSIDE RECORDS SUMMARY | 2018-08-01 19:49 | XMS REPORT | Continuity of Care Document ---
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 studies at a clinically appropriat e interval andanticar diolipin antibody assays, is recommende d.Interpre tation performed at [facility]. HEMATOLOGY Protein S 75 % 54 - 137 12/12 Fun [facility] HEMATOLOGY F5 Leiden FACTOR V 12/12 Intrp LEIDEN: [facility] NegativeIN TERPRETATI ON:Molecul ar analysis for the [...] ase chain reaction/F RET detection) kit, [employer]isel [email or web address] LC Instrument and the Gametime r 1.2 Instrument . A 222-bp fragment [...] data. This assay has been validated by [facility] . HEMATOLOGY F5 Leiden Negative 12/12 PCR [facility] (12/13/15 8:58 AM) HEMATOLOGY F2 Mut FACTOR II 12/12 Interp PT: /2015 [facility] NegativeIN TERPRETATI ON:Molecul ar analysis for the Factor II (Prothromb in) [id number] mutation wasnegativ e. Other causes of elevated [...] FDA-cleare d Grisel Factor II (Prothromb in) [id number] IVD(Polyme rase chain reaction/F RET detection) kit, [email or web address] Pure LC Instrument and the [employer]isel BackTracke r 1.2 Instrument . A 165-bp fragment of Factor IIgene(FII ) containing the Factor II [id number] sequence is amplified in theassay. The assay is designed to detect the [id number] mutation only. Othercause s of elevated prothrombi n levels and hereditary forms of venousthro mbosis are not ruled out. However, the melting curve analysis mayimplica te the presence of a possible rare mutation at position [id number] (Furtherte sting will be recommende d in the report). A minimum detection level is 198copies of Factor II per reaction. The level of agreement between the FactorII(P rothrombin ) [id number] Kit and sequence analysis was 98.9%. The test resultmust be interprete d along with the patient's clinical history and revelant laboratory data. This assay has been validated by [facility] . HEMATOLOGY F2 Mutation Negative 12/12 [facility] (12/13/15 8:58 AM) HEMATOLOGY AT III Func 94 % 77 - 140 12/12 [facility] IMMUNOLOGY Cardiolipin null <=19.9 GPL 12/12 IgG /2015 [facility] IMMUNOLOGY Cardiolipin null <=19.9 APL 12/12 IgA [facility] IMMUNOLOGY Cardiolipin 0.5 <=19.9 MPL 12/12 IgM MPL-U/mL [facility] IMMUNOLOGY Beta2-Glycop 0.3 <=19.9 12/12 rotein IgM unit/mL unit/mL [facility] IMMUNOLOGY Beta2-Glycop null <=19.9 12/12 rotein IgA unit/mL /2015 [facility] IMMUNOLOGY Beta2-Glycop null <=19.9 12/12 rotein IgG unit/mL [facility] IMMUNOLOGY WADE Negative 1 Negative 12/12 Result Comment: [facility] (12/13/15 8:58 AM) Marked Cytoplamic staining present. IMMUNOLOGY Homocyst Tot 16.7 3.7 - 13.9 12/12 umol/L [facility] SPECIAL PSA 0.68 ng/mL 0.00 - 12/12 CHEMISTRY 4. [facility] TUMOR CEA 6.1 ng/mL 0.0 - 3.0 12/12 MARKERS [facility] CHEM PANEL Albumin Lvl 4.0 g/dL 3.5 - 5.0 12/12 [facility] CHEM PANEL ALT 21 unit/L 0 - 65 12/12 [facility] CHEM PANEL Calcium Lvl 9.1 mg/dL 8.5 - 10.5 12/12 [facility] CHEM PANEL Total 7.4 g/dL 6.4 - 8.4 12/12 Protein [facility] CHEM PANEL eGFR 38 12/12 Result Comment: The eGFR is calculated using the CKD-EPI formula. In most young, healthy individuals the eGFR will be >90 mL/ min/1.73m2. The eGFR declines with age. An eGFR of 60-89 may be normal in mL/min/1.7 /2015 some populations, particularly the elderly, for whom the CKD-EPI formula has not been extensively validated. Use of the eGFR is not recommended in the following populations: [facility] 3m2 Individuals with unstable creatinine concentrations, including [...] Total 0.4 mg/dL 0.2 - 1.3 12/12 /2015 [facility] CHEM PANEL AST 16 unit/L 0 - 37 12/12 [facility] CHEM PANEL Alk Phos 65 unit/L 39 - 136 12/12 [facility] CHEM PANEL Glucose Lvl 176 mg/dL 70 - 99 12/12 [facility] CHEM PANEL BUN 26 mg/dL 7 - 22 12/12 [facility] CHEM PANEL CO2 28 meq/L 24 - 32 12/12 [facility] CHEM PANEL Creatinine 1.70 mg/dL 0.50 - 12/12 MH Lvl 1.40 /2015 [facility] CHEM PANEL Sodium Lvl 135 meq/L 135 - 145 12/12 [facility] CHEM PANEL Chloride Lvl 101 meq/L 95 - 109 12/12 [facility] CHEM PANEL Potassium 3.9 meq/L 3.5 - 5.1 12/12 Lvl /2015 [facility] CHEM PANEL A/G Ratio 1.2 0.7 - 1.6 12/12 [facility] CHEM PANEL B/C Ratio 15 6 - 25 12/12 [facility] CHEM PANEL Globulin 3.4 g/dL 2.0 - 4.0 12/12 [facility] CHEM PANEL AGAP 9.9 meq/L 10.0 - 12/12 MH 20.0 [facility] HEMATOLOGY Basophils 1.1 % 0.0 - 1.0 12/12 [facility] HEMATOLOGY Eosinophils 2.4 % 0.0 - 4.0 12/12 [facility] HEMATOLOGY Lymphocytes 23.1 % 20.0 - 12/12 MH 40.0 [facility] HEMATOLOGY Monocytes 11.3 % 2.0 - 12.0 12/12 [facility] HEMATOLOGY Segs 62.1 % 45.0 - 12/12 MH 75.0 /2015 [facility] HEMATOLOGY Eosinophils 0.1 K/CMM 0.0 - 0.5 12/12 MH # /2015 [facility] HEMATOLOGY Basophils # 0.1 K/CMM 0.0 - 0.2 12/12 [facility] HEMATOLOGY Lymphocytes 1.3 K/CMM 1.0 - 5.5 12/12 MH # /2015 [facility] HEMATOLOGY Monocytes # 0.6 K/CMM 0.0 - 0.8 12/12 [facility] HEMATOLOGY Segs-Bands # 3.5 K/CMM 1.5 - 8.1 12/12 [facility] HEMATOLOGY Platelet 144 K/CMM 133 - 450 12/12 [facility] HEMATOLOGY MPV 11.6 fL 7.4 - 10.4 12/12 [facility] HEMATOLOGY RBC 4.65 M/CMM 4.70 - 12/12 MH 6.10 [facility] HEMATOLOGY Hgb 15.2 g/dL 14.0 - 12/12 18.0 [facility] HEMATOLOGY WBC 5.7 K/CMM 3.7 - 10.4 12/12 [facility] MCHC 34.1 g/dL 32.0 - 12/12 36.0 /2015 [facility] HEMATOLOGY RDW 13.1 % 11.5 - 12/12 14. [facility] HEMATOLOGY MCV 95.7 fL 80.0 - 12/12 94.0 [facility] MCH 32.6 pg 27.0 - 12/12 31.0 [facility] Hct 44.5 % 42.0 - 12/12 54.0 /2015 [facility] HEMATOLOGY Protein S 75 % 54 - 137 12/11 Func [facility] HEMATOLOGY Protein C 162 % 72 - 147 12/11 Func [facility] HEMATOLOGY AT III Func 86 % 77 - 140 12/11 [facility] IMMUNOLOGY Cardiolipin null <=19.9 GPL 12/11 IgG [facility] Cardiolipin null <=19.9 APL 12/11 IgA [facility] Cardiolipin 0.4 <=19.9 MPL 12/11 IgM MPL-U/mL [facility] IMMUNOLOGY Beta2-Glycop 0.3 <=19.9 12/11 rotein IgM unit/mL unit/mL /2015 [facility] IMMUNOLOGY Beta2-Glycop null <=19.9 12/11 rotein IgG unit/mL /2015 [facility] IMMUNOLOGY Beta2-Glycop null <=19.9 12/11 rotein IgA unit/mL /2015 [facility] CHEM PANEL A/G Ratio 1.1 0.7 - 1.6 12/11 [facility] CHEM PANEL AGAP 7.9 meq/L 10.0 - 12/11 20.0 [facility] CHEM PANEL B/C Ratio 16 6 - 25 12/11 [facility] CHEM PANEL Globulin 3.6 g/dL 2.0 - 4.0 12/11 [facility] CHEM PANEL eGFR 36 12/11 Result Comment: [...] is not recommended in the following populations: [place] [id number] Individuals with unstable creatinine concentrations, including patients [...] Phos 82 unit/L 39 - 136 12/11 [facility] CHEM PANEL AST 13 unit/L 0 - 37 12/11 [facility] CHEM PANEL Bili Total 0.4 mg/dL 0.2 - 1.3 12/11 [facility] CHEM PANEL Total 7.6 g/dL 6.4 - 8.4 12/11 [facility] CHEM PANEL Albumin Lvl 4.0 g/dL 3.5 - 5.0 12/11 [facility] CHEM PANEL ALT 20 unit/L 0 - 65 12/11 [facility] CHEM PANEL CO2 30 meq/L 24 - 32 12/11 [facility] CHEM PANEL Calcium Lvl 8.5 mg/dL 8.5 - 10.5 12/11 [facility] CHEM PANEL Chloride Lvl 100 meq/L 95 - 109 12/11 [facility] CHEM PANEL Glucose Lvl 247 mg/dL 70 - 99 12/11 [facility] CHEM PANEL BUN 29 mg/dL 7 - 22 12/11 [facility] CHEM PANEL Sodium Lvl 134 meq/L 135 - 145 12/11 [facility] CHEM PANEL Potassium 3.9 meq/L 3.5 - 5.1 12/11 MH Lvl [facility] CHEM PANEL Creatinine 1.78 mg/dL 0.50 - 12/11 MH Lvl 1.40 /2015 [facility] HEMATOLOGY Segs-Bands # 3.4 K/CMM 1.5 - 8.1 12/11 /2015 [facility] HEMATOLOGY Basophils 1.2 % 0.0 - 1.0 12/11 /2015 [facility] HEMATOLOGY Eosinophils 1.9 % 0.0 - 4.0 12/11 /2015 [facility] HEMATOLOGY Lymphocytes 20.6 % 20.0 - 12/11 MH 40.0 /2015 [facility] HEMATOLOGY Monocytes 10.0 % 2.0 - 12.0 12/11 /2015 [facility] HEMATOLOGY Eosinophils 0.1 K/CMM 0.0 - 0.5 12/11 MH # /2016 [facility] HEMATOLOGY Basophils # 0.1 K/CMM 0.0 - 0.2 12/11 /2015 [facility] HEMATOLOGY Monocytes # 0.5 K/CMM 0.0 - 0.8 12/11 /2015 [facility] HEMATOLOGY Lymphocytes 1.1 K/CMM 1.0 - 5.5 12/11 MH # /2015 [facility] HEMATOLOGY Segs 66.3 % 45.0 - 12/11 MH 75.0 /2015 [facility] HEMATOLOGY MCH 31.9 pg 27.0 - 12/11 MH 31.0 [facility] HEMATOLOGY RBC 4.46 M/CMM 4.70 - 12/11 MH 6.10 /2015 [facility] HEMATOLOGY Hgb 14.2 g/dL 14.0 - 12/11 MH 18.0 /2015 [facility] HEMATOLOGY Hct 43.1 % 42.0 - 12/11 MH 54.0 /2015 [facility] HEMATOLOGY MCV 96.6 fL 80.0 - 12/11 94.0 /2015 [facility] HEMATOLOGY WBC 5.2 K/CMM 3.7 - 10.4 12/11 /2015 [facility] HEMATOLOGY RDW 13.1 % 11.5 - 12/11 MH 14.5 /2015 [facility] HEMATOLOGY MCHC 33.0 g/dL 32.0 - 12/11 MH 36.0 /2015 [facility] HEMATOLOGY Platelet 157 K/CMM 133 - 450 12/11 /2015 [facility] HEMATOLOGY MPV 10.2 fL 7.4 - 10.4 12/11 /2015 [facility] HEMATOLOGY INR 1.14 0.85 - 12/11 MH 1.17 [facility] HEMATOLOGY PT 14.9 s 12.0 - 12/11 MH 14.7 /2015 [facility] HEMATOLOGY PTT 32.1 s 22.9 - 12/11 MH 35.8 /2015 [facility] Chest Chest 1view Chest 1view DX 12/12/2015 2:38 PM CDT 12/11 - 1view DX - [facility] Ordering Physician: Nikolas Chritsie MD Read by: Jacob Wilder MD Dictated [...] No acute abnormality of the chest. SL: [id number] Spine Spine Patient Name: ONEAL PERSAUD 12/11 [facility] OPID thoracic 3 thoracic - [facility] views DX views DX : 1935; Age: 79 years y/o Male MR: [id number] Read by: Billy Zee MD Dictated Date/time: [...] acute fracture or dislocation. No spondylolisthesis. SL: [id number] Spine Spine lumbar Patient Name: ONEAL PERSAUD 12/11 [facility] OPID lumbar 2 2 or 3 views /2015 - [place] or 3 views DX : 1935; Age: 79 years y/o Male DX MR: [id number] Read by: Billy Zee MD Dictated Date/time: [...] calcification at the abdomen and pelvis. SL: [id number] Chest 2 Chest 2 Patient Name: ONEAL PERSAUD 12/11 [facility] OPID views DX views DX - [facility] : 1935; Age: 79 years y/o Male MR: [id number] Read by: Billy Zee MD Dictated Date/time: [...] chest. IMPRESSION: No acute cardiopulmonary process. SL: [id number] Bone Bone Density - Bone Density DXA [employer] [place] 04/07 - [facility] Density DXA [facility] /2013 - [facility] DXA [employer] [place] MALE BONE DENSITY [...] recommended. Dr. Luci Wilson M.D., aas/fior:04/10/2014 11:01:55 Nurse First Aid: Hiwot IGLESIAS)([place]uz[place]), [facility] - Outpatient Imaging Vital Signs Vital Sign Value Date Comments Source Heart Rate 55 01/26/2017 [facility] Systolic (mm Hg) 157 01/26/2017 [facility] Diastolic (mm Hg) 70 01/26/2017 [facility] Temperature Oral (F) 98.6 F 01/26/2017 [facility] Respitory Rate 12 01/26/2017 [facility] Weight 75 01/26/2017 [facility] BMI Calculated 26.69 01/26/2017 [facility] Height 167.64 cm 01/26/2017 [facility] Respitory Rate 18 01/26/2017 [facility] Heart Rate 70 01/26/2017 [facility] Temperature Oral (F) 98.1 F 01/26/2017 [facility] Systolic (mm Hg) 122 01/26/2017 [facility] Diastolic (mm Hg) 70 01/26/2017 [facility] Systolic (mm Hg) 154 01/05/2017 [facility] Diastolic (mm Hg) 72 01/05/2017 [facility] Respitory Rate 10 01/05/2017 [facility] Systolic (mm Hg) 167 01/05/2017 [facility] Diastolic (mm Hg) 77 01/05/2017 [facility] Respitory Rate 10 01/05/2017 [facility] Systolic (mm Hg) 169 01/05/2017 [facility] Diastolic (mm Hg) 77 01/05/2017 [facility] Respitory Rate 10 01/05/2017 [facility] Height 165.1 cm 01/05/2017 [facility] Weight 79.091 01/05/2017 [facility] BMI Calculated 29.02 01/05/2017 [facility] Temperature Oral (F) 97.6 F 01/05/2017 [facility] Weight 75.909 09/23/2016 [facility] BMI Calculated 28.73 09/23/2016 [facility] Height 162.56 cm 09/23/2016 [facility] Weight 74.545 05/12/2016 [facility] BMI Calculated 27.35 05/12/2016 [facility] Height 165.1 cm 05/12/2016 [facility] Weight 75.455 05/02/2016 [facility] BMI Calculated 27.68 05/02/2016 [facility] Height 165.1 cm 05/02/2016 [facility] Temperature Oral (F) 97.5 F 04/18/2016 [facility] Heart Rate 59 04/18/2016 [facility] Systolic (mm Hg) 128 04/18/2016 [facility] Diastolic (mm Hg) 70 04/18/2016 [facility] Respitory Rate 18 04/18/2016 [facility] Respitory Rate 18 04/18/2016 [facility] Systolic (mm Hg) 144 04/18/2016 [facility] Diastolic (mm Hg) 71 04/18/2016 [facility] Temperature Oral (F) 97.5 F 04/18/2016 [facility] Heart Rate 56 04/18/2016 [facility] Systolic (mm Hg) 163 04/18/2016 [facility] Diastolic (mm Hg) 65 04/18/2016 [facility] Respitory Rate 18 04/18/2016 [facility] Heart Rate 54 04/18/2016 [facility] Temperature Oral (F) 97.9 F 04/18/2016 [facility] Height 165.1 cm 04/17/2016 [facility] BMI Calculated 27.21 04/17/2016 [facility] Weight 74.176 04/17/2016 [facility] Height 165.1 cm 04/17/2016 [facility] Weight 74.091 04/17/2016 [facility] BMI Calculated 27.18 04/17/2016 [facility] Systolic (mm Hg) 141 12/13/2015 [facility] Diastolic (mm Hg) 72 12/13/2015 [facility] Respitory Rate 18 12/13/2015 [facility] Heart Rate 55 12/13/2015 [facility] Heart Rate 54 12/13/2015 [facility] Respitory Rate 18 12/13/2015 [facility] Systolic (mm Hg) 156 12/13/2015 [facility] Diastolic (mm Hg) 74 12/13/2015 [facility] Respitory Rate 18 12/13/2015 [facility] Systolic (mm Hg) 142 12/13/2015 [facility] Diastolic (mm Hg) 72 12/13/2015 [facility] Heart Rate 50 12/13/2015 [facility] Temperature Oral (F) 97.8 F 12/13/2015 [facility] Temperature Oral (F) 98.8 F 12/13/2015 [facility] Temperature Oral (F) 97.7 F 12/13/2015 [facility] Height 167.64 cm 12/12/2015 [facility] Weight 72.636 12/12/2015 [facility] BMI Calculated 25.85 12/12/2015 [facility] BMI Calculated 27.52 12/12/2015 [facility] Weight 72.727 12/12/2015 [facility] Height 162.56 cm 12/12/2015 [facility] Height 167.64 cm 12/12/2015 [facility] Weight 72.727 12/12/2015 [facility] BMI Calculated 25.88 12/12/2015 [facility] Encounters Location Location Encounter Encounter Reason Attending ADM DC Status Source Details Type Number For Provider Date Date Visit OD [id number] 723.1 - PRASHANT 12/14 Active [facility] 0 [facility] [place] [facility] Outpt Diag [id number] Prashant 12/11 12/12 OP[facility] Outpatient Services 2 [place] /2015 [facility] Outpatient [id number] Prashant 12/11 12/12 MH [place] 4 [place] [facility] OBS [id number] Tajuddin 12/11 12/12 [place] Observation 0 Lety /2015 [facility] Outpatient [id number] ECHO VISIT 12/31 Active [facility] [place] Outpatient [id number] ECHO VISIT 12/31 Active [facility] [place] [facility] Outpt Diag [id number] Meena 01/21 01/22 MH [facility] Outpatient Services 3 [facility] [place] Outpatient [id number] SAE 01/31 Active [facility] 2 [place] Outpatient [id number] SAE 02/03 Active [facility] 4 [place] [facility] Outpt Diag [id number] Prashant 04/03 04/04 MH [facility]ID Outpatient Services 4 [place] [facility] Observation [id number] Laura 04/17 04/18 [place] 1 [place] /2015 [facility] Care [id number] [place] 05/01 05/31 [place] 0 [place] [facility] Outpatient [id number] [place] 05/12 05/13 MH [place] 2 [place] /2015 [facility] Outpt Diag [id number] Janny Sen 06/02 06/03 MH [facility] Outpatient Services [facility] Wound Care [id number] [place] 06/05 06/21 MH [place] 1 [place] /2015 [facility] Care [id number] Babajide 06/26 07/26 MH [place] 2 [place] /2016 [facility] Recurring [id number] Babajide 07/30 08/29 MH [place] 3 [place] /2016 [facility] Outpatient [id number] SAE 08/04 Active [facility] 5 [facility] Wound Care [id number] Babajide 09/02 10/02 [place] 4 Og [facility] Outpatient [id number] Meena 09/23 09/24 [place] 5 [facility] Outpt Diag [id number] Babajide 10/01 10/02 [facility] Outpatient Services 6 Og [facility] Wound Care [id number] Babajide 10/08 11/07 [place] 5 Og [facility] Wound Care [id number] Babajide 11/19 12/19 [place] 6 [facility] Bedded [id number] Meena 01/05 01/05 [facility] Outpatient 6 Gold [facility] Outpatient [id number] SAE 01/06 Active [facility] 6 [place] [facility] Outpt Diag [id number] Marializa 01/23 01/24 OP[facility] Outpatient Services 7 [facility] Emergency [id number] Jesusita 01/26 01/26 [place] 7 [facility] Outpatient [id number] SAE 07/09 Active [facility] 7 [place] Outpatient [id number] ECHO VISIT 07/16 [facility] Outpatient [id number] Prashant 07/16 07/17 Cardiology 8 [place] [facility] Procedures Procedure Code Date Perfomer Comments Source Cataract surgery [id number] [facility] [place] Cholecystectomy [id number] [facility] [place] Cystoscopy and [id number] [facility] transurethral biopsy [place] of prostate Local anesthetic [id number] [facility] cervical facet joint [place] nerve block Lumbar discectomy [id number] [facility] [place] Removal of thyroid [id number] [facility] nodule [place] Cataract surgery [id number] [facility] [place] Cholecystectomy [id number] [facility] [place] Cystoscopy and [id number] [facility] [place] transurethral biopsy [place] of prostate Local anesthetic [id number] [facility] [place] cervical facet joint [place] nerve block Lumbar discectomy [id number] [facility] [place] Removal of thyroid [id number] [facility] [place] nodule [place] Cataract surgery [id number] [facility] Cholecystectomy [id number] [facility] Cystoscopy and [id number] [facility] transurethral biopsy of prostate Local anesthetic [id number] [facility] cervical facet joint nerve block Lumbar discectomy [id number] [facility] Removal of thyroid [id number] [facility] nodule IVC - Insertion of [id number] [facility] inferior vena caval filter Cataract surgery [id number] Medical Group Cholecystectomy [id number] Medical Group Cystoscopy and [id number] Medical transurethral biopsy Group of prostate IVC - Insertion of [id number] [facility] inferior vena caval Group filter Local anesthetic [id number] [facility] cervical facet joint Group nerve block Lumbar discectomy [id number] Medical Group Removal of thyroid [id number] Medical nodule Group
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
[2018-08-01] MEDS ORDERED: NA CHLORIDE 0.9% 1,000 ML ONE (22:04)
[2018-08-01] MEDS ORDERED: HYDROMORPHONE HCL 0.5 MG/0.5 ML INJ ONE (22:04)
[2018-08-01] MEDS ORDERED: ONDANSETRON 4 MG/2 ML VIAL ONE (22:04)
[2018-08-01] MEDS ORDERED: DIAZEPAM 5 MG TABLET ONE (22:04)
[2018-08-01 22:15] LABS: Absolute Lymphocytes (CBC) 0.7 K/uL (0.7-4.9); Absolute Monocytes 0.6 K/uL (0.1-1.3); Absolute Neutrophil 4.8 K/uL (1.8-8.0); Basophils % 1.2 % (0-1.3); Hematocrit 40.1 % (39.6-49.0); Lymphocytes % 11.7 % (15.3-44.8); MPV 11.2 fL (7.6-11.3); Monocytes % 10.2 % (3.3-12.3); RBC Red Blood Cell Count 4.08 M/uL (4.33-5.43)
[2018-08-01 22:33] LABS: Albumin 3.7 g/dL (3.4-5.0); Bilirubin Total 0.4 mg/dL (0.2-1.0); Potassium 4.1 mmol/L (3.5-5.1); Protein, Total 6.9 g/dL (6.4-8.2)
--- NOTE | 2018-08-01 22:56 | ER ---
Nurse's Notes [facility] Name: Simone Baeza Sr Age: 82 yrs Sex: Male : 1935 Arrival Date: 08/01/2018 Time: 19:55 Bed 7 Private MD: out of town, doctor Diagnosis: Headache;Torticollis;Unspecified kidney failure Presentation: 08/01 20:03 Presenting complaint: Patient states: He has a pain in his neck for the past 3 days. He aj1 is unable to turn his head without pain. Patient states that the same thing happened to him one year ago and they diagnosed him with torticollis. Patient also reports headache for the past couple hours. Patient denies fever. Transition of care: patient was not received from another setting of care. Onset of symptoms was July 28, 2018. Risk Assessment: Do you want to hurt yourself or someone else? Patient reports no desire to harm self or others. Initial Sepsis Screen: Does the patient meet any 2 criteria? No. Patient's initial sepsis screen is negative. Does the patient have a suspected source of infection? No. Patient's initial sepsis screen is negative. Care prior to arrival: None. 20:03 Method Of Arrival: Ambulatory aj1 20:03 Acuity: SVEN 3 aj1 Triage Assessment: 20:08 General: Appears in no apparent distress. uncomfortable, Behavior is calm, cooperative, aj1 appropriate for age. Pain: Complains of pain in forehead and neck Pain currently is 10 out of 10 on a pain scale. Neuro: Level of Consciousness is awake, alert, obeys commands. Cardiovascular: Patient's skin is warm and dry. Respiratory: Airway is patent Respiratory effort is even, unlabored, Respiratory pattern is regular, symmetrical. Historical: - Allergies: 20:08 Codeine; aj1 20:08 Gluten Protein; aj1 - Home Meds: 20:08 gabapentin 300 mg Oral cap 1 cap 3 times per day for Postherpetic Neuralgia [Active]; aj1 glipizide 5 mg oral tab once daily [Active]; pioglitazone 30 mg oral tab 1 tab once daily [Active]; losartan-hydrochlorothiazide 50-12.5 mg Oral tab 1 tab once daily for Hypertension [Active]; Xarelto 20 mg oral tab once daily [Active]; lamotrigine Oral 1 tab 2 times per day [Active]; fenofibrate 54 mg oral tab once daily [Active]; amlodipine 5 mg oral tab once daily [Active]; folic acid 400 mcg Oral tab 1 tab once daily [Active]; - PMHx: 20:08 DVT; Hypertension; pre-diabetic; aj1 - Immunization history:: Flu vaccine is up to date. - Social history:: Smoking status: Patient/guardian denies using tobacco. - Ebola Screening: : Patient denies travel to an Ebola-affected area in the 21 days before illness onset. - Family history:: not pertinent. Screenin:20 Abuse screen: Denies threats or abuse. Denies injuries from another. Nutritional aa1 screening: No deficits noted. Tuberculosis screening: No symptoms or risk factors identified. Fall Risk None identified. Assessment: 20:20 General: Appears in no apparent distress. uncomfortable, Behavior is cooperative, aa1 appropriate for age, restless. Pain: Complains of pain in forehead and neck Pain began 2-3 days ago. Is continuous. Neuro: Level of Consciousness is awake, alert, obeys commands, Oriented to person, place, time, situation, Moves all extremities. Speech is normal, Facial symmetry appears normal, Pupils are PERRLA, Reports headache frontal area. Cardiovascular: Denies chest pain, diaphoresis, lightheadedness, palpitations, shortness of breath, Heart tones S1 S2 present Rhythm is regular. Respiratory: Airway is patent Respiratory effort is even, unlabored, Respiratory pattern is regular, symmetrical. GI: No signs and/or symptoms were reported involving the gastrointestinal system. : No signs and/or symptoms were reported regarding the genitourinary system. EENT: No signs and/or symptoms were reported regarding the EENT system. Derm: Skin is intact, is healthy with good turgor, Skin is pink, warm \T\ dry. Musculoskeletal: Circulation, motion, and sensation intact. Capillary refill < 3 seconds. 21:00 Reassessment: Patient appears in no apparent distress at this time. Patient and/or aa1 family updated on plan of care and expected duration. Pain level reassessed. Patient is alert, oriented x 3, equal unlabored respirations, skin warm/dry/pink. Pt still awaiting initial assessment from provider; charge nurse aware. 22:38 Reassessment: Patient appears in no apparent distress at this time. Patient and/or aa1 family updated on plan of care and expected duration. Pain level reassessed. Patient is alert, oriented x 3, equal unlabored respirations, skin warm/dry/pink. Pt back from CT. 23:22 Reassessment: Patient appears in no apparent distress at this time. Patient is alert, aa1 oriented x 3, equal unlabored respirations, skin warm/dry/pink. Discussed d/c \T\ f/u instructions with pt \T\ family via language line; denies questions or concerns regarding instructions Patient states feeling better. Vital Signs: 20:08 BP 142 / 72; Pulse 85; Resp 18; Temp 98.5; Pulse Ox 97% on R/A; Weight 78.02 kg (R); aj1 Height 5 ft. 5 in. (165.10 cm) (R); Pain 10/10; 21:00 BP 148 / 66; Pulse 63; Resp 20; Pulse Ox 98% on R/A; aa1 22:38 BP 148 / 76; Pulse 66; Resp 18; Pulse Ox 99% on R/A; aa1 23:22 BP 159 / 67; Pulse 64; Resp 18; Temp 98.4; Pulse Ox 97% on R/A; Pain 0/10; aa1 20:08 Body Mass Index 28.62 (78.02 kg, 165.10 cm) aj1 ED Course: 19:55 Patient arrived in ED. dl4 19:55 out of town, doctor is Private Physician. dl4 20:06 Triage completed. aj1 20:08 Arm band placed on Patient placed in an exam room. aj1 20:16 Phillip Narvaez MD is Attending Physician. david 20:20 Patient has correct armband on for positive identification. Placed in gown. Bed in low aa1 position. Call light in reach. Pulse ox on. NIBP on. Warm blanket given. 21:00 Ricarda Arellano, RN is Primary Nurse. aa1 22:11 Missed attempt(s): 20 gauge in right antecubital area. lt1 22:11 Inserted saline lock: 22 gauge in left antecubital area, using aseptic technique. lt1 22:11 Initial lab(s) drawn, by me, sent to lab. lt1 22:38 CT Head C Spine In Process Unspecified. EDMS 22:56 Marin Arreola MD is Referral Physician. [facility] 23:22 No provider procedures requiring assistance completed. IV discontinued, intact, aa1 bleeding controlled, No redness/swelling at site. Pressure dressing applied. Administered Medications: 21:52 CANCELLED (Duplicate Order): Zofran 2 mg IVP once; over [address] [facility] 21:57 Drug: Valium 5 mg Route: PO; fc 23:21 Follow up: Response: No adverse reaction; Pain is decreased aa1 22:37 Drug: NS 0.9% 1000 ml Route: IV; Rate: 125 ml/hr; Site: left antecubital; aa1 23:22 Follow up: IV Status: Completed infusion; IV Intake: 125ml aa1 22:38 Drug: Zofran 4 mg Route: IVP; Site: left antecubital; aa1 23:21 Follow up: Response: No adverse reaction aa1 22:41 Drug: Dilaudid 0.5 mg Route: IVP; Site: left antecubital; aa1 23:21 Follow up: Response: No adverse reaction; Pain is decreased aa1 23:21 Not Given (Duplicate Order): Dilaudid 0.5 mg IVP once aa1 Intake: 23:22 IV: 125ml; Total: 125ml. aa1 Outcome: 22:[address] . [facility] 23:22 Discharged to home ambulatory, with family. aa1 23:22 Condition: good 23:22 Discharge instructions given to patient, family, Instructed on discharge instructions, follow up and referral plans. medication usage, Demonstrated understanding of instructions, follow-up care, medications, Prescriptions given X 2. 23:24 Patient left the ED. aa1 Signatures: Dispatcher [employer] EDGerda Huerta RN RN pedrito1 Ricarda Arellano RN RN aa1 Phillip Narvaez MD MD cha Chretien, Felicia, RN RN fc Luna, David dl4 Rosi Gee [facility]
--- NOTE | 2018-08-01 22:56 | EDPHYS ---
Physician Documentation [facility] Name: Simone Baeza Sr Age: 82 yrs Sex: Male : 1935 Arrival Date: 08/01/2018 Time: 19:55 Bed 7 Private MD: out of town, doctor ED Physician Phillip Narvaez HPI: 08/01 21:48 This 82 yrs old Male presents to ER via Ambulatory with complaints of Neck david Pain, <24hrs Old. 21:48 The patient or guardian complains of decreased range of motion, pain, spasm, stiffness. david The symptoms are located on the neck. Onset: The symptoms/episode began/occurred 3 day(s) ago. Context: The problem was sustained at home, at an unknown location. Associated signs and symptoms: The patient has no apparent associated signs or symptoms. The pain does not radiate. Severity of symptoms: At their worst the symptoms were moderate, in the emergency department the symptoms are unchanged. Historical: - Allergies: 20:08 Codeine; aj1 20:08 Gluten Protein; aj1 - Home Meds: 20:08 gabapentin 300 mg Oral cap 1 cap 3 times per day for Postherpetic Neuralgia [Active]; aj1 glipizide 5 mg oral tab once daily [Active]; pioglitazone 30 mg oral tab 1 tab once daily [Active]; losartan-hydrochlorothiazide 50-12.5 mg Oral tab 1 tab once daily for Hypertension [Active]; Xarelto 20 mg oral tab once daily [Active]; lamotrigine Oral 1 tab 2 times per day [Active]; fenofibrate 54 mg oral tab once daily [Active]; amlodipine 5 mg oral tab once daily [Active]; folic acid 400 mcg Oral tab 1 tab once daily [Active]; - PMHx: 20:08 DVT; Hypertension; pre-diabetic; aj1 - Immunization history:: Flu vaccine is up to date. - Social history:: Smoking status: Patient/guardian denies using tobacco. - Ebola Screening: : Patient denies travel to an Ebola-affected area in the 21 days before illness onset. - Family history:: not pertinent. ROS: 21:48 Constitutional: Negative for fever, chills, and weight loss, Eyes: Negative for injury, david pain, redness, and discharge, ENT: Negative for injury, pain, and discharge, Cardiovascular: Negative for chest pain, palpitations, and edema, Respiratory: Negative for shortness of breath, cough, wheezing, and pleuritic chest pain, Abdomen/GI: Negative for abdominal pain, nausea, vomiting, diarrhea, and constipation, Back: Negative for injury and pain, : Negative for injury, bleeding, discharge, and swelling, MS/Extremity: Negative for injury and deformity, Skin: Negative for injury, rash, and discoloration, Neuro: Negative for headache, weakness, numbness, tingling, and seizure, Psych: Negative for depression, anxiety, suicide ideation, homicidal ideation, and hallucinations, Allergy/Immunology: Negative for hives, rash, and allergies, Endocrine: Negative for neck swelling, polydipsia, polyuria, polyphagia, and marked weight changes, Hematologic/Lymphatic: Negative for swollen nodes, abnormal bleeding, and unusual bruising. 21:48 Neck: Positive for pain with movement, pain at rest, stiffness, tenderness, of the neck. Exam: 21:48 Constitutional: This is a well developed, well nourished patient who is awake, alert, david and in no acute distress. Head/Face: Normocephalic, atraumatic. Eyes: Pupils equal round and reactive to light, extra-ocular motions intact. Lids and lashes normal. Conjunctiva and sclera are non-icteric and not injected. Cornea within normal limits. Periorbital areas with no swelling, redness, or edema. ENT: Nares patent. No nasal discharge, no septal abnormalities noted. Tympanic membranes are normal and external auditory canals are clear. Oropharynx with no redness, swelling, or masses, exudates, or evidence of obstruction, uvula midline. Mucous membranes moist. Chest/axilla: Normal chest wall appearance and motion. Nontender with no deformity. No lesions are appreciated. Cardiovascular: Regular rate and rhythm with a normal S1 and S2. No gallops, murmurs, or rubs. Normal PMI, no JVD. No pulse deficits. Respiratory: Lungs have equal breath sounds bilaterally, clear to auscultation and percussion. No rales, rhonchi or wheezes noted. No increased work of breathing, no retractions or nasal flaring. Abdomen/GI: Soft, non-tender, with normal bowel sounds. No distension or tympany. No guarding or rebound. No evidence of tenderness throughout. Back: No spinal tenderness. No costovertebral tenderness. Full range of motion. Male : Normal genitalia with no discharge or lesions. Skin: Warm, dry with normal turgor. Normal color with no rashes, no lesions, and no evidence of cellulitis. MS/ Extremity: Pulses equal, no cyanosis. Neurovascular intact. Full, normal range of motion. Neuro: Awake and alert, GCS 15, oriented to person, place, time, and situation. Cranial nerves II-XII grossly intact. Motor strength 5/5 in all extremities. Sensory grossly intact. Cerebellar exam normal. Normal gait. Psych: Awake, alert, with orientation to person, place and time. Behavior, mood, and affect are within normal limits. 21:48 Neck: External neck: is normal, C-spine: no acute changes, Thyroid: appears normal, Trachea: is midline with no obvious abnormalities, ROM/movement: pain, that is moderate, with rotation to the left, with rotation to the right, with extension, with flexion, limited range of motion, that is mild, that is moderate, Meningeal signs: are not present, nuchal rigidity, is not appreciated. Vital Signs: 20:08 BP 142 / 72; Pulse 85; Resp 18; Temp 98.5; Pulse Ox 97% on R/A; Weight 78.02 kg (R); aj1 Height 5 ft. 5 in. (165.10 cm) (R); Pain 10/10; 21:00 BP 148 / 66; Pulse 63; Resp 20; Pulse Ox 98% on R/A; aa1 22:38 BP 148 / 76; Pulse 66; Resp 18; Pulse Ox 99% on R/A; aa1 23:22 BP 159 / 67; Pulse 64; Resp 18; Temp 98.4; Pulse Ox 97% on R/A; Pain 0/10; aa1 20:08 Body Mass Index 28.62 (78.02 kg, 165.10 cm) aj1 MDM: 20:16 Patient medically screened. [facility] 08/01 21:47 Order name: CBC with Diff; Complete Time: 22:34 [facility] 08/01 21:47 Order name: Comprehensive Metabolic Panel; Complete Time: 22:34 [facility] 08/01 21:47 Order name: CT Head C Spine [facility] 08/01 23:01 Order name: Urine Dipstick--Ancillary (enter results) ar5 08/01 23:10 Order name: Urine Dipstick-Ancillary [facility] 08/01 21:47 Order name: Urine Dipstick-Ancillary (obtain specimen); Complete Time: 23:00 david Administered Medications: 21:52 CANCELLED (Duplicate Order): Zofran 2 mg IVP once; over 2 minutes david 21:57 Drug: Valium 5 mg Route: PO; fc 23:21 Follow up: Response: No adverse reaction; Pain is decreased aa1 22:37 Drug: NS 0.9% 1000 ml Route: IV; Rate: 125 ml/hr; Site: left antecubital; aa1 23:22 Follow up: IV Status: Completed infusion; IV Intake: 125ml aa1 22:38 Drug: Zofran 4 mg Route: IVP; Site: left antecubital; aa1 23:21 Follow up: Response: No adverse reaction aa1 22:41 Drug: Dilaudid 0.5 mg Route: IVP; Site: left antecubital; aa1 23:21 Follow up: Response: No adverse reaction; Pain is decreased aa1 23:21 Not Given (Duplicate Order): Dilaudid 0.5 mg IVP once aa1 Disposition: 08/01/18 22:56 Discharged to Home. Impression: Headache, Torticollis, Unspecified kidney failure. - Condition is Stable. - Discharge Instructions: General Headache Without Cause, Acute Torticollis, Adult, Chronic Kidney Disease, Adult, [id number], General Headache Without Cause, Fdyx-yr-Miwo, Chronic Kidney Disease, Adult. - Prescriptions for Valium 5 mg Oral Tablet - take 1 tablet by ORAL route every 8 hours As needed; 14 tablet. Tramadol 50 mg Oral Tablet - take 1 tablet by ORAL route every 8 hours as needed; 24 tablet. - Medication Reconciliation Form, Thank You Letter, Antibiotic Education, Prescription Opioid Use form. - Follow up: Private Physician; When: 2 - 3 days; Reason: Recheck today's complaints, Continuance of care, Re-evaluation by your physician. Follow up: Marin Arreola; When: 2 - 3 days; Reason: Recheck today's complaints, Continuance of care, Re-evaluation by your physician. - Problem is new. - Symptoms have improved. Signatures: Dispatcher [employer] EDGerda Huerta, RN RN aj1 Ricarda Arellano RN RN aa1 Phillip Narvaez MD MD cha Chretien, Felicia RN RN fc Corrections: (The following items were deleted from the chart) 21:52 21:47 Zofran 2 mg IVP once; over 2 minutes ordered. [facility] 23:24 22:56 08/01/2018 22:56 Discharged to Home. Impression: Headache; Torticollis; aa1 Unspecified kidney failure. Condition is Stable. Discharge Instructions: General Headache Without Cause, Acute Torticollis, Adult, General Headache Without Cause, [id number], Chronic Kidney Disease, Adult, Zwoq-nj-Svax, Chronic Kidney Disease, Adult. Prescriptions for Valium 5 mg Oral Tablet - take 1 tablet by ORAL route every 8 hours As needed; 14 tablet, Tramadol 50 mg Oral Tablet - take 1 tablet by ORAL route every 8 hours as needed; 24 tablet. and Forms are Medication Reconciliation Form, Thank You Letter, Antibiotic Education, Prescription Opioid Use. Follow up: Private Physician; When: 2 - 3 days; Reason: Recheck today's complaints, Continuance of care, Re-evaluation by your physician. Follow up: Marin Arreola; When: 2 - 3 days; Reason: Recheck today's complaints, Continuance of care, Re-evaluation by your physician. Problem is new. Symptoms have improved. [facility]
[2018-08-01 23:09] LABS: Urine Blood NEGATIVE (NEG); Urine Glucose TRACE (NEG); Urine Protein NEGATIVE (NEG); Urine Specific Gravity 1.015 (1.005-1.030)
--- NOTE | 2018-08-03 11:36 | RAD REPORT ---
EXAM DESCRIPTION: CT - Head C Spine Mpr Wo Con - 08/01/2018 11:26 pm CLINICAL HISTORY: The patients is 82 years old and is Male; PAIN COMPARISON: None. TECHNIQUE: Axial computed tomography images of the head/brain and cervical spine without intravenous contrast. Sagittal and coronal reformatted images were created and reviewed. This CT exam was perfor med using one or more of the following dose reduction techniques: Automated exposure control, adjustm ent of the mA and/or kV according to patient size, and/or use of iterative reconstruction technique. FINDINGS: BRAIN: No acute territorial infarct, intracranial hemorrhage, extra axial collection, mass effect, hydrocephalus or herniation. Prominence of the sulci and cisterns suggestive of volume loss. Confluent periventricular and subcortical hypodensities. Scattered sulcal rounded and punctate calcifications are seen in the parietotemporal regions as well as superior aspect of the posterior fossa. No significant white matter disease. VENTRICLES: See above. SKULL: Diffuse osteopenia. No acute fracture. SINUSES: Unremarkable as visualized. No acute sinusitis. MASTOID AIR CELLS: Unremarkable as visualized. No mastoid effusion. VERTEBRAE: No acute fracture. Prior C4-C6 discectomy/laminectomy. Straightening of normal cervical lordosis with preservation of vertebral body alignment. Mid cervical vertebral body height,likely degenerative. DISC/SPINAL CANAL/NEURAL FORAMINA: See above. SOFT TISSUES: Diffuse thickening of the retrodental soft tissues. IMPRESSION: 1. No acute intracranial abnormality. 2. Cerebral volume loss and chronic small vessel ischemic changes. 3. Scattered extra-axial bilateral frontotemporal and posterior fossa rounded calcifications, likely from prior hemorrhage or infectious process. 4. No acute cervical spine fracture. 5. Prior C4-C6 disectomy/laminectomy. 6. Multilevel multifactorial cervical spondylosis with scattered foraminal narrowing. 7. Diffuse osteopenia. 8. Diffuse thickening of the retrodental soft tissues. Electronically signed by Hari Brannon DO 08/01/2018 10:45 PM SMOCKING MACHINE OPERATOR Due to temporary technical issues with the PACS/Fluency reporting system, reports are being signed by the in house radiologist as a courtesy to ensure prompt reporting. The interpreting radiologist is f ully responsible for the content of the report.
== END 2018-08-01 23:24 | disposition home or self-care (01) ==
LOC: ER 19:42
DX: M43.6 Torticollis (principal); N19 Unspecified kidney failure; R51 Headache; I10 Essential (primary) hypertension; R73.03 Prediabetes; Z79.01 Long term (current) use of anticoagulants; Z88.5 Allergy status to narcotic agent; Z88.8 Allergy status to other drugs, medicaments and biological substances
CPT/HCPCS: 36415; 70450; 72125; 80053; 81003; 85025; 96361; 96374; 96375; 99284; J1170; J2405; J7030

== ENCOUNTER 2018-08-02 03:41 | Emergency (ER) | payer MEDICARE ==
--- OUTSIDE RECORDS SUMMARY | 2018-08-02 03:46 | XMS REPORT | Continuity of Care Document ---
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 0.0 - 0.8 12/12 [facility] HEMATOLOGY Segs-Bands # 3.5 K/CMM 1.5 - 8.1 12/12 [facility] HEMATOLOGY Platelet 144 K/CMM 133 - 450 12/12 [facility] HEMATOLOGY MPV 11.6 fL 7.4 - 10.4 12/12 [facility] HEMATOLOGY RBC 4.65 M/CMM 4.70 - 12/12 MH 6.10 [facility] HEMATOLOGY Hgb 15.2 g/dL 14.0 - 12/12 18.0 [facility] HEMATOLOGY WBC 5.7 K/CMM 3.7 - 10.4 12/12 [facility] MCHC 34.1 g/dL 32.0 - 12/12 36.0 /2015 [facility] HEMATOLOGY RDW 13.1 % 11.5 - 12/12 14. [facility] HEMATOLOGY MCV 95.7 fL 80.0 - 12/12 94.0 [facility] MCH 32.6 pg 27.0 - 12/12 31.0 [facility] Hct 44.5 % 42.0 - 12/12 54.0 /2015 [facility] HEMATOLOGY Protein S 75 % 54 - 137 12/11 Func [facility] HEMATOLOGY Protein C 162 % 72 - 147 12/11 Func [facility] HEMATOLOGY AT III Func 86 % 77 - 140 12/11 [facility] IMMUNOLOGY Cardiolipin null <=19.9 GPL 12/11 IgG [facility] Cardiolipin null <=19.9 APL 12/11 IgA [facility] Cardiolipin 0.4 <=19.9 MPL 12/11 IgM MPL-U/mL [facility] IMMUNOLOGY Beta2-Glycop 0.3 <=19.9 12/11 rotein IgM unit/mL unit/mL /2015 [facility] IMMUNOLOGY Beta2-Glycop null <=19.9 12/11 rotein IgG unit/mL /2015 [facility] IMMUNOLOGY Beta2-Glycop null <=19.9 12/11 rotein IgA unit/mL /2015 [facility] CHEM PANEL A/G Ratio 1.1 0.7 - 1.6 12/11 [facility] CHEM PANEL AGAP 7.9 meq/L 10.0 - 12/11 20.0 [facility] CHEM PANEL B/C Ratio 16 6 - 25 12/11 [facility] CHEM PANEL Globulin 3.6 g/dL 2.0 [...] is not recommended in the following populations: [place] [address] Individuals with unstable creatinine concentrations, including patients [...] Phos 82 unit/L 39 - 136 12/11 [facility] CHEM PANEL AST 13 unit/L 0 - 37 12/11 [facility] CHEM PANEL Bili Total 0.4 mg/dL 0.2 - 1.3 12/11 [facility] CHEM PANEL Total 7.6 g/dL 6.4 - 8.4 12/11 [facility] CHEM PANEL Albumin Lvl 4.0 g/dL 3.5 - 5.0 12/11 [facility] CHEM PANEL ALT 20 unit/L 0 - 65 12/11 [facility] CHEM PANEL CO2 30 meq/L 24 - 32 12/11 [facility] CHEM PANEL Calcium Lvl 8.5 mg/dL [...] meq/L 3.5 - 5.1 12/11 MH Lvl [facility] CHEM PANEL Creatinine 1.78 mg/dL 0.50 - 12/11 MH Lvl 1.40 /2015 [facility] HEMATOLOGY Segs-Bands # 3.4 K/CMM 1.5 - 8.1 12/11 /2015 [facility] HEMATOLOGY Basophils 1.2 % 0.0 - 1.0 12/11 /2015 [facility] HEMATOLOGY Eosinophils 1.9 % 0.0 - 4.0 12/11 /2015 [facility] HEMATOLOGY Lymphocytes 20.6 % 20.0 - 12/11 MH 40.0 /2015 [facility] HEMATOLOGY Monocytes 10.0 % 2.0 - 12.0 12/11 /2015 [facility] HEMATOLOGY Eosinophils 0.1 K/CMM 0.0 - 0.5 12/11 MH # /2016 [facility] HEMATOLOGY Basophils # 0.1 K/CMM 0.0 - 0.2 12/11 /2015 [facility] HEMATOLOGY Monocytes # 0.5 K/CMM 0.0 - 0.8 12/11 /2015 [facility] HEMATOLOGY Lymphocytes 1.1 K/CMM 1.0 - 5.5 12/11 MH # /2015 [facility] HEMATOLOGY Segs 66.3 % 45.0 - 12/11 MH 75.0 /2015 [facility] HEMATOLOGY MCH 31.9 pg 27.0 - 12/11 MH 31.0 [facility] HEMATOLOGY RBC 4.46 M/CMM 4.70 - 12/11 MH 6.10 /2015 [facility] HEMATOLOGY Hgb 14.2 g/dL 14.0 - 12/11 MH 18.0 /2015 [facility] HEMATOLOGY Hct 43.1 % 42.0 - 12/11 MH 54.0 /2015 [facility] HEMATOLOGY MCV 96.6 fL 80.0 - 12/11 94.0 /2015 [facility] HEMATOLOGY WBC 5.2 K/CMM 3.7 - 10.4 12/11 /2015 [facility] HEMATOLOGY RDW 13.1 % 11.5 - 12/11 MH 14.5 /2015 [facility] HEMATOLOGY MCHC 33.0 g/dL 32.0 - 12/11 MH 36.0 /2015 [facility] HEMATOLOGY Platelet 157 K/CMM 133 - 450 12/11 /2015 [facility] HEMATOLOGY MPV 10.2 fL 7.4 - 10.4 12/11 /2015 [facility] HEMATOLOGY INR 1.14 0.85 - 12/11 MH 1.17 [facility] HEMATOLOGY PT 14.9 s 12.0 - 12/11 MH 14.7 /2015 [facility] HEMATOLOGY PTT 32.1 s 22.9 - 12/11 MH 35.8 /2015 [facility] Chest Chest 1view Chest 1view DX 12/12/2015 2:38 PM CDT 12/11 - 1view DX - [facility] Ordering Physician: Nikolas Christie MD Read by: [...] No acute abnormality of the chest. SL: [id number] Spine Spine Patient Name: ONEAL PERSAUD 12/11 [facility] thoracic 3 thoracic - [facility] views DX views DX : 1935; Age: 79 years y/o Male MR: [id number] Read by: Billy Zee MD Dictated Date/time: [...] acute fracture or dislocation. No spondylolisthesis. SL: [id number] Spine Spine lumbar Patient Name: ONEAL PERSAUD 12/11 [facility] lumbar 2 2 or 3 views /2015 - [place] or 3 views DX : 1935; Age: 79 years y/o Male DX MR: [id number] Read by: Billy Zee MD Dictated Date/time: [...] calcification at the abdomen and pelvis. SL: [id number] Chest 2 Chest 2 Patient Name: ONEAL PERSAUD 12/11 [facility] OPID views DX views DX - [facility] : 1935; Age: 79 years y/o Male MR: [id number] Read by: Billy Zee MD Dictated Date/time: [...] chest. IMPRESSION: No acute cardiopulmonary process. SL: [id number] Bone Bone Density - Bone Density DXA [employer] [place] 04/07 - [facility] Density DXA [facility] /2013 - [facility] DXA [employer] MA MALE BONE [...] recommended. Dr. Luci Wilson M.D., aas/fior:04/10/2014 11:01:55 Photographic Restorer: Hiwot IGLESIAS)([place]), [facility] - Outpatient Imaging Vital Signs Vital Sign Value Date Comments Source Heart Rate 55 01/26/2017 [facility] Systolic (mm Hg) 157 01/26/2017 [facility] Diastolic (mm Hg) 70 01/26/2017 [facility] Temperature Oral (F) 98.6 F 01/26/2017 [facility] Respitory Rate 12 01/26/2017 [facility] Weight 75 01/26/2017 [facility] BMI Calculated 26.69 01/26/2017 [facility] Height 167.64 cm 01/26/2017 [facility] Respitory Rate 18 01/26/2017 [facility] Heart Rate 70 01/26/2017 [facility] Temperature Oral (F) 98.1 F 01/26/2017 [facility] Systolic (mm Hg) 122 01/26/2017 [facility] Diastolic (mm Hg) 70 01/26/2017 [facility] Systolic (mm Hg) 154 01/05/2017 [facility] Diastolic (mm Hg) 72 01/05/2017 [facility] Respitory Rate 10 01/05/2017 [facility] Systolic (mm Hg) 167 01/05/2017 [facility] Diastolic (mm Hg) 77 01/05/2017 [facility] Respitory Rate 10 01/05/2017 [facility] Systolic (mm Hg) 169 01/05/2017 [facility] Diastolic (mm Hg) 77 01/05/2017 [facility] Respitory Rate 10 01/05/2017 [facility] Height 165.1 cm 01/05/2017 [facility] Weight 79.091 01/05/2017 [facility] BMI Calculated 29.02 01/05/2017 [facility] Temperature Oral (F) 97.6 F 01/05/2017 [facility] Weight 75.909 09/23/2016 [facility] BMI Calculated 28.73 09/23/2016 [facility] Height 162.56 cm 09/23/2016 [facility] Weight 74.545 05/12/2016 [facility] BMI Calculated 27.35 05/12/2016 [facility] Height 165.1 cm 05/12/2016 [facility] Weight 75.455 05/02/2016 [facility] BMI Calculated 27.68 05/02/2016 [facility] Height 165.1 cm 05/02/2016 [facility] Temperature Oral (F) 97.5 F 04/18/2016 [facility] Heart Rate 59 04/18/2016 [facility] Systolic (mm Hg) 128 04/18/2016 [facility] Diastolic (mm Hg) 70 04/18/2016 [facility] Respitory Rate 18 04/18/2016 [facility] Respitory Rate 18 04/18/2016 [facility] Systolic (mm Hg) 144 04/18/2016 [facility] Diastolic (mm Hg) 71 04/18/2016 [facility] Temperature Oral (F) 97.5 F 04/18/2016 [facility] Heart Rate 56 04/18/2016 [facility] Systolic (mm Hg) 163 04/18/2016 [facility] Diastolic (mm Hg) 65 04/18/2016 [facility] Respitory Rate 18 04/18/2016 [facility] Heart Rate 54 04/18/2016 [facility] Temperature Oral (F) 97.9 F 04/18/2016 [facility] Height 165.1 cm 04/17/2016 [facility] BMI Calculated 27.21 04/17/2016 [facility] Weight 74.176 04/17/2016 [facility] Height 165.1 cm 04/17/2016 [facility] Weight 74.091 04/17/2016 [facility] BMI Calculated 27.18 04/17/2016 [facility] Systolic (mm Hg) 141 12/13/2015 [facility] Diastolic (mm Hg) 72 12/13/2015 [facility] Respitory Rate 18 12/13/2015 [facility] Heart Rate 55 12/13/2015 [facility] Heart Rate 54 12/13/2015 [facility] Respitory Rate 18 12/13/2015 [facility] Systolic (mm Hg) 156 12/13/2015 [facility] Diastolic (mm Hg) 74 12/13/2015 [facility] Respitory Rate 18 12/13/2015 [facility] Systolic (mm Hg) 142 12/13/2015 [facility] Diastolic (mm Hg) 72 12/13/2015 [facility] Heart Rate 50 12/13/2015 [facility] Temperature Oral (F) 97.8 F 12/13/2015 [facility] Temperature Oral (F) 98.8 F 12/13/2015 [facility] Temperature Oral (F) 97.7 F 12/13/2015 [facility] Height 167.64 cm 12/12/2015 [facility] Weight 72.636 12/12/2015 [facility] BMI Calculated 25.85 12/12/2015 [facility] BMI Calculated 27.52 12/12/2015 [facility] Weight 72.727 12/12/2015 [facility] Height 162.56 cm 12/12/2015 [facility] Height 167.64 cm 12/12/2015 [facility] Weight 72.727 12/12/2015 [facility] BMI Calculated 25.88 12/12/2015 [facility] Encounters Location Location Encounter Encounter Reason Attending ADM DC Status Source Details Type Number For Provider Date Date Visit OD [id number] 723.1 - PRASHANT 12/14 Active [facility] 0 [place] [facility] Outpt Diag [id number] Prashant 12/11 12/12 OP[facility] Outpatient Services 2 [place] /2015 [facility] Outpatient [id number] Prashant 12/11 12/12 MH [place] 4 [place] [facility] OBS [id number] Tajuddin 12/11 12/12 [place] Observ[place] 0 Lety /2015 [facility] Outpatient [id number] ECHO VISIT 12/31 Active [facility] [place] Outpatient [id number] ECHO VISIT 12/31 Active [facility] [place] [facility] Outpt Diag [id number] Meena 01/21 01/22 MH [facility] Outpatient Services 3 [facility] [place] Outpatient [id number] SAE 01/31 Active [facility] 2 [place] Outpatient [id number] SAE 02/03 Active [facility] 4 [place] [facility] Outpt Diag [id number] Prashant 04/03 04/04 MH [facility] Outpatient Services 4 [place] [facility] Observation [id number] Laura 04/17 04/18 [place] 1 [place] /2015 [facility] Wound Care [id number] [place] 05/01 05/31 [place] 0 [place] [facility] Outpatient [id number] [place] 05/12 05/13 MH [place] 2 [place] /2015 [facility] Outpt Diag [id number] Janny Sen 06/02 06/03 MH [facility]ID Outpatient Services [facility] Wound Care [id number] [place] 06/05 06/21 MH [place] 1 [place] /2015 [facility] Wound Care [id number] Babajide 06/26 07/26 MH [place] 2 [place] /2016 [facility] Recurring [id number] Babajide 07/30 08/29 MH [place] 3 [place] /2016 [facility] Outpatient [id number] SAE 08/04 [facility] [id number] Babajide 09/02 10/02 [place] 4 Og [facility] Outpatient [id number] Meena 09/23 09/24 [place] 5 [facility] Outpt Diag [id number] Babajide 10/01 10/02 [facility] Outpatient Services 6 [place] [facility] Wound Care [id number] Babajide 10/08 11/07 [place] 5 Og [facility] Wound Care [id number] Babajide 11/19 12/19 [place] 6 [facility] Bedded [id number] Meena 01/05 01/05 [facility] Outpatient 6 Gold [facility] Outpatient [id number] SAE 01/06 Active [facility] 6 [place] [facility] Outpt Diag [id number] Marializa 01/23 01/24 [facility] Outpatient Services 7 [facility] Emergency [id number] Jesusita 01/26 01/26 [place] 7 [facility] Outpatient [id number] SAE 07/09 Active [facility] 7 [place] Outpatient [id number] ECHO VISIT 07/[address] [facility] [place] [facility] Outpatient [id number] Prashant 07/16 07/17 Cardiology 8 [place] [facility] Group Procedures Procedure Code Date Perfomer Comments Source Cataract surgery [id number] [facility] [place] Cholecystectomy [id number] [facility] [place] Cystoscopy and [id number] [facility] transurethral biopsy [place] of prostate Local anesthetic [id number] [facility] cervical facet joint [place] nerve block Lumbar discectomy [id number] [facility] [place] Removal of thyroid [id number] [facility] nodule [place] Cataract surgery [id number] [facility] [place] Cholecystectomy [id number] [facility] [place] Cystoscopy and [id number] [facility] [place] transurethral biopsy [place] of prostate Local anesthetic [id number] [facility] [place] cervical facet joint [place] nerve block Lumbar discectomy [id number] [facility] [place] Removal of thyroid [id number] [facility] [place] nodule [place] Cataract surgery [id number] [facility] Cholecystectomy [id number] [facility] Cystoscopy and [id number] [facility] transurethral biopsy of prostate Local anesthetic [id number] [facility] cervical facet joint nerve block Lumbar discectomy [id number] [facility] Removal of thyroid [id number] [facility] nodule IVC - Insertion of [id number] [facility] inferior vena caval filter Cataract surgery [id number] Medical Group Cholecystectomy [id number] Medical Group Cystoscopy and [id number] Medical transurethral biopsy Group of prostate IVC - Insertion of [id number] [facility] inferior vena caval Group filter Local anesthetic [id number] [facility] cervical facet joint Group nerve block Lumbar discectomy [id number] Medical Group Removal of thyroid [id number] Medical nodule Group
--- NOTE | 2018-08-02 04:07 | ER ---
Nurse's Notes [facility] Name: Simone Baeza Sr Age: 82 yrs Sex: Male : 1935 Arrival Date: 08/02/2018 Time: 03:43 Bed 5 Private MD: Diagnosis: Strain of muscle, fascia and tendon at neck level-intractable pain;Spondylolysis, cervical region;Unspecified kidney failure Presentation: 08/02 03:43 Presenting complaint: EMS states: Pt discharged earlier tonight from ER and diagnosed tl2 with torticollis. Pt called EMS because pain has returned. Transition of care: patient was not received from another setting of care. Onset of symptoms was August 02, 2018 at 03:00. Risk Assessment: Do you want to hurt yourself or someone else? Patient reports no desire to harm self or others. Initial Sepsis Screen: Does the patient meet any 2 criteria? No. Patient's initial sepsis screen is negative. Does the patient have a suspected source of infection? No. Patient's initial sepsis screen is negative. Care prior to arrival: None. 03:43 Method Of Arrival: EMS: [facility] tl2 03:43 Acuity: SVEN 3 tl2 Triage Assessment: 03:46 General: Appears in no apparent distress. uncomfortable, Behavior is cooperative, tl2 appropriate for age, anxious. Pain: Complains of pain in neck. Neuro: Level of Consciousness is awake, alert, obeys commands, Oriented to person, place, time, situation. Cardiovascular: Denies chest pain. Respiratory: Airway is patent Respiratory effort is even, unlabored, Respiratory pattern is regular, symmetrical. GI: No signs and/or symptoms were reported involving the gastrointestinal system. : No signs and/or symptoms were reported regarding the genitourinary system. Musculoskeletal: Circulation, motion, and sensation intact. Range of motion: limited in neck. Historical: - Allergies: 03:46 Codeine; tl2 03:46 Gluten Protein; tl2 - Home Meds: 03:46 amlodipine 5 mg tab once daily for Hypertension [Active]; fenofibrate 54 mg Oral tab tl2 once daily [Active]; folic acid 400 mcg Oral tab 1 tab once daily [Active]; gabapentin 300 mg Oral cap 1 cap 3 times per day for Postherpetic Neuralgia [Active]; glipizide 5 mg Oral tab once daily [Active]; lamotrigine Oral 1 tab 2 times per day [Active]; losartan-hydrochlorothiazide 50-12.5 mg Oral tab 1 tab once daily for Hypertension [Active]; pioglitazone 30 mg Oral tab 1 tab once daily [Active]; Xarelto 20 mg Oral tab once daily [Active]; - PMHx: 03:46 DVT; Hypertension; pre-diabetic; tl2 - Immunization history:: Adult Immunizations up to date. - Social history:: Smoking status: Patient/guardian denies using tobacco. - Ebola Screening: : No symptoms or risks identified at this time. - Family history:: not pertinent. Screenin:48 Abuse screen: Denies threats or abuse. Nutritional screening: No deficits noted. tl2 Tuberculosis screening: No symptoms or risk factors identified. Fall Risk Gait- Weak (10 pts.). Assessment: 03:46 General: see triage assessment. tl2 04:30 Reassessment: Patient appears in no apparent distress at this time. Patient and/or tl2 family updated on plan of care and expected duration. Pain level reassessed. Patient is alert, oriented x 3, equal unlabored respirations, skin warm/dry/pink. Patient states feeling better. 05:30 Reassessment: Patient appears in no apparent distress at this time. Patient and/or tl2 family updated on plan of care and expected duration. Pain level reassessed. Patient is alert, oriented x 3, equal unlabored respirations, skin warm/dry/pink. 06:55 Reassessment: Patient appears in no apparent distress at this time. Patient and/or tl2 family updated on plan of care and expected duration. Pain level reassessed. Patient is alert, oriented x 3, equal unlabored respirations, skin warm/dry/pink. pt stable and ready for transport. Vital Signs: 03:46 BP 177 / 72; Pulse 70; Resp 20; Temp 97.6(O); Pulse Ox 98% on R/A; Weight 81.65 kg; tl2 Height 5 ft. 6 in. (167.64 cm); Pain 10/10; 05:34 BP 166 / 76; Pulse 63; Resp 10; Pulse Ox 100% on 2 lpm NC; tl2 06:45 BP 145 / 56; Pulse 64; Resp 12; Pulse Ox 100% on 2 lpm NC; tl2 03:46 Body Mass Index 29.05 (81.65 kg, 167.64 cm) tl2 Vitals: 05:34 Cardiac Rhythm Assessment Sinus rhythm. tl2 ED Course: 03:43 Patient arrived in ED. tl2 03:44 Triage completed. tl2 03:46 Arm band placed on right wrist. tl2 03:48 Patient has correct armband on for positive identification. Bed in low position. Call tl2 light in reach. Side rails up X2. 03:49 Phillip Narvaez MD is Attending Physician. david 04:05 Inserted saline lock: 22 gauge in right antecubital area, using aseptic technique. tl2 Blood collected. 04:13 Magy Og, RAYSA is Primary Nurse. tl2 06:55 No provider procedures requiring assistance completed. Patient transferred, IV remains tl2 in place. Administered Medications: 04:14 Drug: NS 0.9% 1000 ml Route: IV; Rate: 125 ml/hr; Site: right antecubital; tl2 06:56 Follow up: IV Status: Infusion continued upon transfer tl2 04:14 Drug: Dilaudid 0.5 mg Route: IVP; Site: right antecubital; tl2 04:30 Follow up: Response: No adverse reaction; Pain is decreased tl2 04:14 Drug: Zofran 4 mg Route: IVP; Site: right antecubital; tl2 05:00 Follow up: Response: No adverse reaction tl2 05:49 Drug: Valium 5 mg Route: PO; tl2 06:56 Follow up: Response: No adverse reaction; Pain is decreased tl2 06:45 Drug: Dilaudid 0.5 mg Route: IVP; Site: right antecubital; tl2 06:56 Follow up: Response: No adverse reaction; No adverse reaction, given upon transfer tl2 Outcome: 04:06 ER care complete, transfer ordered by . david 06:55 Transferred by ground EMS to [facility], Transfer form completed. tl2 06:55 Condition: stable 06:55 Discharge instructions given to patient, family, Instructed on the need for transfer. 06:57 Patient left the ED. tl2 Signatures: Phillip Narvaez MD MD cha Knox, Taylor, RAYSA RN tl2
--- NOTE | 2018-08-02 04:08 | EDPHYS ---
Physician Documentation [facility] Name: Simone Baeza Sr Age: 82 yrs Sex: Male : 1935 Arrival Date: 08/02/2018 Time: 03:43 Bed 5 Private MD: ED Physician Phillip Narvaez HPI: 08/02 04:02 This 82 yrs old Male presents to ER via EMS with complaints of Neck Pain, david <24hrs Old. 04:02 The patient or guardian complains of decreased range of motion, pain, that is acute. david The symptoms are located at the cervical spine. Onset: The symptoms/episode began/occurred 1 day(s) ago. Context: The problem was sustained at home, at an unknown location. Associated signs and symptoms: The patient has no apparent associated signs or symptoms. The pain does not radiate. Modifying factors: The symptoms are alleviated by nothing. the symptoms are aggravated by movement. Severity of symptoms: At their worst the symptoms were severe, in the emergency department the symptoms have improved, moderately. Historical: - Allergies: 03:46 Codeine; tl2 03:46 Gluten Protein; tl2 - Home Meds: 03:46 amlodipine 5 mg tab once daily for Hypertension [Active]; fenofibrate 54 mg Oral tab tl2 once daily [Active]; folic acid 400 mcg Oral tab 1 tab once daily [Active]; gabapentin 300 mg Oral cap 1 cap 3 times per day for Postherpetic Neuralgia [Active]; glipizide 5 mg Oral tab once daily [Active]; lamotrigine Oral 1 tab 2 times per day [Active]; losartan-hydrochlorothiazide 50-12.5 mg Oral tab 1 tab once daily for Hypertension [Active]; pioglitazone 30 mg Oral tab 1 tab once daily [Active]; Xarelto 20 mg Oral tab once daily [Active]; - PMHx: 03:46 DVT; Hypertension; pre-diabetic; tl2 - Immunization history:: Adult Immunizations up to date. - Social history:: Smoking status: Patient/guardian denies using tobacco. - Ebola Screening: : No symptoms or risks identified at this time. - Family history:: not pertinent. ROS: 04:02 Constitutional: Negative for fever, chills, and weight loss, Eyes: Negative for injury, david pain, redness, and discharge, ENT: Negative for injury, pain, and discharge, Cardiovascular: Negative for chest pain, palpitations, and edema, Respiratory: Negative for shortness of breath, cough, wheezing, and pleuritic chest pain, Abdomen/GI: Negative for abdominal pain, nausea, vomiting, diarrhea, and constipation, Back: Negative for injury and pain, : Negative for injury, bleeding, discharge, and swelling, MS/Extremity: Negative for injury and deformity, Skin: Negative for injury, rash, and discoloration, Neuro: Negative for headache, weakness, numbness, tingling, and seizure, Psych: Negative for depression, anxiety, suicide ideation, homicidal ideation, and hallucinations, Allergy/Immunology: Negative for hives, rash, and allergies, Endocrine: Negative for neck swelling, polydipsia, polyuria, polyphagia, and marked weight changes, Hematologic/Lymphatic: Negative for swollen nodes, abnormal bleeding, and unusual bruising. 04:02 Neck: Positive for pain with movement, pain at rest. Exam: 04:02 Constitutional: This is a well developed, well nourished patient who is awake, alert, david and in no acute distress. Head/Face: Normocephalic, atraumatic. Eyes: Pupils equal round and reactive to light, extra-ocular motions intact. Lids and lashes normal. Conjunctiva and sclera are non-icteric and not injected. Cornea within normal limits. Periorbital areas with no swelling, redness, or edema. ENT: Nares patent. No nasal discharge, no septal abnormalities noted. Tympanic membranes are normal and external auditory canals are clear. Oropharynx with no redness, swelling, or masses, exudates, or evidence of obstruction, uvula midline. Mucous membranes moist. Chest/axilla: Normal chest wall appearance and motion. Nontender with no deformity. No lesions are appreciated. Cardiovascular: Regular rate and rhythm with a normal S1 and S2. No gallops, murmurs, or rubs. Normal PMI, no JVD. No pulse deficits. Respiratory: Lungs have equal breath sounds bilaterally, clear to auscultation and percussion. No rales, rhonchi or wheezes noted. No increased work of breathing, no retractions or nasal flaring. Abdomen/GI: Soft, non-tender, with normal bowel sounds. No distension or tympany. No guarding or rebound. No evidence of tenderness throughout. Back: No spinal tenderness. No costovertebral tenderness. Full range of motion. Male : Normal genitalia with no discharge or lesions. Skin: Warm, dry with normal turgor. Normal color with no rashes, no lesions, and no evidence of cellulitis. MS/ Extremity: Pulses equal, no cyanosis. Neurovascular intact. Full, normal range of motion. Neuro: Awake and alert, GCS 15, oriented to person, place, time, and situation. Cranial nerves II-XII grossly intact. Motor strength 5/5 in all extremities. Sensory grossly intact. Cerebellar exam normal. Normal gait. Psych: Awake, alert, with orientation to person, place and time. Behavior, mood, and affect are within normal limits. 04:02 Neck: External neck: no acute changes, C-spine: Thyroid: appears normal, Trachea: is midline with no obvious abnormalities, ROM/movement: is normal. Vital Signs: 03:46 BP 177 / 72; Pulse 70; Resp 20; Temp 97.6(O); Pulse Ox 98% on R/A; Weight 81.65 kg; tl2 Height 5 ft. 6 in. (167.64 cm); Pain 10/10; 05:34 BP 166 / 76; Pulse 63; Resp 10; Pulse Ox 100% on 2 lpm NC; tl2 06:45 BP 145 / 56; Pulse 64; Resp 12; Pulse Ox 100% on 2 lpm NC; tl2 03:46 Body Mass Index 29.05 (81.65 kg, 167.64 cm) tl2 MDM: 03:49 Patient medically screened. [facility] 04:04 Data reviewed: vital signs, nurses notes, lab test result(s), EKG, radiologic studies, [facility] CT scan. 08/02 04:02 Order name: CBC with Diff; Complete Time: 05:00 [facility] 08/02 04:02 Order name: Chem 7; Complete Time: 04:50 [facility] 08/02 04:02 Order name: EKG; Complete Time: 04:02 [facility] 08/02 04:02 Order name: EKG - Nurse/Tech; Complete Time: 04:13 [facility] Administered Medications: 04:14 Drug: NS 0.9% 1000 ml Route: IV; Rate: 125 ml/hr; Site: right antecubital; tl2 06:56 Follow up: IV Status: Infusion continued upon transfer tl2 04:14 Drug: Dilaudid 0.5 mg Route: IVP; Site: right antecubital; tl2 04:30 Follow up: Response: No adverse reaction; Pain is decreased tl2 04:14 Drug: Zofran 4 mg Route: IVP; Site: right antecubital; tl2 05:00 Follow up: Response: No adverse reaction tl2 05:49 Drug: Valium 5 mg Route: PO; tl2 06:56 Follow up: Response: No adverse reaction; Pain is decreased tl2 06:45 Drug: Dilaudid 0.5 mg Route: IVP; Site: right antecubital; tl2 06:56 Follow up: Response: No adverse reaction; No adverse reaction, given upon transfer tl2 Disposition: 08/02/18 04:06 Transfer ordered to [facility]. Diagnosis are Strain of muscle, fascia and tendon at neck level - intractable pain, Spondylolysis, cervical region, Unspecified kidney failure. - Reason for transfer: Higher level of care. - Accepting physician is winnie. - Condition is Fair. - Problem is new. - Symptoms have improved. Signatures: Dispatcher [employer] EDPR Phillip Narvaez MD MD cha Knox, Taylor RN RN tl2 Corrections: (The following items were deleted from the chart) 04:51 04:06 08/02/2018 04:06 Transfer ordered to [facility]. [facility] Diagnosis is Strain of muscle, fascia and tendon at neck level - intractable pain; Spondylolysis, cervical region. Reason for transfer: Higher level of care. Accepting physician is winnie. Condition is Fair. Problem is new. Symptoms have improved. [facility] 06:57 04:51 08/02/2018 04:06 Transfer ordered to [facility]. tl2 Diagnosis is Strain of muscle, fascia and tendon at neck level - intractable pain; Spondylolysis, cervical region; Unspecified kidney failure. Reason for transfer: Higher level of care. Accepting physician is winnie. Condition is Fair. Problem is new. Symptoms have improved. [facility]
[2018-08-02] MEDS ORDERED: HYDROMORPHONE HCL 0.5 MG/0.5 ML INJ ONE ×2 (04:20→06:38)
[2018-08-02] MEDS ORDERED: NA CHLORIDE 0.9% 1,000 ML ONE (04:21)
[2018-08-02] MEDS ORDERED: ONDANSETRON 4 MG/2 ML VIAL ONE (04:21)
[2018-08-02 04:23] LABS: Absolute Monocytes 0.8 K/uL (0.1-1.3); Absolute Neutrophil 4.5 K/uL (1.8-8.0); Hematocrit 39.3 % (39.6-49.0); Lymphocytes % 16.1 % (15.3-44.8); MPV 10.4 fL (7.6-11.3); RBC Red Blood Cell Count 4.01 M/uL (4.33-5.43)
[2018-08-02 04:42] LABS: Potassium 3.8 mmol/L (3.5-5.1)
[2018-08-02] MEDS ORDERED: DIAZEPAM 5 MG TABLET ONE (05:59)
--- NOTE | 2018-08-02 07:20 | EKG ---
Test Date: 2018-08-02 Test Time: 04:14:07 Camera Systems Engineer: JV MEASUREMENT RESULTS: Intervals: Rate: 68 MD: 236 QRSD: 96 QT: 390 QTc: 414 [place]: P: 79 MD: 236 QRS: 18 T: 31 INTERPRETIVE STATEMENTS: Sinus rhythm with 1st degree AV block Abnormal ECG No previous ECG available for comparison Electronically Signed On 08-02-18 07:19:35 POLYMERIZATION HELPER by Christo Cowan
== END 2018-08-02 06:57 | disposition short-term general hospital (02) ==
LOC: ER 03:41
DX: S16.1XXA Strain of muscle, fascia and tendon at neck level, initial encounter (principal); M47.892 Other spondylosis, cervical region; N19 Unspecified kidney failure; I10 Essential (primary) hypertension; R73.03 Prediabetes; Z79.01 Long term (current) use of anticoagulants; Z88.5 Allergy status to narcotic agent; Z91.018 Allergy to other foods
CPT/HCPCS: 36415; 80048; 85025; 93005; 96361; 96374; 96375; 99285; J1170 ×2; J2405; J7030

== ENCOUNTER 2019-03-19 23:24 | Emergency (ER) | payer MEDICARE ==
--- NOTE | 2019-03-20 00:23 | ER ---
Nurse's Notes [facility] Name: Simone Baeza Sr Age: 83 yrs Sex: Male : 1935 Arrival Date: 03/19/2019 Time: 23:29 Bed 7 Private MD: Diagnosis: Conjunctival hemorrhage, right eye Presentation: 03/19 23:37 Presenting complaint: Patient states: an hour ago i noticed my right eye is mg2 red/bleeding with pain. he is on xarelto for thrombosis. he also had a seizure last mar 16, 2019. Transition of care: patient was not received from another setting of care. Onset of symptoms was March 19, 2019 at 22:40. Risk Assessment: Do you want to hurt yourself or someone else? Patient reports no desire to harm self or others. Initial Sepsis Screen: Does the patient meet any 2 criteria? No. Patient's initial sepsis screen is negative. Does the patient have a suspected source of infection? No. Patient's initial sepsis screen is negative. Care prior to arrival: None. 23:37 Method Of Arrival: Wheelchair mg2 23:37 Acuity: SVEN 3 mg2 Triage Assessment: 23:49 General: Appears in no apparent distress. uncomfortable, Behavior is calm, cooperative, cc3 appropriate for age. Pain: Complains of pain in right eye. Historical: - Allergies: 23:42 Codeine; mg2 23:42 Gluten Protein; mg2 - Home Meds: 23:42 amlodipine 5 mg tab once daily for Hypertension [Active]; fenofibrate 54 mg Oral tab mg2 once daily [Active]; folic acid 400 mcg Oral tab 1 tab once daily [Active]; gabapentin 300 mg Oral cap 1 cap 3 times per day for Postherpetic Neuralgia [Active]; glipizide 5 mg Oral tab once daily [Active]; lamotrigine Oral 1 tab 2 times per day [Active]; losartan-hydrochlorothiazide 50-12.5 mg Oral tab 1 tab once daily for Hypertension [Active]; pioglitazone 30 mg Oral tab 1 tab once daily [Active]; Xarelto 20 mg Oral tab once daily [Active]; - PMHx: 23:42 DVT; Hypertension; pre-diabetic; mg2 - PSHx: 23:42 neck sx; Cholecystectomy; mg2 - Immunization history:: Flu vaccine is up to date. - Social history:: Smoking status: Patient/guardian denies using tobacco, Patient/guardian denies using alcohol, street drugs, IV drugs. - Ebola Screening: : No symptoms or risks identified at this time. Screenin:49 Abuse screen: Denies threats or abuse. Denies injuries from another. Nutritional cc3 screening: No deficits noted. Tuberculosis screening: No symptoms or risk factors identified. Fall Risk Ambulatory Aid- None/Bed Rest/Nurse Assist (0 pts). Gait- Impaired (20 pts.). Mental Status- Oriented to own ability (0 pts). Assessment: 23:49 General: Appears in no apparent distress. uncomfortable, Behavior is calm, cooperative, cc3 appropriate for age. Pain: Complains of pain in right eye Pain does not radiate. Pain currently is 4 out of 10 on a pain scale. Quality of pain is described as aching. Neuro: Level of Consciousness is awake, alert, obeys commands, Oriented to person, place, time, situation, Appropriate for age Extension Professor are equal bilaterally Moves all extremities. Gait is unsteady, Speech is normal, Facial symmetry appears normal, Pupils are PERRLA, Intact. Cardiovascular: Denies chest pain, Heart tones S1 S2 present Capillary refill < 3 seconds in bilateral fingers Patient's skin is warm and dry. Respiratory: Airway is patent Respiratory effort is even, unlabored, Respiratory pattern is regular, symmetrical. GI: Abdomen is round non-distended. : No signs and/or symptoms were reported regarding the genitourinary system. EENT: Eyes redness on the inner part of the right eye. Derm: Skin is intact, is healthy with good turgor, Skin is pink, warm \T\ dry. normal. Musculoskeletal: Circulation, motion, and sensation intact. Range of motion: uses a cane/walker. 03/20 00:30 Reassessment: Patient appears in no apparent distress at this time. Patient and/or cc3 family updated on plan of care and expected duration. Pain level reassessed. Patient is alert, oriented x 3, equal unlabored respirations, skin warm/dry/pink. Dr. Clemens discharged the patient home, no prescription given. No IV cannula in situ. Patient left ER vitally stable by wheelchair escorted by me and the patient's . No valuables left in the patient's room. Patient denies pain at this time. Patient states feeling better. Patient states symptoms have improved. Vital Signs: 03/19 23:41 BP 129 / 74; Pulse 64; Resp 18; Temp 98.1; Pulse Ox 100% on R/A; Weight 77.11 kg; mg2 Height 5 ft. 5 in. (165.10 cm); Pain 6/10; 03/20 00:20 BP 154 / 60; Pulse 62; Resp 18 S; Pulse Ox 99% on R/A; Pain 1/10; cc3 03/19 23:41 Body Mass Index 28.29 (77.11 kg, 165.10 cm) mg2 ED Course: 03/19 23:29 Patient arrived in ED. cf2 23:41 Triage completed. [facility] 23:43 Arm band placed on. [facility] 23:46 Carmine Clemens MD is Attending Physician. 23:49 Emelyn Painter is Primary Nurse. cc3 23:49 Patient has correct armband on for positive identification. Bed in low position. Call cc3 light in reach. Side rails up X2. Pulse ox on. NIBP on. 03/20 00:30 No provider procedures requiring assistance completed. Patient did not have IV access cc3 during this emergency room visit. Administered Medications: No medications were administered Outcome: 00:20 Discharge ordered by . 00: Patient left the ED. cc3 00:29 Discharged to home via wheelchair, with family. cc3 00:29 Condition: stable 00:29 Discharge instructions given to patient, family, Instructed on discharge instructions, follow up and referral plans. Demonstrated understanding of instructions, follow-up care. Signatures: Carmine Clemens MD MD Dinh Cruz, RN RN [facility] Emelyn Painter cc3 Samantha Mcnair cf2 Corrections: (The following items were deleted from the chart) 03/19 23:43 23:41 BP 129 / 74; Pulse 64bpm; Resp 18bpm; Pulse Ox 100% RA; Temp 98.1F; Pain 6/10; mg2mg2
--- NOTE | 2019-03-20 00:24 | EDPHYS ---
Physician Documentation [facility] Name: Simone Baeza Sr Age: 83 yrs Sex: Male : 1935 Arrival Date: 03/19/2019 Time: 23:29 Bed 7 Private MD: ED Physician Carmine Clemens HPI: 03/20 00:14 This 83 yrs old Male presents to ER via Wheelchair with complaints of Eye gs Problem. 00:14 The patient is experiencing redness. Onset: The symptoms/episode began/occurred today. gs Duration: the symptoms are continuous. Aggravated by blinking. Associated signs and symptoms: Pertinent negatives: dizziness, headache. Severity of symptoms: At their worst the symptoms were moderate in the emergency department the symptoms are unchanged. Historical: - Allergies: 03/19 23:42 Codeine; mg2 23:42 Gluten Protein; mg2 - Home Meds: 23:42 amlodipine 5 mg tab once daily for Hypertension [Active]; fenofibrate 54 mg Oral tab mg2 once daily [Active]; folic acid 400 mcg Oral tab 1 tab once daily [Active]; gabapentin 300 mg Oral cap 1 cap 3 times per day for Postherpetic Neuralgia [Active]; glipizide 5 mg Oral tab once daily [Active]; lamotrigine Oral 1 tab 2 times per day [Active]; losartan-hydrochlorothiazide 50-12.5 mg Oral tab 1 tab once daily for Hypertension [Active]; pioglitazone 30 mg Oral tab 1 tab once daily [Active]; Xarelto 20 mg Oral tab once daily [Active]; - PMHx: 23:42 DVT; Hypertension; pre-diabetic; mg2 - PSHx: 23:42 neck sx; Cholecystectomy; mg2 - Immunization history:: Flu vaccine is up to date. - Social history:: Smoking status: Patient/guardian denies using tobacco, Patient/guardian denies using alcohol, street drugs, IV drugs. - Ebola Screening: : No symptoms or risks identified at this time. ROS: 03/20 00:14 Neuro: Positive for thinks may have had seizure, takes seizure meds was in bed woke up gs and said was awake and was shaking.. All other systems are negative. Exam: 00:14 ENT: Nares patent. No nasal discharge, no septal abnormalities noted. Tympanic gs membranes are normal and external auditory canals are clear. Oropharynx with no redness, swelling, or masses, exudates, or evidence of obstruction, uvula midline. Mucous membranes moist. Neck: Trachea midline, no thyromegaly or masses palpated, and no cervical lymphadenopathy. Supple, full range of motion without nuchal rigidity, or vertebral point tenderness. No Meningismus. Chest/axilla: Normal chest wall appearance and motion. Nontender with no deformity. No lesions are appreciated. Cardiovascular: Regular rate and rhythm with a normal S1 and S2. No gallops, murmurs, or rubs. Normal PMI, no JVD. No pulse deficits. Respiratory: Lungs have equal breath sounds bilaterally, clear to auscultation and percussion. No rales, rhonchi or wheezes noted. No increased work of breathing, no retractions or nasal flaring. Abdomen/GI: Soft, non-tender, with normal bowel sounds. No distension or tympany. No guarding or rebound. No evidence of tenderness throughout. Back: No spinal tenderness. No costovertebral tenderness. Full range of motion. Skin: Warm, dry with normal turgor. Normal color with no rashes, no lesions, and no evidence of cellulitis. MS/ Extremity: Pulses equal, no cyanosis. Neurovascular intact. Full, normal range of motion. Neuro: Awake and alert, GCS 15, oriented to person, place, time, and situation. Cranial nerves II-XII grossly intact. Motor strength 5/5 in all extremities. Sensory grossly intact. Cerebellar exam normal. Normal gait. 00:14 Constitutional: The patient appears alert, awake. 00:14 Eyes: Conjunctiva: subconjunctival hemorrhage(s), seen in the right eye, at 3 o'clock. Vital Signs: 03/19 23:41 BP 129 / 74; Pulse 64; Resp 18; Temp 98.1; Pulse Ox 100% on R/A; Weight 77.11 kg; mg2 Height 5 ft. 5 in. (165.10 cm); Pain 6/10; 03/20 00:20 BP 154 / 60; Pulse 62; Resp 18 S; Pulse Ox 99% on R/A; Pain 1/10; cc3 03/19 23:41 Body Mass Index 28.29 (77.11 kg, 165.10 cm) mg2 MDM: 00:04 Patient medically screened. 00:14 Data reviewed: vital signs, nurses notes. Counseling: I had a detailed discussion with the patient and/or guardian regarding: the historical points, exam findings, and any diagnostic results supporting the discharge/admit diagnosis, discussed holding henny has no active vte , until cant speak with pcp. Administered Medications: No medications were administered Disposition: 03/20/19 00:20 Discharged to Home. Impression: Conjunctival hemorrhage, right eye. - Condition is Stable. - Discharge Instructions: Subconjunctival Hemorrhage. - Medication Reconciliation Form, Thank You Letter, Antibiotic Education, Prescription Opioid Use form. - Follow up: Private Physician; When: 2 - 3 days; Reason: Re-evaluation by your physician. Signatures: Carmine Clemens MD MD Dinh Cruz RN RN [facility] Emelyn Painter cc3 Corrections: (The following items were deleted from the chart) 00:29 00:20 03/20/2019 00:20 Discharged to Home. Impression: Conjunctival hemorrhage, right cc3 eye. Condition is Stable. Forms are Medication Reconciliation Form, Thank You Letter, Antibiotic Education, Prescription Opioid Use. Follow up: Private Physician; When: 2 - 3 days; Reason: Re-evaluation by your physician.
[2019-03-20 00:46] VITALS: BP 129/74; TEMP 98.1; O2SAT 100
== END 2019-03-20 00:29 | disposition home or self-care (01) ==
LOC: ER 23:24
DX: H11.31 Conjunctival hemorrhage, right eye (principal); I10 Essential (primary) hypertension; Z79.01 Long term (current) use of anticoagulants; Z88.5 Allergy status to narcotic agent; Z86.718 Personal history of other venous thrombosis and embolism; Z91.018 Allergy to other foods
CPT/HCPCS: 99283

== ENCOUNTER 2021-08-26 07:08 | Emergency (ER) | payer OTHER ==
--- OUTSIDE RECORDS SUMMARY | 2021-08-26 07:10 | XMS REPORT | Continuity of Care Document ---
:1935 Author Organization [facility] t Address [address] [place] [address] Care Team Providers Name Role Phone Riley Dooley Primary Care Physician MARIE Attending Clinician Unavailable Nickell_K Attending Clinician Unavailable Bryson Arcos Attending Clinician [phone] Nickelalex_Alexis Admitting Clinician Unavailable Payers Payer Name Policy Type Policy Number Effective Date Expiration Date S russel [facility] [id number] 2021 00:00:00 [employer] - [id number] 2020 [facility] 00:00:00 (MEDICARE REPLACEMENT/ADVANTA GE - HMO) [facility] [id number] (HMO) Problems Condition Condition Condition Status Onset Resolution Last Treating Co mments Source Name Details Category Date Date Treatment Clinician Date Bilateral Bilateral Disease Active Last [facility] numbness numbness - [facility] and and 00:00: t & Plan: tingling tingling 00 Formattin of arms of arms g of this and legs and legs note might be different from the original. We will MRI his cervical spine as he has a history of previous surgery and he feels the symptoms in his arms are the same as then. Trigger Trigger Disease Active Last [facility] middle middle -30 [facility] finger of finger of 00:00: t & Plan: right hand right hand 00 Formattin g of this note might be different from the original. We will do a steroid injection and follow-up . Allergies, Adverse Reactions, Alerts Allergy Allergy Status Severity Reaction(s) Onset Inactive Treating Comm ents Source Name Type Date Date Clinician Dede Allergy Active Other [facility] to 06-22 reaction( Health substanc 00:00: s): Other e 00 (see comments) Social History Social Habit Start Date Stop Date Quantity Comments [facility] Alcohol Std Drinks History [facility] Health Alcohol Binge History [facility] Health Alcohol Comment Exposure to Not sure [facility] SARS-CoV-2 (event) Tobacco use and 2021-03-20 2021-03-20 Smokeless tobacco [facility] exposure 00:00:00 00:00:00 non-user Alcohol intake 2021-03-20 2021-03-20 Lifetime [facility] 00:00:00 00:00:00 non-drinker (finding) History [facility] 2021-03-20 2021-03-20 1 [facility] Alcohol Frequency 00:00:00 00:00:00 Sex Ass[birth year] At [birth year] M [facility] 00:00:00 00:00:00 Smoking Status Start Date Stop Date Source Tobacco smoking consumption unknown [facility] Ex-smoker 2021-03-20 00:00:00 2021-03-20 00:00:00 [facility] Medications Ordered Filled Start Stop Current Ordering Indication Dosage Frequency Signature Comments Components Source Medication Medication Date Date Medication? Clinician (SIG) Name Name bupivacaine 2020- No [id number] 1mL [facility] (Marcaine) 03-21 Health 0.25 % 13:33: 13:33 injection 1 33 :00 mL triamcinolo 2020- No [id number] 20mg [facility] ne 03-21 Health acetonide 13:33: 13:33 (Kenalog-40 33 :00 ) injection 20 mg triamcinolo 2020- No [id number] 20mg 20 mg, [facility] ne 03-21 [facility] acetonide 13:33: 13:33 cular, (Kenalog-40 33 :00 Once PRN ) injection Procedure, 20 mg Starting on Thu03/21/21 at 0833, For 1 dose bupivacaine 2020- No [id number] 1mL 1 mL, [place] (Marcaine) 03-21 Injection, He alth 0.25 % 13:33: 13:33 Once PRN injection 1 33 :00 Procedure, mL Starting on Shanelle 03/21/21 at 0833, For 1 dose bupivacaine 2020- No [id number] 1mL [facility] (Marcaine) 03-21 Health 0.25 % 13:33: 13:33 injection 1 33 :00 mL triamcinolo 2020- No [id number] 20mg UT nj 03-21 Health acetonide 13:33: 13:33 (Kenalog-40 33 :00 ) injection 20 mg triamcinolo 2020- No [id number] 20mg 20 mg, UT ne 03-21 [facility] acetonide 13:33: 13:33 cular, (Kenalog-40 33 :00 Once PRN ) injection Procedure, 20 mg Starting on Shanelle 03/21/21 at 0833, For 1 dose bupivacaine No [id number] 1mL 1 mL, [place] (Marcaine) 03-21 Injection, He alth 0.25 % 13:33: 13:33 Once PRN injection 1 33 :00 Procedure, mL Starting on Shanelle 03/21/21 at 0833, For 1 dose Vital Signs Vital Name Observation Time Observation Value Comments Source Body height 2021-03-20 16:29:00 162.6 cm [facility] Body weight 2021-03-20 16:29:00 76.204 kg [facility] BMI 2021-03-20 16:29:00 28.84 kg/m2 [facility] Procedures Procedure Date / Time Performed Performing Clinician [facility] e MRI CERVICAL SPINE WO CONTRAST 2021-04-03 16:40:50 Antonio Main [facility] [place] INJECT TENDON SHEATH/LIGAMENT 2021-03-20 16:15:00 Gema Main [facility] Encounters Start End Encounter Admission Attending Care Care Encounter Source Date/Time Date/Time Type Type Clinicians Facility Department ID 2021-03-19 Outpatient [facility] [id number] [place] 16:34:19 Health 2021-03-11 Outpatient [facility] [id number] [place] 10:09:51 [facility] 2021-02-27 Outpatient MARIE [facility] [id number] [place] 15:41:[address] [facility] 2021-06-10 2021-06-10 Outpatient Nickell_K [facility]U [id number] [place] 10:47:00 10:47:00 [id number] [facility] 2021-06-10 2021-06-10 Outpatient Josselyn, HMU HMU [id number] 00:00:00 00:00:00 Hakeem Massey [id number] 2021-06-10 2021-06-10 Outpatient Josselyn, HMU HMU [id number] 00:00:00 00:00:00 Hakeem Massey [id number] 2021-06-07 2021-06-07 Outpatient Nickell_K HMU HMU [id number] [place] 03:09:00 03:09:00 [id number] [facility] 2021-05-22 2021-05-22 Outpatient Nickell_K HMU HMU [id number] [place] 09:26:00 09:26:00 [id number] [facility] 2021-05-21 2021-05-21 Outpatient Nickell_K HMU HMU [id number] [place] 11:15:00 11:15:00 [id number] [facility] 2021-05-21 2021-05-21 Outpatient Josselyn, HMU HMU [id number] 00:00:00 00:00:00 Hakeem Massey [id number] 2021-04-03 2021-04-03 EXT [facility] OP BISHOP Main MSP [id number] [place] 00:00:00 00:00:00 [id number] [facility] [id number] 2021-03-20 2021-03-20 Office JAN Main [facility] [id number] [place] 10:46:18 11:56:53 Visit Robert VALLES [id number] [facility] [id number] [address] [id number] 2021-03-19 2021-03-19 Orders JAN Main [facility] [id number] [place] 00:00:00 00:00:00 Only Robert VALLES [id number] [facility] [id number] [address] 7 [id number] 2021-03-11 2021-03-11 JAN Villafana [facility] [id number] [place] 00:00:00 00:00:00 Only Robert VALLES [id number] H [facility] [id number] [address] 5 [id number] 2021-02-21 2021-02-21 Outpatient Nickell_K HMU HMU [id number] [place] 05:38:00 05:38:00 [id number] [facility] 2021-02-16 2021-02-16 Outpatient Nickell_K HMU HMU [id number] [place] 10:35:00 10:35:00 [id number] [facility] 2021-02-16 2021-02-16 Outpatient Josselyn, HMU HMU [id number] 00:00:00 00:00:00 Hakeem Massey [id number] 2020-12-03 2020-12-03 Outpatient Nickell_K HMU HMU [id number] [place] 02:36:00 02:36:00 [id number] [facility] 2020-11-14 2020-11-14 Outpatient Nickell_K HMU HMU [id number] [place] 12:01:00 12:01:00 [id number] [facility] 2020-11-12 2020-11-12 Outpatient Nickell_K HMU HMU [id number] [place] 03:55:00 03:55:00 [id number] [facility] 2020-11-10 2020-11-10 Outpatient Nickell_K HMU HMU [id number] [place] 01:03:00 01:03:00 [id number] [facility] 2020-11-09 2020-11-09 Outpatient Nickell_K HMU HMU [id number] [place] 12:35:00 12:35:00 [id number] [facility] 2020-11-02 2020-11-02 Outpatient Nickell_K HMU HMU [id number] [place] 04:29:00 04:29:00 [id number] [facility] 2020-10-26 2020-10-26 Outpatient Nickell_K HMU HMU [id number] [place] 09:58:00 09:58:00 [id number] [facility] 2020-10-23 2020-10-23 Outpatient Nickell_K HMU HMU [id number] [place] 11:18:00 11:18:00 [id number] [facility] 2020-10-23 2020-10-23 Outpatient Josselyn, HMU HMU [id number] 00:00:00 00:00:00 Hakeem Massey [id number] 2020-10-17 2020-10-17 Outpatient Nickell_K HMU HMU [id number] [place] 04:38:00 04:38:00 [id number] [facility] 2020-10-17 2020-10-17 Outpatient Nickell_K HMU HMU [id number] [place] 04:38:00 04:38:00 [id number] [facility] Results Test Description Test Time Test Comments Results Result Sour e Comments MRI LUMBAR WO 2018-03-19 CLINICAL INDICATION: 11:17:43 M54.16 Radiculopathy, lumbar region, low back pain and left leg pain.MODALITY: Avanto 1.5 Alisia 18 channel MRI TECHNIQUE: Multiplanar multi sequence MRI examination of the lumbar spine was performed.IMPRESSION:1 . There are five lumbar vertebra was straightened lordosis.2. At L3-4 there is moderate disc degeneration, 3 mm spondylitic protrusion and 12 mm left lateral recess sequestered disc fragment. There is impingement of descending left L4 nerve root and exiting left L3 nerve root. Right foramen and lateral recess are also stenotic.3. At L4-5 there has been left laminectomy. There is mild to moderate central canal stenosis. There is foraminal narrowing bilaterally, worse on the left. There is significant intrathecal clustering of cauda equina nerve roots suggesting arachnoidal adhesions.4. At L5-S1 thecal sac tapers. However there is significant peripheral clustering of cauda equina nerve roots suggesting arachnoidal adhesions/arachnoiditi s.5. 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 Conus terminates at T12-L1. Cauda equina nerve roots are clustered peripherally at the L4 and L5 levels consistent with arachnoidal adhesions.Numerous simple cysts are seen in both kidneys.FINDINGS AT SPECIFIC LEVELS:L5-S1: Disc is mildly degenerated. There is tapered thecal sac at this level. 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 Mild bilateral foraminal narrowing is present. Moderate facet osteoarthritis is present.L4-L5: There is moderate loss of disc height with nuclear dehydration. There has been a left laminectomy. However, there is moderate circumferential central canal stenosis. There is 3 mm diffuse spondylitic protrusion with moderately severe bilateral proximal foraminal and lateral recess stenosis. There are clustered or clumped cauda equina nerve roots suggestive of arachnoiditis. Facet joints are degenerated.L3-L4: There is moderate loss of disc height with nuclear dehydration. There is 3 mm diffuse spondylitic protrusion with moderately severe central canal stenosis. There is a 12 mm x 6 mm sequestered fragment of disc extending inferior to the disc space into the left lateral recess with impingement of distal exiting left L4 nerve root. There is relatively severe bilateral foraminal stenosis with probable impingement of exiting L3 nerve roots. There is also moderate right lateral recess stenosis. Moderately severe hypertrophic facet osteoarthritis is present with ligamentum flavum hypertrophy.L2-L3: There is mild loss of disc height with nuclear dehydration and spondylosis. Broad-based 2 mm posture protrusion is present with mild central canal stenosis. There is mild right and moderate left foraminal and lateral recess narrowing. Facet joints are mildly hypertrophic and degenerated.L1-L2: There is mild loss of disc height. 1 mm diffuse protrusion is present with patent canal and patent foramen. Facet joints are moderately degenerated. Images above depict spine labeling system, extruded/sequestered fragment of disc in the left lateral recess at L3-4 and clumped nerve roots in the thecal sac at L4-5 and L5-S1 consistent with arachnoiditis.
[2021-08-26 08:02] LABS: Absolute Lymphocytes (CBC) 0.9 K/uL (0.7-4.9); Hematocrit 38.9 % (39.6-49.0); Lymphocytes % 21.2 % (15.3-44.8); MPV 10.4 fL (7.6-11.3); RBC Red Blood Cell Count 3.96 M/uL (4.33-5.43)
[2021-08-26 08:18] LABS: Albumin 3.6 g/dL (3.4-5.0); Bilirubin Direct 0.1 mg/dL (0-0.2); Bilirubin Total 0.3 mg/dL (0.2-1.0); Potassium 3.8 mmol/L (3.5-5.1); Protein, Total 6.6 g/dL (6.4-8.2)
[2021-08-26] MEDS ORDERED: MORPHINE 4 MG/ML SYR ONE (08:19)
[2021-08-26] MEDS ORDERED: ONDANSETRON 4 MG/2 ML VIAL ONE (08:19)
[2021-08-26 08:33] LABS: Urine Blood Trace-intact (Negative); Urine Glucose Negative (Negative); Urine Protein Negative (Negative); Urine Specific Gravity 1.025 (1.005-1.030); Urine pH 6.5 (5.0-7.0)
[2021-08-26 09:14] LABS: Urine Appearance CLEAR (Clear); Urine Bilirubin NEGATIVE (Negative); Urine Blood NEGATIVE (Negative); Urine Color YELLOW (Yellow); Urine Glucose NEGATIVE (Negative); Urine Protein NEGATIVE (Negative); Urine Specific Gravity 1.015 (1.005-1.030); Urine Urobilinogen 0.2 mg/dL (0.2-1.0); Urine pH 6.5 (5.0-7.0)
[2021-08-26 09:15] LABS: Urine Microscopic Reflex NO UMIC
--- NOTE | 2021-08-26 09:24 | ER ---
Nurse's Notes [facility] Name: Simone Baeza Age: 85 yrs Sex: Male : 1935 Arrival Date: 08/26/2021 Time: 07:10 Bed 17 Private MD: Diagnosis: Urinary retention Presentation: 08/26 07:28 Chief complaint: Patient states: Unable to urinate x 3 hours. Denies pain. Coronavirus ss screen: Client denies travel out of the [place] in the last 14 days. Ebola Screen: Patient denies exposure to infectious person. Patient denies travel to an Ebola-affected area in the 21 days before illness onset. Initial Sepsis Screen: Does the patient meet any 2 criteria? No. Patient's initial sepsis screen is negative. Does the patient have a suspected source of infection? No. Patient's initial sepsis screen is negative. Risk Assessment: Do you want to hurt yourself or someone else? Patient reports no desire to harm self or others. Onset of symptoms was August 26, 2021. 07:28 Method Of Arrival: Ambulatory 07:28 Acuity: SVEN 3 ss Historical: - Allergies: 07:19 Codeine; ss 07:19 Gluten Protein; ss - Home Meds: 08:33 amlodipine 5 mg tab once daily for Hypertension [Active]; fenofibrate 54 mg Oral tab eo2 once daily [Active]; folic acid 400 mcg Oral tab 1 tab once daily [Active]; gabapentin 300 mg Oral cap 1 cap 3 times per day for Postherpetic Neuralgia [Active]; glipizide 5 mg Oral tab once daily [Active]; lamotrigine Oral 1 tab 2 times per day [Active]; losartan-hydrochlorothiazide 50-12.5 mg Oral tab 1 tab once daily for Hypertension [Active]; pioglitazone 30 mg Oral tab 1 tab once daily [Active]; Xarelto 20 mg Oral tab once daily [Active]; - PMHx: 07:19 DVT; Hypertension; Diabetes mellitus; ss - PSHx: 07:19 Neck; Cholecystectomy; prostate; ss - Immunization history:: Client reports receiving the 2nd dose of the Covid vaccine. - Social history:: Smoking status: Patient denies any tobacco usage or history of. Screenin:31 Abuse screen: Denies threats or abuse. Denies injuries from another. Nutritional eo2 screening: No deficits noted. Tuberculosis screening: No symptoms or risk factors identified. Fall Risk None identified. Assessment: 08:31 General: Appears in no apparent distress. comfortable, Behavior is calm, cooperative. eo2 Pain: Complains of pain in bladder. Neuro: Level of Consciousness is awake, alert, obeys commands, Oriented to person, place, time, situation, Denies dizziness, headache. Cardiovascular: Denies chest pain, shortness of breath. Respiratory: Airway is patent Trachea midline Respiratory effort is even, unlabored, Breath sounds are clear bilaterally. Denies shortness of breath. GI: Patient currently denies diarrhea, nausea, vomiting. : Reports inability to void since 3am today. Vital Signs: 07:19 BP 143 / 61; Pulse 56; Resp 16; Temp 97.9(TE); Pulse Ox 98% on R/A; Weight 75.3 kg; ss Height 5 ft. 5 in. (165.10 cm); Pain 0/10; 08:00 BP 150 / 74; Pulse 52; Resp 15; Pulse Ox 100% ; Pain 5/10; eo2 09:00 BP 136 / 55; Pulse 49; Resp 15; Pulse Ox 98% ; Pain 2/10; eo2 10:00 BP 130 / 62; Pulse 50; Resp 15; Pulse Ox 99% ; Pain 2/10; eo2 07:19 Body Mass Index 27.62 (75.30 kg, 165.10 cm) ED Course: 07:10 Patient arrived in ED. rg4 07:19 Arm band placed on right wrist. 07:23 Raza Gross MD is Attending Physician. sp3 07:29 Triage completed. ss 07:52 Reema Martino, RAYSA is Primary Nurse. eo2 07:54 Inserted saline lock: 20 gauge in right forearm, using aseptic technique. mb7 08:27 Coud inserted, using sterile technique, 16 Fr. Returned clear yellow urine. To gravity eo2 drainage. Urine specimen collected. 08:31 Patient has correct armband on for positive identification. Pulse ox on. NIBP on. Door eo2 closed. Noise minimized. 08:31 No provider procedures requiring assistance completed. eo2 08:33 Urine Microscopic Only Sent. mb7 08:33 UA Sent. mb7 Administered Medications: 08:20 Drug: morphine 2 mg Route: IVP; Site: right forearm; eo2 09:20 Follow up: Response: No adverse reaction; Pain is decreased eo2 08:20 Drug: Zofran (Ondansetron) 4 mg Route: IVP; Site: right forearm; eo2 09:20 Follow up: Response: No adverse reaction eo2 Output: 10:39 Urine: 500ml (Oneill); Total: 500ml. eo2 Outcome: 09:23 Discharge ordered by . [email or web address] 11:06 Patient left the ED. ab2 Signatures: Michaela Person, RN RN Caren Jauregui rg4 Raza Gross MD MD sp3 Jaclyn Cantu mb7 Reema Martino RN RN eo2 Alfa Charles ab2 Corrections: (The following items were deleted from the chart) 08:34 08:33 PMHx: pre-diabetic; eo2 eo2
--- NOTE | 2021-08-26 09:24 | EDPHYS ---
Physician Documentation [facility] Name: Simone Baeza Age: 85 yrs Sex: Male : 1935 Arrival Date: 08/26/2021 Time: 07:10 Bed 17 Private MD: ED Physician Raza Gross HPI: 08/26 07:41 This 85 yrs old Male presents to ER via Ambulatory with complaints of Urinary sp3 Problem. 07:41 85-year-old male with a history of diabetes, hypertension and prior DVT now presents to [facility] the ED for urinary retention. Patient states that his last urinary output was sometime before midnight he normally urinates every 3 hours or so. Patient does have the urge to go and mild symptoms of bladder distention but otherwise no significant pain. Patient denies fever, visual hematuria on his last urine output, dysuria, history of kidney stones, back pain, or any other symptoms on ROS. Patient does have an enlarged prostate but according to his , everything has been okay with the urologist".. Historical: - Allergies: 07:19 Codeine; ss 07:19 Gluten Protein; ss - Home Meds: 08:33 amlodipine 5 mg tab once daily for Hypertension [Active]; fenofibrate 54 mg Oral tab eo2 once daily [Active]; folic acid 400 mcg Oral tab 1 tab once daily [Active]; gabapentin 300 mg Oral cap 1 cap 3 times per day for Postherpetic Neuralgia [Active]; glipizide 5 mg Oral tab once daily [Active]; lamotrigine Oral 1 tab 2 times per day [Active]; losartan-hydrochlorothiazide 50-12.5 mg Oral tab 1 tab once daily for Hypertension [Active]; pioglitazone 30 mg Oral tab 1 tab once daily [Active]; Xarelto 20 mg Oral tab once daily [Active]; - PMHx: 07:19 DVT; Hypertension; Diabetes mellitus; ss - PSHx: 07:19 Neck; Cholecystectomy; prostate; ss - Immunization history:: Client reports receiving the 2nd dose of the Covid vaccine. - Social history:: Smoking status: Patient denies any tobacco usage or history of. ROS: 07:43 Constitutional: Negative for fever, chills, and weight loss, Eyes: Negative for injury, sp3 pain, redness, and discharge, ENT: Negative for injury, pain, and discharge, Neck: Negative for injury, pain, and swelling, Cardiovascular: Negative for chest pain, palpitations, and edema, Respiratory: Negative for shortness of breath, cough, wheezing, and pleuritic chest pain, Abdomen/GI: Negative for abdominal pain, nausea, vomiting, diarrhea, and constipation, Back: Negative for injury and pain, MS/Extremity: Negative for injury and deformity, Skin: Negative for injury, rash, and discoloration, Neuro: Negative for headache, weakness, numbness, tingling, and seizure, Psych: Negative for depression, anxiety, suicide ideation, homicidal ideation, and hallucinations, Allergy/Immunology: Negative for hives, rash, and allergies. 07:43 All other systems are negative. Exam: 07:43 Constitutional: This is a well developed, well nourished patient who is awake, alert, sp3 and in no acute distress. Neck: Trachea midline, no thyromegaly or masses palpated, and no cervical lymphadenopathy. Supple, full range of motion without nuchal rigidity, or vertebral point tenderness. No Meningismus. Chest/axilla: Normal chest wall appearance and motion. Nontender with no deformity. No lesions are appreciated. Cardiovascular: Regular rate and rhythm with a normal S1 and S2. No gallops, murmurs, or rubs. Normal PMI, no JVD. No pulse deficits. Respiratory: Lungs have equal breath sounds bilaterally, clear to auscultation and percussion. No rales, rhonchi or wheezes noted. No increased work of breathing, no retractions or nasal flaring. Back: No spinal tenderness. No costovertebral tenderness. Full range of motion. Male : Normal genitalia with no discharge or lesions. Skin: Warm, dry with normal turgor. Normal color with no rashes, no lesions, and no evidence of cellulitis. MS/ Extremity: Pulses equal, no cyanosis. Neurovascular intact. Full, normal range of motion. Neuro: Awake and alert, GCS 15, oriented to person, place, time, and situation. Cranial nerves II-XII grossly intact. Motor strength 5/5 in all extremities. Sensory grossly intact. Cerebellar exam normal. Normal gait. Psych: Awake, alert, with orientation to person, place and time. Behavior, mood, and affect are within normal limits. 07:43 Abdomen/GI: Mild suprapubic pain over the bladder. No lateralized pain. No peritoneal signs including rebound or guarding.. Vital Signs: 07:19 BP 143 / 61; Pulse 56; Resp 16; Temp 97.9(TE); Pulse Ox 98% on R/A; Weight 75.3 kg; ss Height 5 ft. 5 in. (165.10 cm); Pain 0/10; 08:00 BP 150 / 74; Pulse 52; Resp 15; Pulse Ox 100% ; Pain 5/10; eo2 09:00 BP 136 / 55; Pulse 49; Resp 15; Pulse Ox 98% ; Pain 2/10; eo2 10:00 BP 130 / 62; Pulse 50; Resp 15; Pulse Ox 99% ; Pain 2/10; eo2 07:19 Body Mass Index 27.62 (75.30 kg, 165.10 cm) ss MDM: 07:24 Patient medically screened. sp3 07:43 Data reviewed: vital signs, nurses notes. ED course: 85-year-old male with likely sp3 urinary retention secondary to enlarged prostate. I am not suspicious for UTI, kidney stone, sepsis, or any other critical findings at this time. Work-up pending including Oniell catheter placement, urine analysis, and general labs. Patient has no acute distress resting comfortably at this time.. 09:21 ED course: Patient is much relieved after the Oneill catheter placement. There is no sp3 infection on urinalysis. Renal function is at baseline in the 2 range as referenced from prior visits. Patient told to follow-up with their urologist in the next 48 hours and told to return here if they are unable to get an appointment.. 08/26 07:35 Order name: Basic Metabolic Panel; Complete Time: 09:06 sp3 08/26 07:35 Order name: CBC with Diff; Complete Time: 09:06 sp3 08/26 07:35 Order name: Hepatic Function; Complete Time: 09:06 sp3 08/26 07:35 Order name: UA sp3 08/26 07:35 Order name: Urine Microscopic Only sp3 08/26 08:33 Order name: Urine Dipstick-Ancillary; Complete Time: 09:06 EDMS 08/26 07:35 Order name: IV Saline Lock; Complete Time: 07:54 sp3 08/26 07:35 Order name: Labs collected and sent; Complete Time: 07:54 sp3 08/26 07:35 Order name: Oneill; Complete Time: 08:30 sp3 08/26 07:35 Order name: Urine Dipstick-Ancillary (obtain specimen); Complete Time: 08:33 sp3 Administered Medications: 08:20 Drug: morphine 2 mg Route: IVP; Site: right forearm; eo2 09:20 Follow up: Response: No adverse reaction; Pain is decreased eo2 08:20 Drug: Zofran (Ondansetron) 4 mg Route: IVP; Site: right forearm; eo2 09:20 Follow up: Response: No adverse reaction eo2 Disposition Summary: 08/26/21 09:23 Discharge Ordered Location: Home sp3 Condition: Stable sp3 Diagnosis - Urinary retention sp3 Followup: sp3 - With: Private Physician - When: Upon discharge from the Emergency Department - Reason: Re-evaluation by your physician Discharge Instructions: - Discharge Summary Sheet sp3 - Acute Urinary Retention, Male sp3 Forms: - Medication Reconciliation Form sp3 - Thank You Letter sp3 - Antibiotic Education sp3 - Prescription Opioid Use sp3 Signatures: Dispatcher [employer] EDMichaela Cueto RN RN ss Raza Gross MD MD sp3 Reema Martino RN RN eo2 Corrections: (The following items were deleted from the chart) 08:34 08:33 PMHx: pre-diabetic; eo2 eo2
[2021-08-26 09:56] LABS: Urine Bacteria <20 /HPF (NONE SEEN); Urine RBC <5 /HPF (NONE SEEN)
[2021-08-26 11:12] VITALS: TEMP 97.9
[2021-08-26 11:16] VITALS: BP 130/62; O2SAT 99
== END 2021-08-26 11:06 | disposition home or self-care (01) ==
LOC: ER 07:08
DX: R33.9 Retention of urine, unspecified (principal); E11.9 Type 2 diabetes mellitus without complications; I10 Essential (primary) hypertension; Z86.718 Personal history of other venous thrombosis and embolism; Z79.01 Long term (current) use of anticoagulants; Z88.5 Allergy status to narcotic agent; Z91.018 Allergy to other foods
CPT/HCPCS: 85025; 80048; 36415; 80076; J2405; 81003; 81015; 96374; 96375; 99284

== ENCOUNTER 2024-02-14 23:40 | Emergency (ER) | payer OTHER ==
[2024-02-15] MEDS ORDERED: LIDOCAINE 2% INJ, 20 mL 0 ML ONE (00:51)
[2024-02-15] MEDS ORDERED: LIDOCAINE 2% W/EPI 1:200,000 MPF 20 ML VIAL IM ONE (00:56)
--- NOTE | 2024-02-15 01:10 | ER ---
Nurse's Notes [facility] Name: Simone Baeza Age: 88 yrs Sex: Male : 1935 Arrival Date: 02/14/2024 Time: 23:40 Bed 14 Private MD: Diagnosis: Bleeding varicose vein to right lower extremity Presentation: 02/14 00:41 Chief complaint: Patient states: bleeding veins. Coronavirus screen: Vaccine status: vc1 Patient reports being unvaccinated. Ebola Screen: Patient negative for fever greater than or equal to 101.5 degrees Fahrenheit, and additional compatible Ebola Virus Disease symptoms Patient denies exposure to infectious person. Patient denies travel to an Ebola-affected area in the 21 days before illness onset. No symptoms or risks identified at this time. Initial Sepsis Screen: Does the patient meet any 2 criteria? No. Patient's initial sepsis screen is negative. Does the patient have a suspected source of infection? No. Patient's initial sepsis screen is negative. Risk Assessment: Do you want to hurt yourself or someone else? Patient reports no desire to harm self or others. Onset of symptoms was February 15, 2024. 00:41 Method Of Arrival: Wheelchair vc1 00:41 Acuity: SVEN 3 vc1 Historical: - Allergies: 00:43 Codeine; vc1 00:43 Gluten Protein; vc1 - Home Meds: 00:43 amlodipine 5 mg tab once daily for Hypertension [Active]; gabapentin 300 mg Oral cap 1 vc1 cap 3 times per day for Postherpetic Neuralgia [Active]; glipizide 5 mg Oral tab once daily [Active]; losartan-hydrochlorothiazide 50-12.5 mg Oral tab 1 tab once daily for Hypertension [Active]; pioglitazone 30 mg Oral tab 1 tab once daily [Active]; 00:45 lamotrigine 25 mg oral Tablet, Chewable Dispersible [Active]; folic acid 800 mcg oral vc1 tablet [Active]; Xarelto 10 mg oral tablet [Active]; aspirin 325 mg Oral tablet [Active]; divalproex 250 mg oral tablet, delayed release (enteric coated) 2 times per day [Active]; Farxiga 10 mg oral tablet daily [Active]; furosemide 40 mg Oral tablet once a week [Active]; Mounjaro 2.5 mg/0.5 mL subcutaneous Pen Injector [Active]; - PMHx: 00:43 diabetes mellitus; DVT; Hypertension; vc1 - PSHx: 00:43 Cholecystectomy; neck; prostate; vc1 - Immunization history:: Client reports receiving the 2nd dose of the Covid vaccine. - Infectious Disease History:: Denies. - Social history:: Smoking status: Patient denies any tobacco usage or history of. - Family history:: not pertinent. Screenin:33 [facility] ED Fall Risk Assessment (Adult) History of falling in the last 3 months, ha1 including since admission No falls in past 3 months (0 pts) Confusion or Disorientation No (0 pts) Intoxicated or Sedated No (0 pts) Impaired Gait No (0 pts) Mobility Assist Device Used No (0 pt) Altered Elimination No (0 pt) Score/Fall Risk Level 0 - 2 = Low Risk Oriented to surroundings, Maintained a safe environment, Hourly rounding (assess needs \\T\\ fall precautionary measures) done. Abuse screen: Denies threats or abuse. Denies injuries from another. Nutritional screening: No deficits noted. Tuberculosis screening: No symptoms or risk factors identified. Assessment: 00:30 General: Appears comfortable, Behavior is calm, cooperative. Pain: Denies pain. Neuro: ha1 Level of Consciousness is awake, alert, obeys commands, Oriented to person, place, time, situation. Cardiovascular: Capillary refill < 3 seconds Patient's skin is warm and dry. Cardiovascular: Reports bleeding from the right lower leg. states" one of my small veins burst ". bleeding stopped, pressure dressing applied. Respiratory: Airway is patent Respiratory effort is even, unlabored, Respiratory pattern is regular, symmetrical. GI: No signs and/or symptoms were reported involving the gastrointestinal system. Abdomen is round non-distended. 01:32 Reassessment: Patient and/or family updated on plan of care and expected duration. Pain ha1 level reassessed. Patient is alert, oriented x 3, equal unlabored respirations, skin warm/dry/pink. Vital Signs: 00:40 BP 165 / 72; Pulse 61; Resp 17 S; Pulse Ox 98% on R/A; ha1 00:49 Pulse 59; Resp 18; Temp 97.5; Pulse Ox 98% ; Weight 72.57 kg; Height 5 ft. 5 in. ; vc1 00:49 BP 157 / 66; vc1 00:49 Body Mass Index 26.63 (72.57 kg, 165.1 cm) vc1 ED Course: 02/13 23:42 Patient arrived in ED. [id number] 23:49 Isidro Collazo MD is Attending Physician. rt 02/14 00:30 Patient has correct armband on for positive identification. Placed in gown. Bed in low ha1 position. Call light in reach. Side rails up X 1. Adult w/ patient. 00:42 Triage completed. vc1 00:44 Arm band placed on left wrist. vc1 00:51 Shirin Sales, RN is Primary Nurse. ha1 01:33 No provider procedures requiring assistance completed. Patient did not have IV access ha1 during this emergency room visit. 01:34 Provided Education on: stitches removal . ha1 Administered Medications: 01:00 Drug: Lidocaine-Epinephrine Infiltration -2 % (1:100,000) 10 ml Infiltration once; to ha1 bedside {Note: administered by Dr. Collazo .} Route: Infiltration; 01:32 Follow up: Response: No adverse reaction ha1 Medication: 01:33 VIS not applicable for this client. ha1 Outcome: 01:10 Discharge ordered by MD. rt 01:34 Discharged to home via wheelchair, with family, ha1 01:34 Condition: stable 01:34 Discharge instructions given to patient, family, Instructed on discharge instructions, follow up and referral plans. wound care, Demonstrated understanding of instructions, follow-up care, wound care, 01:35 Patient left the ED. ha1 Signatures: Bibiana Anaya [email or web address] Ina Adams RN RN vc1 Shirin Sales RN RN ha1 Isidro Collazo MD MD rt Corrections: (The following items were deleted from the chart) 00:49 00:43 Home Meds: fenofibrate 54 mg Oral tab once daily; vc1 vc1 00:49 00:43 Home Meds: folic acid 400 mcg Oral tab 1 tab once daily; vc1 vc1 :49 00:43 Home Meds: lamotrigine Oral 1 tab 2 times per day; vc1 vc1 00:49 00:43 Home Meds: Xarelto 20 mg Oral tab once daily; 1 1
--- NOTE | 2024-02-15 01:10 | EDPHYS ---
Physician Documentation [facility] Name: Simone Baeza Age: 88 yrs Sex: Male : 1935 Arrival Date: 02/14/2024 Time: 23:40 Bed 14 Private MD: ED Physician Isidro Collazo HPI: 02/14 04:54 This 88 yrs old Male presents to ER via Wheelchair with complaints of Wound rt Infection, BLEEDING-LEG INFECTION, DVT, PT ON BLOOD THINNERS. 04:54 Patient presents to the ED with bleeding varicose vein to the right side. The rt applied pressure to the area controlling bleeding. Denies injury, acute complaints, symptoms are mild in severity, no other aggravating or alleviating factors.. Historical: - Allergies: 00:43 Codeine; vc1 00:43 Gluten Protein; vc1 - Home Meds: 00:43 amlodipine 5 mg tab once daily for Hypertension [Active]; gabapentin 300 mg Oral cap 1 vc1 cap 3 times per day for Postherpetic Neuralgia [Active]; glipizide 5 mg Oral tab once daily [Active]; losartan-hydrochlorothiazide 50-12.5 mg Oral tab 1 tab once daily for Hypertension [Active]; pioglitazone 30 mg Oral tab 1 tab once daily [Active]; 00:45 lamotrigine 25 mg oral Tablet, Chewable Dispersible [Active]; folic acid 800 mcg oral vc1 tablet [Active]; Xarelto 10 mg oral tablet [Active]; aspirin 325 mg Oral tablet [Active]; divalproex 250 mg oral tablet, delayed release (enteric coated) 2 times per day [Active]; Farxiga 10 mg oral tablet daily [Active]; furosemide 40 mg Oral tablet once a week [Active]; Mounjaro 2.5 mg/0.5 mL subcutaneous Pen Injector [Active]; - PMHx: 00:43 diabetes mellitus; DVT; Hypertension; vc1 - PSHx: 00:43 Cholecystectomy; neck; prostate; vc1 - Immunization history:: Client reports receiving the 2nd dose of the Covid vaccine. - Infectious Disease History:: Denies. - Social history:: Smoking status: Patient denies any tobacco usage or history of. - Family history:: not pertinent. ROS: 04:54 Constitutional: Negative for fever, chills, and weight loss, Skin: Negative for injury, rt rash, and discoloration, Neuro: Negative for headache, weakness, numbness, tingling, and seizure, 04:54 MS/extremity: Positive for Bleeding varicose vein to the right leg, denies injury, Exam: 04:54 Constitutional: This is a well developed, well nourished patient who is awake, alert, rt and in no acute distress. Chest/axilla: Normal chest wall appearance and motion. Nontender with no deformity. No lesions are appreciated. Cardiovascular: Regular rate and rhythm with a normal S1 and S2. No gallops, murmurs, or rubs. Normal PMI, no JVD. No pulse deficits. Respiratory: Lungs have equal breath sounds bilaterally, clear to auscultation and percussion. No rales, rhonchi or wheezes noted. No increased work of breathing, no retractions or nasal flaring. Abdomen/GI: Soft, non-tender, with normal bowel sounds. No distension or tympany. No guarding or rebound. No evidence of tenderness throughout. 04:54 Musculoskeletal/extremity: Varicose veins noted, small skin defect with good hemostasis noted. No active bleeding.. Vital Signs: 00:40 BP 165 / 72; Pulse 61; Resp 17 S; Pulse Ox 98% on R/A; ha1 00:49 Pulse 59; Resp 18; Temp 97.5; Pulse Ox 98% ; Weight 72.57 kg; Height 5 ft. 5 in. ; vc1 00:49 BP 157 / 66; vc1 00:49 Body Mass Index 26.63 (72.57 kg, 165.1 cm) vc1 MDM: 00:44 Patient medically screened. rt 04:54 Differential diagnosis: Bleeding varicose vein. Data reviewed: vital signs, nurses rt notes. Test considered but Not performed: Other Details Stable vital signs, no active bleeding, labs not decayed. Counseling: I had a detailed discussion with the patient and/or guardian regarding the historical points, exam findings, and any diagnostic results supporting the discharge/admit diagnosis, the need for outpatient follow up, to return to the emergency department if symptoms worsen or persist or if there are any questions or concerns that arise at home. ED course: 1 horizontal mattress suture with a 3-0 Prolene was applied to the site of the bleeding despite hemostasis. Instructed patient on wound care, return precautions. 1% lidocaine with epinephrine, 1 cc was used for anesthesia. Administered Medications: 01:00 Drug: Lidocaine-Epinephrine Infiltration -2 % (1:100,000) 10 ml Infiltration once; to 1 bedside {Note: administered by Dr. Collazo .} Route: Infiltration; 01:32 Follow up: Response: No adverse reaction [facility] Disposition Summary: 02/15/24 01:10 Discharge Ordered Notes: Location: Home rt Problem: new rt Symptoms: have improved rt Condition: Stable rt Diagnosis - Bleeding varicose vein to right lower extremity rt Followup: rt - With: Private Physician - When: 10 - 14 days - Reason: Staple/Suture removal Discharge Instructions: - Discharge Summary Sheet rt - Bleeding Varicose Veins rt Forms: - Medication Reconciliation Form rt - Antibiotic Education rt - Prescription Opioid Use rt - Patient Portal Instructions rt - Leadership Thank You Letter rt Signatures: Ina Adams RN RN [facility] Shirin Sales RN RN [facility] Isidro Collazo MD MD rt Corrections: (The following items were deleted from the chart) 00:49 00:43 Home Meds: fenofibrate 54 mg Oral tab once daily; vc1 vc1 00:49 00:43 Home Meds: folic acid 400 mcg Oral tab 1 tab once daily; 1 vc1 00:49 00:43 Home Meds: lamotrigine Oral 1 tab 2 times per day; vc1 vc1 00:49 00:43 Home Meds: Xarelto 20 mg Oral tab once daily; vc1 1
[2024-02-15 02:28] VITALS: O2SAT 98
[2024-02-15 02:29] VITALS: BP 157/66; TEMP 97.5
== END 2024-02-15 01:35 | disposition home or self-care (01) ==
LOC: ER 23:40
DX: I83.891 Varicose veins of right lower extremity with other complications (principal); Z86.718 Personal history of other venous thrombosis and embolism; Z79.01 Long term (current) use of anticoagulants; I10 Essential (primary) hypertension; E11.9 Type 2 diabetes mellitus without complications; Z79.82 Long term (current) use of aspirin
CPT/HCPCS: 99283

== ENCOUNTER 2024-08-06 11:18 | Inpatient (IN) | payer OTHER ==
--- NOTE | 2024-08-06 11:59 | RAD REPORT ---
EXAMINATION: CT ABDOMEN AND PELVIS WITHOUT CONTRAST CLINICAL INDICATION: FLANK PAIN TECHNIQUE: CT abdomen and pelvis was performed, without IV contrast, as per department protocol. Axia l, sagittal and coronal reconstructions were obtained. One or more of the following dose reduction techniques were used: Automated exposure control, adjustment of the mA and kV according to the patien t size, and iterative reconstruction. Unless otherwise specified, incidental findings do not require dedicated imaging follow-up. COMPARISON: No prior exam. FINDINGS: The lack of intravenous contrast limits the sensitivity of this exam for evaluation of solid visceral organs, vascular structures, and retroperitoneum. LOWER CHEST: The visualized lung bases are clear. LIVER:Normal in size and contour. No focal lesion. Cholecystectomy clips. SPLEEN: Normal size. No focal lesion. PANCREAS: No mass, ductal dilation, or rigo-pancreatic fluid. 17 mm duodenal diverticulum noted projecting into the region of the pancreatic head. ADRENALS: Normal; no mass. KIDNEYS AND URETERS: Multiple bilateral renal cysts are present, largest on the right anteriorly viviana uring 7 cm. No stone or hydronephrosis. URINARY BLADDER: Small amount of air is present urinary bladder. Oneill catheter is in place. GASTROINTESTINAL TRACT: No evidence of bowel obstruction, significant free fluid, free air or abscess . Moderate stool is present throughout the colon. APPENDIX: Normal appendix. LYMPH NODES: No lymphadenopathy. MUSCULOSKELETAL: Mild multilevel spinal degenerative changes. ADDITIONAL FINDINGS: There is IVC filter in place. IMPRESSION: No acute or concerning abnormalities in the abdomen or pelvis, with evaluation limited by lack of IV contrast.
[2024-08-06 12:01] LABS: Specific Gravity 1.015 (1.005-1.030); Sqamous Epithelial None Seen /HPF (None Seen); Urine Bacteria None Seen /HPF (<20); Urine Bilirubin NEGATIVE (Negative); Urine Blood 3+ (Negative); Urine Clarity Extremely Turbid (Clear); Urine Color Colorless (Yellow); Urine Crystals Unidentified Few /HPF (None Seen); Urine Culture Reflex Order REFLEXED; Urine Glucose 4+ (Over) (Negative); Urine Ketones NEGATIVE (Negative); Urine Microscopic Reflex YN ORDER UMIC; Urine Mucus Slight /HPF (None Seen); Urine Nitrite 2+ (Negative); Urine Protein TRACE (Negative); Urine RBC >50 /HPF (None Seen); Urine Urobilinogen Normal (Normal); Urine WBC >50 /HPF (<5); Urine WBC Clump Occasional /HPF (None Seen); Urine Yeast (Budding) Trace /HPF (None Seen)
[2024-08-06 12:15] LABS: Absolute Eosinophils 0.1 K/uL (0-0.5); Absolute Lymphocytes (CBC) 0.3 K/uL (0.7-4.9); Absolute Monocytes 0.6 K/uL (0.1-1.3); Absolute Neutrophil 8.7 K/uL (1.8-8.0); Basophils % 0.4 % (0-1.3); Eosinophils % 0.6 % (0-4.4); Hematocrit 38.7 % (39.6-49.0); Hemoglobin 13.3 g/dL (13.6-17.9); Lymphocytes % 2.9 % (15.3-44.8); MCH 33.6 pg (27.0-35.0); MCHC 34.4 g/dL (32.0-36.0); MCV 97.7 fL (80-100); MPV 9.8 fL (7.6-11.3); Monocytes % 6.2 % (3.3-12.3); Neutrophils % 89.9 % (41.7-73.7); Platelets 139 thou/uL (152-406); RBC Red Blood Cell Count 3.97 M/uL (4.33-5.43); Red Cell Distribution Width 12.9 % (12.1-15.2)
[2024-08-06 12:54] LABS: Albumin 3.2 g/dL (3.4-5.0); Albumin/Globulin Ratio 1.1 (1.1-1.8); Anion Gap 8.2 mEq/L (5.0-15.0); Bilirubin Total 0.6 mg/dL (0.2-1.0); Globulin 2.8 g/dL (2.3-3.5); Potassium 4.2 mEq/L (3.5-5.1)
[2024-08-06] MEDS ORDERED: CEFTRIAXONE 1000 MG/VIAL ONE (13:26)
[2024-08-06] MEDS ORDERED: NA CHLORIDE 0.9% 100 ML ONE (13:26)
[2024-08-06] MEDS ORDERED: NA CHLORIDE 0.9% 500 ML ONE (13:26)
--- NOTE | 2024-08-06 13:40 | EDPHYS ---
Physician Documentation [facility] Name: Simone Baeza Age: 88 yrs Sex: Male : 1935 Arrival Date: 08/06/2024 Time: 11:18 Bed 13 Private MD: ED Physician Main Mckeon HPI: 08/06 12:39 This 88 yrs old Male presents to ER via EMS with complaints of NECK PAIN, kb KIDNEY PAIN. 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 Denies injury or fall. EMS states pt was at rest after a BM and started having the pain. reports pt was having an issue with constipation last week so they went to [facility] in [place] on Thursday where they inserted a pang for urinary retention. Pt reports pain has resolved since EMS gave toradol. . Historical: - Allergies: 11:27 Codeine; me1 11:27 Gluten Protein; me1 - PMHx: 11:27 diabetes mellitus; Hypertension; DVT; Kidney disease; me1 - PSHx: 11:27 Cholecystectomy; prostate; neck; me1 - Immunization history:: Adult Immunizations up to date. - Infectious Disease History:: Denies. - Social history:: Smoking status: Patient denies any tobacco usage or history of. ROS: 12:38 Constitutional: As per HPI kb Exam: 12:38 Constitutional: This is a well developed, well nourished patient who is awake, alert, kb and in no acute distress. Head/Face: Normocephalic, atraumatic. ENT: Moist Mucous membranes Cardiovascular: Regular rate Respiratory: Respirations even and unlabored. No increased work of breathing. Talking in full sentences Abdomen/GI: Soft, non-tender. No distention Back: No spinal tenderness. No costovertebral tenderness. Full range of motion. Skin: Warm, dry with normal turgor. Normal color. MS/ Extremity: Pulses equal, no cyanosis. Neurovascular intact. Full, normal range of motion. Neuro: Awake and alert, GCS 15, oriented to person, place, time, and situation. Vital Signs: 11:24 BP 110 / 58; Pulse 88; Resp 16; Temp 98.6; Pulse Ox 95% ; Weight 73.48 kg; Height 5 ft. me1 5 in. ; Pain 4/10; 12:00 BP 106 / 51; Pulse 84; Resp 16; Pulse Ox 98% ; me1 13:00 BP 109 / 49; Pulse 84; Resp 16; Pulse Ox 98% on 2 lpm NC; me1 14:00 BP 132 / 58; Pulse 75; Resp 16; Pulse Ox 99% ; me1 15:00 BP 115 / 61; Pulse 73; Resp 16; Pulse Ox 99% ; me1 11:24 Body Mass Index 26.96 (73.48 kg, 165.1 cm) me1 11:24 Pain Scale: Adult me1 MDM: 11:24 Medical Screening Exam initiated kb 12:38 Data reviewed: vital signs, nurses notes. External Records Reviewed: Outside ED record: maria luz [facility] ER results reviewed from Thursday. . 13:36 Differential diagnosis: UTI, pyelonephritis, kidney stone, musculoskeletal pain. kb Consideration of Admission/Observation Patient was admitted/placed on observation. Escalation of care including admission/observation considered. Management of patient was discussed with the following: Hospitalist: Pt accepted for admission under Dr Sen. Historians other than the Patient: EMS: [facility]. Counseling: I had a detailed discussion with the patient and/or guardian regarding the historical points, exam findings, and any diagnostic results supporting the discharge/admit diagnosis, lab results, radiology results, the need for further work-up and treatment in the hospital. 08/06 11:24 Order name: CBC with Diff; Complete Time: 13:51 kb 08/06 11:24 Order name: CMP 08/06 11:24 Order name: Lipase 08/06 11:24 Order name: Urinalysis w/ reflexes; Complete Time: 12:17 kb 08/06 12:17 Order name: Urine Culture [facility] 08/06 13:43 Order name: CBC Smear Scan; Complete Time: 13:51 EDSC 08/06 11:24 Order name: CT Abd/Pelvis - Without Contrast; Complete Time: 12:03 kb 08/06 11:24 Order name: IV Saline Lock; Complete Time: 11:45 kb 08/06 11:24 Order name: Labs collected and sent; Complete Time: 11:45 kb Administered Medications: 13:34 Drug: NS 0.9% IV 500 ml 500 ml IV at 1 bolus once; to be given as a bolus over 30 me1 minutes Volume: 500 ml; Route: IV; Rate: 1 bolus; Site: left antecubital; 14:14 Follow up: Response: No adverse reaction; IV Status: Completed infusion; IV Intake: me1 500ml 13:34 Drug: Rocephin IV 1 grams IV at calculated rate once; Given slow IV push per pharmacy me1 instructions Route: IV; Rate: calculated rate; Site: left antecubital; 14:14 Follow up: Response: No adverse reaction; IV Status: Completed infusion; IV Intake: me1 100ml Disposition Summary: 08/06/24 13:40 Hospitalization Ordered Notes: Hospitalization Status: Observation kb Provider: Kianna Sen Location: Telemetry/MedSurg (observation) kb Condition: Stable kb Problem: new kb Symptoms: are unchanged kb Bed/Room Type: Standard Room Assignment: 201(08/06/24 14:21) sp Diagnosis - Acute kidney failure, unspecified - acute on chronic kb - UTI/ Urinary tract infection, site not specified kb Forms: - Medication Reconciliation Form kb - SBAR form kb - Leadership Thank You Letter kb Signatures: Dispatcher [employer] EDDeanne Geronimo, BOOKKEEPERS SUPERVISOR-C BOOKKEEPERS SUPERVISOR-Ckb Cara Flower Lee BOOKKEEPERS SUPERVISOR-C BOOKKEEPERS SUPERVISOR-Cla1 Charissa Torres, RAYSA RN me1 Corrections: (The following items were deleted from the chart) 14:21 13:40 kb sp
--- NOTE | 2024-08-06 13:40 | ER ---
Nurse's Notes [facility] Name: Simone Baeza Age: 88 yrs Sex: Male : 1935 Arrival Date: 08/06/2024 Time: 11:18 Bed 13 Private MD: Diagnosis: Acute kidney failure, unspecified-acute on chronic;UTI/ Urinary tract infection, site not specified Presentation: 08/06 11:24 Chief complaint: EMS states: toned out for severe back pain that started after using me1 the bathroom. Oneill inserted on for urinary retention. 18 G LAC, given toradol 15mg IV and pain is now a 4/10. Coronavirus screen: Vaccine status: Patient reports receiving the 2nd dose of the covid vaccine. Ebola Screen: No symptoms or risks identified at this time. Initial Sepsis Screen: Does the patient meet any 2 criteria? No. Patient's initial sepsis screen is negative. Does the patient have a suspected source of infection? No. Patient's initial sepsis screen is negative. Risk Assessment: Do you want to hurt yourself or someone else? Patient reports no desire to harm self or others. Onset of symptoms was August 06, 2024 at 11:00. 11:24 Method Of Arrival: EMS: [facility] 11:24 Acuity: SVEN 3 me1 Triage Assessment: 11:27 General: Appears in no apparent distress. well developed, well nourished, Behavior is me1 calm, cooperative, appropriate for age, Reports severe back pain after using the restroom, given toradol 15mg IV by EMS and pain went down to a 4/10. Pain: Complains of pain in left low back and right low back Pain does not radiate. Pain currently is 4 out of 10 on a pain scale. Quality of pain is described as aching, Pain began suddenly, Is continuous. EENT: No signs and/or symptoms were reported regarding the EENT system. Neuro: Level of Consciousness is awake, alert, obeys commands, Oriented to person, place, time, situation, Appropriate for age. Cardiovascular: Patient's skin is warm and dry. Respiratory: Airway is patent Respiratory effort is even, unlabored, Respiratory pattern is regular, symmetrical. GI: No signs and/or symptoms were reported involving the gastrointestinal system. : Oneill in place to gravity drainage. Derm: Skin is intact, is healthy with good turgor, Skin is pink, warm \T\ dry. Musculoskeletal: Reports pain in left low back and right low back. Historical: - Allergies: 11:27 Codeine; me1 11:27 Gluten Protein; me1 - PMHx: 11:27 diabetes mellitus; Hypertension; DVT; Kidney disease; me1 - PSHx: 11:27 Cholecystectomy; prostate; neck; me1 - Immunization history:: Adult Immunizations up to date. - Infectious Disease History:: Denies. - Social history:: Smoking status: Patient denies any tobacco usage or history of. Screenin:30 [facility] ED Fall Risk Assessment (Adult) History of falling in the last 3 months, nc1 including since admission No falls in past 3 months (0 pts) Confusion or Disorientation No (0 pts) Intoxicated or Sedated No (0 pts) Impaired Gait Yes (1 pt) Mobility Assist Device Used Yes (1 pt) Altered Elimination Yes (1 pt) Score/Fall Risk Level 0 - 2 = Low Risk Maintained a safe environment, Provided non-skid footwear, Hourly rounding (assess needs \T\ fall precautionary measures) done. Abuse screen: Denies threats or abuse. Nutritional screening: No deficits noted. Tuberculosis screening: No symptoms or risk factors identified. Assessment: 11:30 General: See triage assessment.. me1 Vital Signs: 11:24 BP 110 / 58; Pulse 88; Resp 16; Temp 98.6; Pulse Ox 95% ; Weight 73.48 kg; Height 5 ft. me1 5 in. ; Pain 4/10; 12:00 BP 106 / 51; Pulse 84; Resp 16; Pulse Ox 98% ; me1 13:00 BP 109 / 49; Pulse 84; Resp 16; Pulse Ox 98% on 2 lpm NC; me1 14:00 BP 132 / 58; Pulse 75; Resp 16; Pulse Ox 99% ; me1 15:00 BP 115 / 61; Pulse 73; Resp 16; Pulse Ox 99% ; me1 11:24 Body Mass Index 26.96 (73.48 kg, 165.1 cm) me1 11:24 Pain Scale: Adult nc1 ED Course: 11:20 Patient arrived in ED. [id number] 11:23 Deanne Morrison FNP-C is PHCP. ec2 11:23 Mckeon, Main, MD is Attending Physician. ec2 11:24 Charissa Torres, RAYSA is Primary Nurse. me1 11:27 Triage completed. me1 11:27 Arm band placed on Patient placed in an exam room. me1 11:30 Patient has correct armband on for positive identification. Bed in low position. Call me1 light in reach. Side rails up X 1. Provided Education on: POC. Verbalized understanding.. Client placed on continuous cardiac and pulse oximetry monitoring. NIBP monitoring applied. Pulse ox on. NIBP on. 11:30 No provider procedures requiring assistance completed. Maintain EMS IV. Dressing me1 intact. Good blood return noted. Site clean \T\ dry. Gauge \T\ site: 18g LAC. Flushed with 10 mL NS. 11:45 CT Abd/Pelvis - Without Contrast Sent. me1 11:45 Urinalysis w/ reflexes Sent. me1 11:45 Urine collected: Oneill catheter specimen, clear. me1 11:51 CT Abd/Pelvis - Without Contrast In Process Unspecified. EDMS 13:40 Main Mckeon MD is Hospitalizing Provider. kb 13:40 Kianna Sen MD is Hospitalizing Provider. kb 14:31 Patient admitted, IV remains in place. me1 Administered Medications: 13:34 Drug: NS 0.9% IV 500 ml 500 ml IV at 1 bolus once; to be given as a bolus over 30 me1 minutes Volume: 500 ml; Route: IV; Rate: 1 bolus; Site: left antecubital; 14:14 Follow up: Response: No adverse reaction; IV Status: Completed infusion; IV Intake: me1 500ml 13:34 Drug: Rocephin IV 1 grams IV at calculated rate once; Given slow IV push per pharmacy me1 instructions Route: IV; Rate: calculated rate; Site: left antecubital; 14:14 Follow up: Response: No adverse reaction; IV Status: Completed infusion; IV Intake: me1 100ml Medication: 11:30 VIS not applicable for this client. me1 Intake: 14:14 IV: 500ml; Total: 500ml. me1 14:14 IV: 100ml; Total: 600ml. me1 Outcome: 13:40 Decision to Hospitalize by Provider. kb 14:31 Admitted to Med/surg accompanied by tech, via wheelchair, room 201, with oxygen, with me1 chart, Report called to faxed, receipt confirmed with Melissa. 14:31 Condition: stable 14:31 Instructed on the need for admit, 15:10 Patient left the ED. me1 Signatures: Dispatcher [employer] Deanne Armenta, CHYNA VERAP-Bibiana Casiano [email or web address] Charissa Torres RN RN me1 Main Mckeon MD MD ec2
[2024-08-06 13:43] LABS: Blood Morphology Comment NOT SEEN (NOT SEEN); Platelet Estimate DECR; White Blood Cell Scan OK (OK)
[2024-08-06] MEDS ORDERED: ONDANSETRON 4 MG/2 ML VIAL IV PRN (15:39)
--- NOTE | 2024-08-06 15:39 | P.HP ---
Certification for Inpatient Patient admitted to: Observation With expected LOS: <2 Midnights Patient will require the following post-hospital care: None Practitioner: I am a practitioner with admitting privileges, knowledge of patient current condition, hospital course, and medical plan of care. Services: Services provided to patient in accordance with Admission requirements found in Title 42 Section 412.3 of the Code of Federal Regulations <Dayton Dia - Last Filed: 08/06/24 15:36> Patient History Date of Service: 08/06/24 Reason for admission: UTI History of Present Illness: 88-year-old male with a history of CKD 4, DVT, hypertension, prn-cwjbrum-wcguiyvsr diabetes, seizure disorder presents to the emergency [facility] with chief complaint of low back pain. On 08/01/2024 he was seen at [facility] for abdominal pain and found to have urinary retention of greater than 1 L. A Oneill catheter was inserted, at that time his creatinine was 2 and his urine did not show infection. He followed up with his urologist on 08/04/2024 and was instructed to leave the catheter in and return on 08/08/2024Thursday to possibly have the catheter removed. He began having pain earlier today and for that reason came to the emergency department. He was evaluated in the ER his labs were significant for a mild acute kidney injury with a creatinine of 2.48, his baseline is right around 2 UA with leuk esterase, red blood cells, white blood cells, blood and nitrite positive. He is afebrile white blood cell count is 9.7 CT of the abdomen pelvis without contrast was performed which was negative for acute findings. 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 -: Neuropathy -: back neck -: gall bladder -: lower back -: Bilat cataract sx - Family History Mother -: Hypertension - Social History Alcohol use: Yes CD- Drugs: No Caffeine use: Yes <Dayton Dia - Last Filed: 08/06/24 15:36> Date of Service: 08/06/24 <Kianna Sen - Last Filed: 08/07/24 00:48> Allergies codeine Allergy (Verified 11/01/17 23:03) Unknown Gluten Protein Allergy (Uncoded 11/01/17 23:03) Unknown Home Medications: Amlodipine Besylate 5 mg PO DAILY 11/01/17 Fish Oil/Dha/Epa [Fish Oil 1,200 mg Fish Oil] 1 cap PO DAILY 11/01/17 Folic Acid 0.4 mg PO DAILY 11/01/17 Gabapentin [Gralise] 300 mg PO TID 11/01/17 Glucosamine/D3/Boswellia Viviana [Osteo Bi-Flex Tablet] 1 each PO DAILY 11/01/17 Pioglitazone HCl 30 mg PO DAILY 11/01/17 Rivaroxaban [Xarelto] 20 mg PO DAILY 11/01/17 Tramadol HCl [Ultram] 50 mg PO Q6H PRN 11/01/17 Vit A/C/E/Zinc/Selenium/Copper [Vision Formula Tablet] 1 each PO DAILY 11/01/17 glipiZIDE [Glucotrol*] 5 mg PO DAILY 11/01/17 lamoTRIgine [Lamictal*] 25 mg PO DAILY 11/01/17 Ciprofloxacin HCl [Cipro 250 MG Tablet*] 250 mg PO BID #14 tab 11/02/17 Review of Systems 10-point ROS is otherwise unremarkable Musculoskeletal: Back Pain <Dayton Dia - Last Filed: 08/06/24 15:36> Physical Examination - Vital Signs Temperature: 98.6 F Blood Pressure: 115/61 Pulse: 73 Respirations: 16 - Physical Exam General: Alert, In no apparent distress, Oriented x3 HEENT: Atraumatic, PERRLA, EOMI Neck: Supple, 2+ carotid pulse no bruit, No LAD Respiratory: Clear to auscultation bilaterally, Normal air movement Cardiovascular: Regular rate/rhythm, Normal S1 S2 Gastrointestinal: Normal bowel sounds, No tenderness Musculoskeletal: No tenderness Integumentary: No rashes Neurological: Normal gait, Normal speech, Normal strength at 5/5 x4 extr, Normal tone, Normal affect Urinary: Oneill catheter - Studies Laboratory Data (last 24 hrs) 08/06/24 08/06/24 12:06 12:06 WBC 9.70 Hgb 13.3 L Hct 38.7 L Plt Count 139 L Sodium 133 L Potassium 4.2 BUN 28 H Creatinine 2.48 H Glucose 206 H Total Bilirubin 0.6 AST 14 L ALT 16 Alkaline Phosphatase 86 Lipase [place] [employer] <Dayton Dia - Last Filed: 08/06/24 15:36> - Studies Laboratory Data (last 24 hrs) 08/06/24 08/06/24 12:06 12:06 WBC 9.70 Hgb 13.3 L Hct 38.7 L Plt Count 139 L Sodium 133 L Potassium 4.2 BUN 28 H Creatinine 2.48 H Glucose 206 H Total Bilirubin 0.6 AST 14 L ALT 16 Alkaline Phosphatase 86 Lipase 21 <Kianna Sen - Last Filed: 08/07/24 00:48> Assessment and Plan - Plan Assessment: Catheter associated UTI Urinary retention CECILIA on CKD 4 History of DVT on chronic anticoagulation Diabetes mellitus type 6gmy-ynaherk-ageudqwal Hypertension Seizure disorder Plan: Catheter associated UTI Urinary retention Started on Rocephin, urine culture obtained Not septic at this time Continue gentle IV fluids and antibiotics Has appointment with urology on 08/08 CECILIA on CKD 4 Baseline creatinine~2 Holding his p.o. Lasix, give gentle IV fluids overnight Recheck chemistry in the morning History of DVT on chronic anticoagulation Xarelto continued Diabetes mellitus type 1hdg-kfbsrrk-debsukodi ACHS Accu-Chek, sliding scale insulin Hypertension Hold oral antihypertensive agents as blood pressure is soft Resume when appropriate Seizure disorder Depakote and lamotrigine continued Last seizure around 1 year ago well-controlled per DVT PPX: Continue Xarelto Code status: Full code Discharge Plan: Home Plan to discharge in: 24 Hours - Advance Directives Does patient have a Living Will: No Does patient have a Durable POA for Healthcare: No - Code Status/Comfort Care Code Status Assessed: Yes (Full code) Critical Care: No Time Spent Managing Pts Care (In Minutes): 65 <Dayton Dia - Last Filed: 08/06/24 15:36> Date of Service: 08/06/24 Chart has been reviewed. Events of the last 24 hours have been noted. Case discussed with OLIVIER. I performed a substantial part of the MDM during this patient's care today. I personally made or approved the documented management plan and acknowledge its risk of complications. I agree with the findings and documentation provided in the OLIVIER's notes Continue with antibiotic therapy and continue with out of bed and ambulating. Patient needs to build her strength up and will work on discharge planning at that time. However, if he is not able to build the strength up and he is generally weak he may need placement for rehab. Reassess once his antibiotics have been his infection under control and will monitor his neuromuscular status. <Kianna Sen - Last Filed: 08/07/24 00:48>
[2024-08-06 17:40] VITALS: BMI 26.9
[2024-08-06 17:57] VITALS: O2SAT 95
[2024-08-06] MEDS: NA CHLORIDE 0.9% 1,000 ML IV SCH (18:14)
[2024-08-06] MEDS ORDERED: POLYETHYL GLY 3350 17 GM/DOSE PO PRN (18:27)
[2024-08-06] MEDS: dexAMETHasone 4 MG/ML VIAL IV ONE (19:08)
[2024-08-06] MEDS: POLYETHYL GLY 3350 17 GM/DOSE PO ONE (19:08)
[2024-08-06] MEDS: GABAPENTIN 300 MG CAP PO SCH (20:15)
[2024-08-06] MEDS: lamoTRIgine 100 MG TAB PO SCH (20:15)
[2024-08-06] MEDS ORDERED: GABAPENTIN 400 MG CAP PO SCH (21:00)
[2024-08-07] MEDS: PANTOPRAZOLE 40MG TABLET PO SCH (04:39)
[2024-08-07 05:23] LABS: Absolute Lymphocytes (CBC) 0.7 K/uL (0.7-4.9); Absolute Monocytes 0.9 K/uL (0.1-1.3); Absolute Neutrophil 9.6 K/uL (1.8-8.0); Basophils % 0.3 % (0-1.3); Hematocrit 42.1 % (39.6-49.0); Hemoglobin 14.4 g/dL (13.6-17.9); Lymphocytes % 6.1 % (15.3-44.8); MCH 33.6 pg (27.0-35.0); MCHC 34.2 g/dL (32.0-36.0); MCV 98.3 fL (80-100); MPV 10.5 fL (7.6-11.3); Monocytes % 8.4 % (3.3-12.3); Platelets 143 thou/uL (152-406); RBC Red Blood Cell Count 4.28 M/uL (4.33-5.43); Red Cell Distribution Width 13.4 % (12.1-15.2)
[2024-08-07 05:27] LABS: Neutrophils % 85.2 % (41.7-73.7)
[2024-08-07 05:45] LABS: ALT/SGPT 16 U/L (16-61); Albumin 3.1 g/dL (3.4-5.0); Albumin/Globulin Ratio 0.9 (1.1-1.8); Alkaline Phosphatase 104 U/L (45-117); Anion Gap 8.5 mEq/L (5.0-15.0); BUN Blood Urea Nitrogen 31 mg/dL (7-18); Bicarbonate 28 mEq/L (21-32); Bilirubin Total 0.5 mg/dL (0.2-1.0); Globulin 3.4 g/dL (2.3-3.5); Glomerular Filtration Rate 24 ml/min (=/>90); Glucose Level 217 mg/dL (74-106); Potassium 4.5 mEq/L (3.5-5.1); Protein, Total 6.5 g/dL (6.4-8.2); Sodium Level 136 mEq/L (136-145)
[2024-08-07 05:56] LABS: AST/SGOT < 10 U/L (15-37)
[2024-08-07] MEDS: CEFTRIAXONE 1,000 MG in NA CHLORIDE 0.9% 50 ML IVPB SCH (08:13)
[2024-08-07] MEDS: OXYBUTYNIN ER 5 MG TAB PO SCH (08:13)
[2024-08-07] MEDS: ASPIRIN 325 MG TAB PO SCH (08:13)
[2024-08-07] MEDS: TAMSULOSIN 0.4 MG SR CAP PO SCH (08:14)
[2024-08-07] MEDS: FLU (Fluarix Triv) TS24-25(6MOS UP)/PF 45 MCG/0.5 ML Syringe IM ONE (08:15)
[2024-08-07] MEDS: DIVALPROEX DR 250 MG TAB PO SCH (08:19)
[2024-08-07] MEDS: RIVAROXABAN 10 MG TABLET PO SCH (08:20)
[2024-08-07] MEDS ORDERED: Oxycodone HCl/Acetaminophen 5/325 MG TAB PO PRN (11:17)
--- NOTE | 2024-08-07 11:21 | P.PN ---
Subjective Date of Service: 08/07/24 Chief Complaint: UTI No change in patient's condition he still complains of urinary discomfort and has a catheter with UTI prior to that was treated with Cipro Review of Systems 10-point ROS is otherwise unremarkable Physical Examination - Vital Signs Temperature: 98 F Blood Pressure: 160/71 Pulse: 66 Respirations: 16 Pulse Ox (%): 95 - Physical Exam General: Alert, In no apparent distress, Oriented x3 Neck: No Thyromegaly Cardiovascular: No edema, Normal pulses, Regular rate/rhythm, Normal S1 S2 - Studies Laboratory Data (last 24 hrs) 08/06/24 08/06/24 12:06 12:06 WBC 9.70 Hgb 13.3 L Hct 38.7 L Plt Count 139 L Sodium 133 L Potassium 4.2 BUN 28 H Creatinine 2.48 H Glucose 206 H Total Bilirubin 0.6 AST 14 L ALT 16 Alkaline Phosphatase 86 Lipase 21 Assessment And Plan - Current Problems (Diagnosis) (1) Urinary tract infection Onset Date: 11/02/17 Current Visit: No Status: Acute Plan: Patient is 88 years of age admitted with urosepsis negative organisms have been isolated in the urine he was prior to that treated with Cipro failed outpatient therapy also has renal failure presumed chronic no acute changes on abdominal pe lvic CT scan count is minimally elevated far is not running any fever sutures are pending with Rocephin patient has a Oneill catheter consult urology Qualifiers: Urinary tract infection type: site unspecified Hematuria presence: without hematuria Qualified Code(s): N39.0 - Urinary tract infection, site not specified
[2024-08-08 05:03] LABS: Absolute Basophils 0.1 K/uL (0-0.5); Absolute Eosinophils 0.2 K/uL (0-0.5); Absolute Lymphocytes (CBC) 0.9 K/uL (0.7-4.9); Absolute Monocytes 0.9 K/uL (0.1-1.3); Absolute Neutrophil 5.8 K/uL (1.8-8.0); Eosinophils % 2.2 % (0-4.4); Hematocrit 42.2 % (39.6-49.0); Lymphocytes % 11.3 % (15.3-44.8); MCHC 33.3 g/dL (32.0-36.0); MCV 98.9 fL (80-100); MPV 10.1 fL (7.6-11.3); Monocytes % 11.5 % (3.3-12.3); Nucleated Red Blood Cells % 0.1 % (0-0); Platelets 156 thou/uL (152-406); RBC Red Blood Cell Count 4.26 M/uL (4.33-5.43); Red Cell Distribution Width 13.3 % (12.1-15.2)
[2024-08-08 05:23] LABS: Albumin/Globulin Ratio 0.9 (1.1-1.8); Anion Gap 7.1 mEq/L (5.0-15.0); Bilirubin Total 0.3 mg/dL (0.2-1.0); Globulin 3.3 g/dL (2.3-3.5); Potassium 4.1 mEq/L (3.5-5.1); Protein, Total 6.3 g/dL (6.4-8.2)
[2024-08-08] MEDS: CIPROFLOXACIN HCL 500 MG TAB PO SCH (09:37)
[2024-08-08] MEDS: MORPHINE 2 MG/ML SYR IV PRN (09:41)
--- NOTE | 2024-08-08 10:32 | P.PN ---
Date of Service: 08/08/24 Subjective: feels dizzy after morphine feels weak R flank/back pain ROS: 10 point ROS as noted above, otherwise negative Physical Exam: GEN: Alert, oriented, NAD CV: Regular rate and rhythm, no edema Pulm: Nonlabored respirations on room air, clear bilaterally ABD: soft, nontender, nondistended Neuro: Normal speech, normal affect Problem List: Catheter associated UTI Urinary retention CECILIA on CKD4 History of DVT on chronic anticoagulation NIDDM2 Hypertension Seizure disorder Catheter associated UTI Urinary retention urine cx (08/06): Enterobacter Aerogenes, resistant to rocephin/cefa zolin/augmentin/ampicillin. (intermediate resistance to nitro/unasyn) Oneill placed ~1 week ago. Has not been exchanged since then. He was seen by his urologist on 08/04 and was instructed to leave catheter in place with the plan to follow up on the 08/08/24. Family reports not previously being given any antibiotics to her knowledge, and none seen on EMR. She states they were only given Tamsulosin/Oxybutynin. Patient will need to reschedule follow up appointment with urology. Continue IV ciprofloxacin (08/08-) continue home Tamsulosin/Oxybutynin Urology consulted by Dr. 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 Continue to monitor CECILIA on CKD4 Baseline creatinine ~2. Holding his oral Lasix, continue IV fluids Continue to monitor renal function. Monitor and replete electrolytes as needed. Creatinine improving History of DVT on chronic anticoagulation continue home xarelto Monitor INR NIDDM2 ACHS Accu-Chek, SSI Hypertension resume home amlodipine, vaslartan Seizure disorder contine home Depakote, lamotrigine Last seizure around 1 year ago per family VTE: home xarelto Code: Full Dispo: Home Time Spent Managing Pts Care (In Minutes): 55
[2024-08-08] MEDS: VALSARTAN 160 MG TAB PO SCH (11:16)
[2024-08-08] MEDS: AMLODIPINE 5 MG TAB PO SCH (11:16)
[2024-08-08] MEDS: CIPROFLOXACIN 400mg IV 400 MG/200 ML BAG IV SCH (11:16)
[2024-08-08] MEDS: INSULIN REGULAR (HUMAN) 100 UNIT/ML SQ SCH (22:17)
[2024-08-09 05:18] LABS: Absolute Basophils 0.1 K/uL (0-0.5); Absolute Eosinophils 0.3 K/uL (0-0.5); Absolute Lymphocytes (CBC) 0.7 K/uL (0.7-4.9); Absolute Monocytes 0.9 K/uL (0.1-1.3); Absolute Neutrophil 4.7 K/uL (1.8-8.0); Basophils % 1.1 % (0-1.3); Eosinophils % 4.3 % (0-4.4); Hematocrit 41.4 % (39.6-49.0); Hemoglobin 13.9 g/dL (13.6-17.9); Lymphocytes % 10.5 % (15.3-44.8); MCHC 33.5 g/dL (32.0-36.0); MCV 98.7 fL (80-100); MPV 9.3 fL (7.6-11.3); Monocytes % 13.2 % (3.3-12.3); Neutrophils % 70.9 % (41.7-73.7); Nucleated Red Blood Cells % 0.1 % (0-0); Platelets 162 thou/uL (152-406); RBC Red Blood Cell Count 4.19 M/uL (4.33-5.43); Red Cell Distribution Width 13.1 % (12.1-15.2)
[2024-08-09 05:35] LABS: Albumin 2.9 g/dL (3.4-5.0); Albumin/Globulin Ratio 0.9 (1.1-1.8); Alkaline Phosphatase 85 U/L (45-117); Anion Gap 6.5 mEq/L (5.0-15.0); BUN Blood Urea Nitrogen 22 mg/dL (7-18); Bicarbonate 29 mEq/L (21-32); Bilirubin Total 0.3 mg/dL (0.2-1.0); Globulin 3.2 g/dL (2.3-3.5); Glomerular Filtration Rate 36 ml/min (=/>90); Glucose Level 166 mg/dL (74-106); Potassium 4.5 mEq/L (3.5-5.1); Protein, Total 6.1 g/dL (6.4-8.2); Sodium Level 139 mEq/L (136-145)
[2024-08-09 05:39] LABS: ALT/SGPT < 14 U/L (16-61); AST/SGOT < 10 U/L (15-37)
[2024-08-09] MEDS ORDERED: INSULIN REGULAR (HUMAN) 100 UNIT/ML SQ SCH (07:30)
[2024-08-09] MEDS: PANTOPRAZOLE 40MG TABLET PO SCH (08:05)
--- NOTE | 2024-08-09 14:07 | P.DS ---
Admission Date: 08/07/24 Discharge Date: 08/09/24 Disposition: DC HOME/HOME HEALTH CARE Reason for Admission: UTI Hospital Course: Problem List: Catheter associated UTI Urinary retention CECILIA on CKD4 History of DVT on chronic anticoagulation NIDDM2 Hypertension Seizure disorder Catheter associated UTI Urinary retention urine cx (08/06): Enterobacter Aerogenes, resistant to rocephin/cefazolin/augmentin/ampicillin. (intermediate resistance to nitro/unasyn) Pang placed ~1 week ago. Has not been exchanged since then. He was seen by his urologist on 08/04 and was instructed to leave catheter in place with the plan to follow up on the 08/08/24. Family reports not previously being given any antibiotics to her knowledge, and none seen on EMR. She states they were only given Tamsulosin/Oxybutynin. Patient will need to reschedule follow up appointment with urology. Continue IV ciprofloxacin (08/08-) continue home Tamsulosin/Oxybutynin Urology consulted by Dr. 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 Continue to monitor CECILIA on CKD4 Baseline creatinine ~2. Holding his oral Lasix, continue IV fluids Continue to monitor renal function. Monitor and replete electrolytes as needed. Creatinine improving History of DVT on chronic anticoagulation continue home xarelto Monitor INR NIDDM2 ACHS Accu-Chek, SSI Hypertension resume home amlodipine, vaslartan Seizure disorder contine home Depakote, lamotrigine Last seizure around 1 year ago per family Patient presents with lower back pain, urinary retention. Patient was found to have a UTI. Urine culture ended up growing Enterobacter Aerogenes, resistant to rocephin/cefazolin/augmentin/ampicillin. (intermediate resistance to nitro/unasyn) Antibiotics were switched to oral cipro following culture results and patient had improvement of his symptoms. Patient remained afebrile > 24 hours and leukocytosis quickly resolved within 24 hours. Patient was feeling better, afebrile without leukocytosis, pain improving, and was deemed stable for discharge. Patient is to be discharged with pang in place, with further management per his urologist. He reports having follow up with Urology later today 08/08/24. Vital Signs/Physical Exam: Temp Pulse Resp BP Pulse Ox 97.8 F 68 16 144/56 H 97 08/09/24 12:00 08/09/24 12:00 08/09/24 12:00 08/09/24 13:15 08/09/24 12:00 General: In no apparent distress, Other (Awake and interactive) HEENT: Scleral icterus Neck: JVD not distended Respiratory: Clear to auscultation bilaterally, Normal air movement Cardiovascular: No edema, Regular rate/rhythm, Normal S1 S2 Gastrointestinal: Soft and benign, Non-distended Musculoskeletal: No swelling Integumentary: No rashes, No cyanosis Neurological: Normal strength at 5/5 x4 extr Laboratory Data at Discharge: WBC 6.60 thou/uL (4.3-10.9) 08/09/24 04:53 Hgb 13.9 g/dL (13.6-17.9) 08/09/24 04:53 Hct 41.4 % (39.6-49.0) 08/09/24 04:53 Plt Count 162 thou/uL (152-406) 08/09/24 04:53 Sodium 139 mEq/L (136-145) 08/09/24 04:53 Potassium 4.5 mEq/L (3.5-5.1) 08/09/24 04:53 BUN 22 mg/dL (7-18) H 08/09/24 04:53 Creatinine 1.80 mg/dL (0.70-1.30) H 08/09/24 04:53 Glucose 166 mg/dL (74-106) H 08/09/24 04:53 Total Bilirubin 0.3 mg/dL (0.2-1.0) 08/09/24 04:53 AST < 10 U/L (15-37) L 08/09/24 04:53 ALT < 14 U/L (16-61) L 08/09/24 04:53 Alkaline Phosphatase 85 U/L (45-117) 08/09/24 04:53 Lipase 21 U/L (13-75) 08/06/24 12:06 Home Medications: Folic Acid 800 mg PO DAILY 11/01/17 Rivaroxaban [Xarelto] 10 mg PO DAILY 11/01/17 glipiZIDE [Glucotrol*] 5 mg PO DAILY 11/01/17 lamoTRIgine [Lamictal*] 25 mg PO DAILY 11/01/17 Alpha Lipoic Acid [Lipoic Acid] 25 gm PO DAILY 08/08/24 Aspirin [Aspirin EC 325 MG] 325 mg PO DAILY 08/08/24 Divalproex [Depakote Sprinkle*] 250 mg PO BID 08/08/24 Omeprazole 20 mg PO BID 08/08/24 Oxybutynin Chloride [Oxybutynin Chloride ER] 10 mg PO DAILY 08/08/24 Amlodipine Besylate 10 mg PO DAILY #30 tab 08/09/24 Ciprofloxacin HCl [Cipro 500 MG Tablet] 500 mg PO BID #24 tab 08/09/24 Gabapentin [Gralise] 400 mg PO BID #60 tab 08/09/24 Tamsulosin [Flomax*] 0.4 mg PO DAILY #30 cap 08/09/24 Valsartan [Diovan*] 160 mg PO DAILY #30 tab 08/09/24 New Medications: Amlodipine Besylate 10 mg PO DAILY #30 tab Ciprofloxacin HCl [Cipro 500 MG Tablet] 500 mg PO BID #24 tab Valsartan [Diovan*] 160 mg PO DAILY #30 tab Tamsulosin [Flomax*] 0.4 mg PO DAILY #30 cap Gabapentin [Gralise] 400 mg PO BID #60 tab Physician Discharge Instructions: Physician discharge instructions: Patient presents with lower back pain, urinary retention. Patient was found to have a UTI. Urine culture ended up growing Enterobacter Aerogenes, resistant to rocephin/cefazolin/augmentin/ampicillin. (intermediate resistance to nitro/unasyn) Antibiotics were switched to oral cipro following culture results and patient had improvement of his symptoms. Patient remained afebrile > 24 hours and leukocytosis quickly resolved within 24 hours. Patient was feeling better, afebrile without leukocytosis, pain improving, and was deemed stable for discharge. Patient is to be discharged with pang in place, with further management per his urologist. He reports having follow up with Urology later today 08/08/24. Medications: Ciprofloxacin x7 days Follow up: PCP 3-5 days Urology as previously discussed. Please call to schedule / confirm appointments Diet: ADA Activity: Fall precautions Followup: Kosta Navarro MD [Primary Care Provider] - 1 Week [facility] [ACTIVE - CAN ADMIT] - 1-2 Weeks Time spent managing pt's care (in minutes): 36
[2024-08-09 15:43] VITALS: BP 153/67; TEMP 97.6
== END 2024-08-09 15:50 | disposition home health service (06) | DRG 698 ==
LOC: ER 11:18 → 2ND 14:16 → OBSVTOIN 08-07 17:58
PROVIDERS: ADMIT Hospitalist; ATTEND Internal Medicine
DX: T83.511A Infection and inflammatory reaction due to indwelling urethral catheter, initial encounter (principal); N17.0 Acute kidney failure with tubular necrosis; N18.4 Chronic kidney disease, stage 4 (severe); E11.22 Type 2 diabetes mellitus with diabetic chronic kidney disease; I12.9 Hypertensive chronic kidney disease with stage 1 through stage 4 chronic kidney disease, or unspecified chronic kidney disease; Z79.4 Long term (current) use of insulin; Z86.718 Personal history of other venous thrombosis and embolism; Z79.01 Long term (current) use of anticoagulants; Z90.49 Acquired absence of other specified parts of digestive tract; G40.909 Epilepsy, unspecified, not intractable, without status epilepticus; R33.9 Retention of urine, unspecified
CPT/HCPCS: 36415; 74176; 80053; 81001; 82947; 83690; 85025; 87077; 87086; 87088; 87186; 96365; 99285; G0378; J0696; J0744; J1100; J2270; J7030; J7040